=== PATIENT | male | born 1960 | race Caucasian/White ===

== ENCOUNTER → 2016-07-16 | Outpatient (CLI) | payer BC ==
[~2016-07-16] MED LIST: ACET-1311 PO; ADAL1KIT INJ; ADAL40KI SC; ALBUAER19 INH; ALPR0.25 PO; AMLO10TA2 PO; APR25 PO; ASPI81TA21 PO; BUPR-79 PO; BUPR150T5 PO; BUPRTAB PO; BUTA1CAP17 PO; CHOL100010 PO; CIPR1TAB11 PO; DICY10CA55 PO; FLAGYL PO; FLM4 PO; FLUO0.05 TOP; FLUO20CA35 PO; FLUT0.0529 NAE; FLUT0.15 NAE; FLUT1INH INH; LIDO4CRE10 TOP; LISI40TA PO; LPT/40 PO; MAGN1CAP2 PO; MAGN400T6 PO; METO50TA16 PO; NF34 TOP; OMEGCAP2 PO; OMEP20CA9 PO; ONDA4TAB10 SL; OPTIRAY 320 IV PRN; OXGN; PANC1CAP21 PO; PANC5000 PO; POT1TAB PO; TAMS0.4C38 PO; TRAM-10 PO; VITA1TAB6 PO; VITACAP14 PO; VITAMIN B PO; VITATAB19 PO; VNTHFA/IN INH
--- NOTE | 2016-07-16 08:23 | DIAGNOSTIC IMAGING REPORT ---
CT SCAN OF THE ABDOMEN COMBO CLINICAL HISTORY: Generalized abdominal pain. COMPARISON STUDY: Abdominal CT dated 03/22/2016. TECHNIQUE: Before and following the IV administration of 118 cc of Optiray 320, CT scan of the abdomen is performed from the lung bases to the pelvic inlet. Images are reviewed in the axial, sagittal, and coronal planes. IV contrast was administered without complication. Automated dose control exposure was utilized. CT DOSE: 1505.88 mGycm FINDINGS: Lung bases: The heart is normal in size and without pericardial effusion. Emphysema is noted at the lung bases. There is linear scarring versus atelectasis in lower lobes. No airspace consolidation or pleural effusion is seen. There is a tiny hiatal hernia. Liver: The contrast-enhanced liver is normal in size, contour, and attenuation. Scattered hepatic cysts measure up to 1 mm. Additional subcentimeter hepatic hypodensities also likely represent cysts but are too small for definitive characterization. There is no intrahepatic biliary ductal dilatation. The hepatic veins and portal veins are patent. Gallbladder: Surgically absent noting clips in the gallbladder fossa. Spleen: Normal in size and attenuation. Pancreas: Unremarkable. Adrenal glands: Unremarkable. Kidneys: The contrast enhanced kidneys are normal in size and without hydronephrosis. There are at least 7 nonobstructing left renal calculi measuring up to 6 mm. There are least 12 right nonobstructing renal calculi measuring up to 4 mm. No stones are seen in the proximal or mid ureters. A circumaortic left renal vein is incidentally noted. A 7.1 cm cyst is noted in the interpolar left kidney. Additional subcentimeter cortical hypodensities also likely represent cysts but are too small for definitive characterization. No enhancing cortical mass lesion is appreciated. Abdominal vasculature: The abdominal aorta is normal in course and caliber noting moderate atherosclerotic calcification. Bowel: Visualized portions of the small bowel and colon are normal in course and caliber. There is a tiny duodenal diverticulum. The appendix is well-visualized and normal. Peritoneum: There is no intraperitoneal free air or abdominal ascites. There is a small fat-containing local hernia. Lymphadenopathy: None. Skeletal structures: No lytic or blastic lesions are seen. IMPRESSION: 1. There are no acute infectious or inflammatory findings in the abdomen. 2. There are numerous bilateral nonobstructing renal calculi as above. There is no hydronephrosis, and no calculi are identified in the proximal to mid ureters. 3. Emphysematous change is noted at the lung bases. 4. Additional findings as detailed above. Electronically signed by: Ryan Ruiz M.D. 07/16/2016 8:22 AM Dictated Date/Time: 07/16/2016 8:06 AM
== END | disposition home or self-care (01) ==
LOC: C.CTS 05:48
PROVIDERS: ATTEND Family Medicine
DX: R10.84 Generalized abdominal pain (principal); N20.0 Calculus of kidney

== ENCOUNTER → 2016-09-08 | Outpatient (CLI) | payer BC ==
--- NOTE | 2016-09-08 14:08 | DIAGNOSTIC IMAGING REPORT ---
CT SCAN OF THE ABDOMEN AND PELVIS WITH IV CONTRAST CLINICAL HISTORY: Chronic generalized abdominal pain. COMPARISON STUDY: Prior abdominal CT scans, most recently dated 07/16/2016. TECHNIQUE: Following the IV administration of 94 cc of Optiray 320, CT scan of the abdomen and pelvis is performed from the lung bases to the proximal femora. Images reviewed in the axial, sagittal, and coronal planes. IV contrast was administered for without complication. CT DOSE: 826.84 mGycm FINDINGS: Lung bases: The heart is normal in size and without pericardial effusion. There is elevation of the right hemidiaphragm with associated atelectasis. No airspace consolidation or pleural effusion is seen. Mild emphysematous changes are suspected. A small hiatal hernia is noted. Liver: The contrast-enhanced liver is normal in size, contour, and attenuation. An 11 mm cyst is seen in the left lobe. Additional subcentimeter hypodensities also likely represent cysts but are too small for definitive characterization. There is minimal central intrahepatic biliary ductal dilatation, likely related to previous cholecystectomy. The hepatic veins and portal veins are patent. Gallbladder: Surgically absent noting clips in the gallbladder fossa. Spleen: Normal in size and attenuation. Pancreas: Unremarkable. Adrenal glands: Unremarkable. Kidneys: The contrast-enhanced kidneys are normal in size and without hydronephrosis. There are numerous (greater than 10) small bilateral nonobstructing renal calculi. No ureteral calculus is seen. The largest stone is on the left and measures up to 6 mm. There is a 6.8 cm left renal cyst. Additional subcentimeter cortical hypodensities also likely represent cysts but are too small for definitive characterization. The kidneys enhance symmetrically. A circumaortic left renal vein is incidentally noted. Abdominal vasculature: The abdominal aorta is normal in course and caliber noting mild atherosclerotic calcification. Bowel: The small bowel and colon are normal in course and caliber. There is moderate sigmoid diverticulosis without CT evidence of acute diverticulitis. Moderate colonic fecal retention is noted. The appendix is not discretely visualized. A tiny duodenal diverticulum is incidentally noted. Peritoneum: There is no intraperitoneal free air or abdominal ascites. There is a small fat-containing umbilical hernia. Lymphadenopathy: None. Pelvic viscera: The bladder, prostate, and seminal vesicles are normal as visualized. Small varicoceles are suspected. There is a small fat-containing right inguinal hernia. Skeletal structures: No lytic or blastic osseous lesions are seen. There is mild lumbosacral spondylosis. IMPRESSION: 1. There are no acute infectious or inflammatory findings in the abdomen or pelvis. There is been no significant change from recent prior examinations. 2. Moderate sigmoid diverticulosis without CT evidence of acute diverticulitis. 3. Numerous bilateral nonobstructing renal calculi. 4. Emphysematous changes are suspected at the lung bases. 5. Additional findings as detailed above. Electronically signed by: Ryan Ruiz M.D. 09/08/2016 2:06 PM Dictated Date/Time: 09/08/2016 2:00 PM
== END | disposition home or self-care (01) ==
LOC: C.CTS 11:18
PROVIDERS: ATTEND Family Medicine
DX: R10.84 Generalized abdominal pain (principal); K57.32 Diverticulitis of large intestine without perforation or abscess without bleeding; K57.30 Diverticulosis of large intestine without perforation or abscess without bleeding; J43.9 Emphysema, unspecified; N20.0 Calculus of kidney; K40.90 Unilateral inguinal hernia, without obstruction or gangrene, not specified as recurrent; K42.9 Umbilical hernia without obstruction or gangrene

== ENCOUNTER → 2016-09-23 | Outpatient (CLI) | payer BC ==
[~2016-09-23] MED LIST changes: -OPTIRAY 320 IV PRN
--- NOTE | 2016-09-23 09:24 | DIAGNOSTIC IMAGING REPORT ---
GASTROGRAFIN ENEMA CLINICAL HISTORY: Abdominal pain and nausea. Abnormal CT scan. COMPARISON STUDY: CT of the abdomen and pelvis September 08, 2016. FLUOROSCOPY TIME: 1.2 minutes. FINDINGS: Initially, a occupational therapy manager KUB was obtained. A single contrast Gastrografin enema was then performed following placement of a barium enema tip. 4 fluoroscopic images were obtained. Mucosal detail is diminished given single contrast technique with Gastrografin. However, no suspicious mucosal lesion was identified. There is extensive sigmoid diverticulosis. Contrast passed into the cecum. There was reflux of contrast into the small bowel. IMPRESSION: 1. Extensive sigmoid diverticulosis. 2. Otherwise, unremarkable single contrast Gastrografin enema. Decreased sensitivity for detection of mucosal lesions given single contrast Gastrografin technique although no suspicious findings. Electronically signed by: Malick Liz M.D. 09/23/2016 9:23 AM Dictated Date/Time: 09/23/2016 9:20 AM
== END | disposition home or self-care (01) ==
LOC: C.RAD 08:29
PROVIDERS: ATTEND Colon & Rectal Surgery
DX: K57.32 Diverticulitis of large intestine without perforation or abscess without bleeding (principal); R10.84 Generalized abdominal pain; K57.30 Diverticulosis of large intestine without perforation or abscess without bleeding

== ENCOUNTER → 2016-12-02 | Outpatient (CLI) | payer OTHER ==
[~2016-12-02] MED LIST changes: -FLUT1INH INH
--- NOTE | 2016-12-02 12:45 | DIAGNOSTIC IMAGING REPORT ---
CHEST 2 VIEWS ROUTINE CLINICAL HISTORY: J45.909 [id number] dyspnea COMPARISON STUDY: 08/22/2014 FINDINGS: Chronic fibrotic scarring left lung base. Lungs otherwise are clear. Diaphragms are smooth. No evidence for cardiac enlargement. IMPRESSION: Chronic change. No acute process. The above report was generated using voice recognition software. It may contain grammatical, syntax or spelling errors. Electronically signed by: Jerardo Gutierrez M.D. 12/02/2016 12:44 PM Dictated Date/Time: 12/02/2016 12:43 PM
== END | disposition home or self-care (01) ==
LOC: C.RAD1850 12:35
PROVIDERS: ATTEND Physician Assistant
DX: J45.909 Unspecified asthma, uncomplicated (principal)

== ENCOUNTER 2017-01-24 09:23 | Emergency (ER) | payer OTHER ==
[~2017-01-24] VITALS: Ht 180.3 cm; Wt 97.0 kg
[~2017-01-24 09:23] MED LIST changes: -ACET-1311 PO; -ADAL1KIT INJ; -BUPR-79 PO; -BUPRTAB PO; -BUTA1CAP17 PO; -CIPR1TAB11 PO; -FLAGYL PO; -FLUT0.15 NAE; -LIDO4CRE10 TOP; -MAGN400T6 PO; -NF34 TOP; -ONDA4TAB10 SL; -PANC5000 PO; -VITA1TAB6 PO; -VITACAP14 PO; -VNTHFA/IN INH
[2017-01-24 09:27] VITALS: TEMP 36.9; Ht 180.3 cm; Wt 97.0 kg
[2017-01-24] MEDS ORDERED: ACETAMINOPHEN 500 MG TAB PO STA (10:15)
[2017-01-24] MEDS ORDERED: METOCLOPRAMIDE HCL INJ 5 MG/ML 2 ML VIAL IV STA (10:15)
[2017-01-24] MEDS ORDERED: DiphenhydrAMINE HCL 50 MG/ML VIAL IV STA (10:15)
[2017-01-24] MEDS ORDERED: SODIUM CHLORIDE 0.9% 1000ML 1,000 ML IV SCH (10:15)
[2017-01-24 10:31] LABS: BASO % 0.5 %; BASO ABS # 0.06 K/uL (0-0.2); COMPLETE YES; EOS % 1.3 %; HEMATOCRIT 39.9 % (42-52); IG% 0.8 %; LYMPH % 31.4 %; LYMPH ABS # 3.53 K/uL (1.2-3.4); MEAN CELL VOLUME 91.3 fL (80-100); MEAN CORPUSCULAR HEMOGLOBIN 30.2 pg (25-34); MEAN CORPUSCULAR HGB CONC 33.1 g/dl (32-36); MEAN PLATELET VOLUME 10.2 fL (7.4-10.4); MONO % 7.5 %; NEUT % 58.5 %; PLATELET COUNT 237 K/uL (130-400); RED BLOOD COUNT 4.37 M/uL (4.7-6.1); WHITE BLOOD COUNT 11.23 K/uL (4.8-10.8)
[2017-01-24 10:41] LABS: ALT/SGPT 45 U/L (12-78); AST/SGOT 26 U/L (15-37); BLOOD UREA NITROGEN 20 mg/dl (7-18); BUN/CREATININE RATIO 18.4 (10-20); CALCIUM 8.7 mg/dl (8.5-10.1); CARBON DIOXIDE 26 mmol/L (21-32); CHLORIDE 102 mmol/L (98-107); GLUCOSE 109 mg/dl (70-99); MAGNESIUM 1.6 mg/dl (1.8-2.4); POTASSIUM 4.5 mmol/L (3.5-5.1); SODIUM 137 mmol/L (136-145)
[2017-01-24] MEDS ORDERED: FLUT0.15 NAE (10:43)
[2017-01-24] MEDS ORDERED: BUPR-79 PO (10:43)
[2017-01-24] MEDS ORDERED: NF34 TOP (10:43)
[2017-01-24 10:44] LABS: ALKALINE PHOSPHATASE 112 U/L (45-117); PHOSPHORUS 2.9 mg/dl (2.5-4.9)
--- NOTE | 2017-01-24 10:44 | EMERGENCY ROOM VISIT NOTE ---
History Report prepared by Monica: Josr Medellin Under the Supervision of: Dr. Nate Castro M.D. First contact with patient: 09:30 Chief Complaint: NAUSEA Stated Complaint: NAUSEA,DIZZY,NUMBNESS History of Present Illness The patient is a 56 year old white male with a past medical history of HTN, HLD , kidney stones, pancreatitis, IBS, laparoscopic cholecystectomy who presents to the ED with a cc of constant nausea beginning about two weeks ago. Positive headache, numbness, tingling, light headedness, eye twitching, leg twitching, leg swelling, and fatigue. Negative recent trauma, vomiting, recent travel, sick contacts, congestion, and sore throat. He states that he has been having troubles with his magnesium recently, and he thinks that it is low. Source of History: patient Onset: two weeks ago Position: other (global) Quality: other (nausea) Timing: constant Associated Symptoms: + headache, + fatigue, + numbness Note: Associated symptoms: tingling, light headed, eye twitching, leg twitching, leg swelling Review of Systems See HPI for pertinent positives and negatives. A total of ten systems were reviewed and were otherwise negative. Past Medical & Surgical Medical Problems: (1) Depression (2) Diverticulosis (3) GERD (gastroesophageal reflux disease) (4) Hemorrhoids (5) Hiatal hernia (6) High cholesterol (7) HTN (hypertension) (8) HTN (hypertension) (9) IBS (irritable bowel syndrome) (10) Kidney stones (11) Psoriasis Surgical Problems: (1) S/P cholecystectomy Family History FHx: diabetes mellitus FHx: kidney disease Heart disease Social History Smoking Status: Current Every Day Smoker Alcohol Use: occasionally Marital Status: single Occupation Status: employed Current/Historical Medications Scheduled Adalimumab (Humira), 40 MG INJ [id number] Amlodipine Besylate (Norvasc), 10 MG PO QAM Aspirin Enteric Coated (Ecotrin Or Generic), 81 MG PO QAM Atorvastatin (Lipitor), 40 MG PO QPM Bupropion Hcl (Wellbutrin Xl), 150 MG PO DAILY Cholecalciferol (Vitamin D), 1,000 UNITS PO DAILY Clobetasol Propionate (Clobetasol Propionate), 1 APPLN TOP BID Dicyclomine Hcl (Bentyl), 10 MG PO BID Fluoxetine (Prozac), 60 MG PO QAM Fluticasone Propionate (Nasal) (Flonase Allergy Relief), 2 SPRAYS SETH DAILY Home O2 Therapy (Oxygen), 2 LITERS NA HS Hydralazine Hcl (Apresoline), 25 MG PO BID Lidocaine (Anorectal) (Lidocaine), 1 APPLN TOP BID Lisinopril (Zestril), 40 MG PO QAM Magnesium Oxide (Mag-Ox), 800 MG PO AMHS Magnesium Oxide (Mg Supplement (Magnesium), 400 MG PO DAILY Metoprolol Tartrate (Lopressor) (Lopressor), 50 MG PO BID [place]-3 Fatty Acids (Fish Oil), 3 CAP PO QPM Omeprazole (Prilosec), 20 MG PO BID Ondasetron Odt (Zofran Odt), 4 MG SL Q6H Pancrelipase (Lipase-Protease- (Zenpep), 1 CAP PO QID Pot Phosphate Monobasic W/ Sod (Av-Phos 250 Neutral [id number] mg), 1 TAB PO QID Tamsulosin HCl (Tamsulosin HCl), 0.4 MG PO HS Vitamin A (Vitamin A), 8,000 UNITS PO DAILY Scheduled PRN Albuterol Hfa (Ventolin Hfa), 2-4 PUFFS INH Q6H PRN for SOB/Wheezing Alprazolam (Xanax), 0.25 MG PO TID PRN for Anxiety Tramadol (Ultram), 50 MG PO Q6H PRN for Pain Allergies Coded Allergies: Sulfa Drugs (Verified Allergy, Mild, CHILDHOOD, 01/24/17) Physical Exam Vital Signs Date Time Temp Pulse Resp B/P (MAP) Pulse Ox O2 Delivery O2 Flow Rate FiO2 01/24/17 12:54 56 20 115/66 93 01/24/17 11:02 60 16 112/68 90 Room Air 01/24/17 10:47 60 01/24/17 09:27 36.9 66 20 137/88 96 Room Air Physical Exam GENERAL: Awake, alert, well-appearing, NAD HENT: Normocephalic, atraumatic. EYES: Normal conjunctiva. Sclera non-icteric. NECK: Supple. No nuchal rigidity. FROM. RESPIRATORY: CTAB, no rhonchi, wheezing, crackles CARDIAC: RRR, no MRG ABDOMEN: Soft, NTND, BS+ MSK: No chest wall TTP, no LE edema NEURO: GCS 15, CN 2-12 intact, moves all 4s on command. Good finger to nose. No dysmetria. No sensory deficits. SKIN: No rash or jaundice noted. Medical Decision & Procedures Laboratory Results 01/24/17 09:34 Red Blood Count 4.37, Mean Corpuscular Volume 91.3, Mean Corpuscular Hemoglobin 30.2, Mean Corpuscular Hemoglobin Concent 33.1, Mean Platelet Volume 10.2, Neutrophils (%) (Auto) 58.5, Lymphocytes (%) (Auto) 31.4, Monocytes (%) (Auto) 7.5, Eosinophils (%) (Auto) 1.3, Basophils (%) (Auto) 0.5, Neutrophils # (Auto) 6.56, Lymphocytes # (Auto) 3.53, Monocytes # (Auto) 0.84, Eosinophils # (Auto) 0.15, Basophils # (Auto) 0.06 01/24/17 09:34 Test 01/24/17 09:34 01/24/17 10:40 White Blood Count 11.23 K/uL (4.8-10.8) Red Blood Count 4.37 M/uL (4.7-6.1) Hemoglobin 13.2 g/dL (14.0-18.0) Hematocrit 39.9 % (42-52) Mean Corpuscular Volume 91.3 fL (80-100) Mean Corpuscular Hemoglobin 30.2 pg (25-34) Mean Corpuscular Hemoglobin Concent 33.1 g/dl (32-36) Platelet Count 237 K/uL (130-400) Mean Platelet Volume 10.2 fL (7.4-10.4) Neutrophils (%) (Auto) 58.5 % Lymphocytes (%) (Auto) 31.4 % Monocytes (%) (Auto) 7.5 % Eosinophils (%) (Auto) 1.3 % Basophils (%) (Auto) 0.5 % Neutrophils # (Auto) 6.56 K/uL (1.4-6.5) Lymphocytes # (Auto) 3.53 K/uL (1.2-3.4) Monocytes # (Auto) 0.84 K/uL (0.11-0.59) Eosinophils # (Auto) 0.15 K/uL (0-0.5) Basophils # (Auto) 0.06 K/uL (0-0.2) RDW Standard Deviation 43.8 fL (36.4-46.3) RDW Coefficient of Variation 13.2 % (11.5-14.5) Immature Granulocyte % (Auto) 0.8 % Immature Granulocyte # (Auto) 0.09 K/uL (0.00-0.02) Anion Gap 9.0 mmol/L (3-11) Est Creatinine Clear Calc Drug Dose 90.1 ml/min Estimated GFR () 87.1 Estimated GFR (Non- 75.2 BUN/Creatinine Ratio 18.4 (10-20) Calcium Level 8.7 mg/dl (8.5-10.1) Phosphorus Level 2.9 mg/dl (2.5-4.9) Magnesium Level 1.6 mg/dl (1.8-2.4) Total Bilirubin 0.3 mg/dl (0.2-1) Direct Bilirubin < 0.1 mg/dl (0-0.2) Aspartate Amino Transf (AST/SGOT) 26 U/L (15-37) Alanine Aminotransferase (ALT/SGPT) 45 U/L (12-78) Alkaline Phosphatase 112 U/L (45-117) Total Protein 7.3 gm/dl (6.4-8.2) Albumin 3.8 gm/dl (3.4-5.0) Lipase 262 U/L (73-393) Urine Color YELLOW Urine Appearance CLEAR (CLEAR) Urine pH 7.0 (4.5-7.5) Urine Specific [place] 1.004 (1.000-1.030) Urine Protein NEG (NEG) Urine Glucose (UA) NEG (NEG) Urine Ketones NEG (NEG) Urine Occult Blood NEG (NEG) Urine Nitrite NEG (NEG) Urine Bilirubin NEG (NEG) Urine Urobilinogen NEG (NEG) Urine Leukocyte Esterase NEG (NEG) Laboratory results reviewed by me Medications Administered Medications (Trade) Dose Ordered Sig/Silvana Route Start Time Stop Time Status Last Admin Dose Admin Sodium Chloride 1,000 ml @ 999 mls/hr Q1H1M IV 01/24/17 10:15 01/24/17 13:39 DC 01/24/17 10:15 999 MLS/HR Metoclopramide HCl (Reglan Inj) 10 mg NOW STAT IV 01/24/17 10:15 01/24/17 10:17 DC 01/24/17 10:31 10 MG Diphenhydramine HCl (Benadryl Inj) 25 mg NOW STAT IV 01/24/17 10:15 01/24/17 10:17 DC 01/24/17 10:31 25 MG Acetaminophen (Tylenol Tab) 1,000 mg NOW STAT PO 01/24/17 10:15 01/24/17 10:17 DC 01/24/17 10:31 1,000 MG Magnesium Oxide (Mag-Ox Tab) 800 mg ONE STAT PO 01/24/17 11:10 01/24/17 11:11 DC 01/24/17 11:32 800 MG Dexamethasone Sodium Phosphate (Decadron Inj) 10 mg NOW ONCE IV 01/24/17 11:45 01/24/17 11:46 DC 01/24/17 11:40 10 MG Magnesium Sulfate (Magnesium Sulfate) 1 gm NOW STAT IV 01/24/17 11:35 01/24/17 11:36 DC 01/24/17 11:40 1 GM ECG Indication: nausea Rate (beats per minute): 65 Rhythm: normal sinus Findings: other (Normal intervals, questionable ST elevation in AVF and Lead 3 , TWI in AVL) Comparison ECG Date: 07/23/16 Change: no significant change ED Course 0954: The patient was evaluated in room B3. A complete history and physical exam was performed. 1116: I reevaluated the patient, and he feels well. He is going to finish his fluids and magnesium and go home. The patient has no neuro deficits. 1220: I reevaluated the patient. Discussed results and discharge instructions: He verbalized understanding and agreement. The patient is ready for discharge. Medical Decision The patient is a 56 year old white male with a past medical history of HTN, HLD , kidney stones, pancreatitis, IBS, laparoscopic cholecystectomy who presents to the ED with a cc of constant nausea beginning about two weeks ago. Positive headache, numbness, tingling, light headedness, eye twitching, leg twitching, leg swelling, and fatigue. Negative recent trauma, vomiting, recent travel, sick contacts, congestion, and sore throat. He states that he has been having troubles with his magnesium recently, and he thinks that it is low. Triage Nursing notes reviewed. The patient's presentation and history were concerning for etiologies such as metabolic, infection, hypo/hyperglycemia, electrolyte abnormalities, cardiac sources, intracerebral event, toxicologic, neurologic, as well as others were entertained. Patient was seen and evaluated at the bedside. He was complaining of multiple symptoms. Patient states though that this constellation of symptoms normally occurs when his magnesium is low and has been on supplements for this. Patient did not complain of any acute chest pain or shortness of breath. Patient had an EKG with questionable a trace elevations in 3 and aVF however denied any chest pain had a negative troponin. Also this wasn't changed from prior. Less likely ACS given the aforementioned. Patient was feeling improved. Patient was noted to have mild low magnesium which was repleted. Patient's headache improved with symptomatic and supportive care. Patient no neurologic deficits. Unlikely to be stroke or TIA. Patient was given strict follow-up, discharge, and return precautions. Patient agreed with plan of care patient was safely discharged home. Medication Reconcilliation Current Medication List: was personally reviewed by me Blood Pressure Screening Patient's blood pressure: Normal blood pressure Impression Primary Impression: Nausea Additional Impression: Hypomagnesemia Scribe Attestation The scribe's documentation has been prepared under my direction and personally reviewed by me in its entirety. I confirm that the note above accurately reflects all work, treatment, procedures, and medical decision making performed by me. Departure Information Dispostion Home / Self-Care Prescriptions Ondasetron Odt (ZOFRAN ODT) 4 Mg Tab 4 MG SL Q6H for Nausea, #6 TAB Prov: Nate Castro M.D. 01/24/17 Referrals No Doctor, Assigned (PCP) Patient Instructions Hypomagnesemia Cesar, My [facility] [address] Additional Instructions Please return to the emergency department if you have worsening or recurrent symptoms not amenable to at-home treatment. Please call for a follow-up appointment with her primary care physician. Please take your medications as prescribed. If you have other concerns and/or complaints please feel free to also call your primary care physician's office or return the ED for further evaluation, management, and treatment. You have been examined and treated today on an emergency basis only. This is not a substitute for, or an effort to provide, complete comprehensive medical care. It is impossible to recognize and treat all injuries or illnesses in a single emergency department visit. It is therefore important that you follow up closely with [facility]. Call as soon as possible for an appointment. Thank you for your time and consideration. I look forward to speaking with you again soon. Please don't hesitate to call us if you have any questions. Problem Qualifiers
[2017-01-24] MEDS ORDERED: CHOL100010 PO (10:48)
[2017-01-24] MEDS ORDERED: ADAL1KIT INJ (10:48)
[2017-01-24] MEDS ORDERED: VITA1TAB6 PO (10:48)
[2017-01-24] MEDS ORDERED: VNTHFA/IN INH (10:48)
[2017-01-24 10:54] LABS: URINE APPEARANCE CLEAR (CLEAR); URINE BILIRUBIN NEG (NEG); URINE COLOR YELLOW; URINE NITRITE NEG (NEG); URINE SPECIFIC GRAVITY 1.004 (1.000-1.030); UROBILINOGEN NEG (NEG); ZZUR CULT IF INDIC CLEAN CATCH NO
[2017-01-24 10:55] LABS: MANUAL MICROSCOPIC REQUIRED? NO; REVIEW REQ? NO
[2017-01-24] MEDS ORDERED: MAGNESIUM OXIDE 400 MG TAB PO STA (11:10)
[2017-01-24] MEDS ORDERED: MAGN400T6 PO (11:14)
[2017-01-24] MEDS ORDERED: POT1TAB PO (11:14)
[2017-01-24] MEDS ORDERED: LIDO4CRE10 TOP (11:14)
[2017-01-24] MEDS ORDERED: BUPRTAB PO (11:14)
[2017-01-24] MEDS ORDERED: MAGNESIUM SULFATE 1GM / D5W 1 GM BAG IV STA (11:35)
[2017-01-24] MEDS ORDERED: DEXAMETHASONE SOD INJ 10 MG/ML VIAL IV ONE (11:45)
[2017-01-24] MEDS ORDERED: ONDA4TAB10 SL (12:21)
[2017-01-24 12:54] VITALS: BP 115/66; PULSE 56; O2SAT 93
== END 2017-01-24 12:55 | disposition home or self-care (01) ==
LOC: C.EDB 09:27
DX: R11.0 Nausea (principal); E83.42 Hypomagnesemia; I10 Essential (primary) hypertension; E78.5 Hyperlipidemia, unspecified; Z87.442 Personal history of urinary calculi; K58.9 Irritable bowel syndrome, unspecified; Z90.49 Acquired absence of other specified parts of digestive tract; F32.9 Major depressive disorder, single episode, unspecified; K21.9 Gastro-esophageal reflux disease without esophagitis; L40.9 Psoriasis, unspecified; Z83.3 Family history of diabetes mellitus; Z84.1 Family history of disorders of kidney and ureter; F17.210 Nicotine dependence, cigarettes, uncomplicated; Z79.82 Long term (current) use of aspirin; Z79.899 Other long term (current) drug therapy

== ENCOUNTER → 2017-04-27 | Outpatient (CLI) | payer OTHER ==
[~2017-04-27] MED LIST changes: +ADAL1KIT INJ; -ADAL40KI SC; -ALBUAER19 INH; -BUPR150T5 PO; +BUPRTAB PO; -FLUO0.05 TOP; -FLUT0.0529 NAE; +FLUT0.15 NAE; +FLUT1INH INH; +LIDO4CRE10 TOP; -MAGN1CAP2 PO; +NF34 TOP; +ONDA4TAB10 SL; +SLWMEC PO; -TAMS0.4C38 PO; -TRAM-10 PO; +VITA1TAB6 PO; -VITAMIN B PO; -VITATAB19 PO; +VNTHFA/IN INH
[2017-04-27 12:59] LABS: BLOOD UREA NITROGEN 21 mg/dl (7-18); GLUCOSE 119 mg/dl (70-99)
[2017-04-27 13:00] LABS: CALCIUM 8.8 mg/dl (8.5-10.1); CARBON DIOXIDE 30 mmol/L (21-32); CREATININE 0.98 mg/dl (0.60-1.40); POTASSIUM 3.9 mmol/L (3.5-5.1); SODIUM 134 mmol/L (136-145)
== END | disposition home or self-care (01) ==
LOC: C.LAB1850 11:10
PROVIDERS: ATTEND Physician Assistant
DX: G47.30 Sleep apnea, unspecified (principal)

== ENCOUNTER 2017-05-28 18:57 | Emergency (ER) | payer OTHER ==
[~2017-05-28] VITALS: Ht 180.3 cm; Wt 96.8 kg
[2017-05-28 19:00] VITALS: TEMP 36.8; Ht 180.3 cm; Wt 96.8 kg
[2017-05-28] MEDS ORDERED: ONDANSETRON INJ 2 MG/ML 2 ML VIAL IV STA (19:16)
[2017-05-28] MEDS ORDERED: KETOROLAC TROMETHAMINE 30 MG/ML VIAL IV STA (19:16)
[2017-05-28] MEDS ORDERED: MoRPHine SULFATE 4 MG/ML 1 ML CARP\\VIAL IV PRN (19:30)
[2017-05-28 19:33] LABS: BASO % 0.4 %; BASO ABS # 0.05 K/uL (0-0.2); EOS % 1.8 %; EOS ABS # 0.21 K/uL (0-0.5); HEMATOCRIT 36.3 % (42-52); HEMOGLOBIN 12.7 g/dL (14.0-18.0); IG# 0.04 K/uL (0.00-0.02); LYMPH % 38.9 %; MEAN CELL VOLUME 90.8 fL (80-100); MEAN CORPUSCULAR HEMOGLOBIN 31.8 pg (25-34); MEAN PLATELET VOLUME 9.8 fL (7.4-10.4); MONO % 9.4 %; MONO ABS # 1.11 K/uL (0.11-0.59); NEUT % 49.2 %; NEUT ABS # 5.83 K/uL (1.4-6.5); PLATELET COUNT 211 K/uL (130-400); RED CELL DISTRIBUTION WIDTH CV 13.1 % (11.5-14.5); RED CELL DISTRIBUTION WIDTH SD 43.6 fL (36.4-46.3); WHITE BLOOD COUNT 11.84 K/uL (4.8-10.8)
--- NOTE | 2017-05-28 19:41 | EMERGENCY ROOM VISIT NOTE ---
History Report prepared by Monica: Tawanda Angelo Under the Supervision of: Dr. Ryan Yanez M.D. First contact with patient: 19:09 Chief Complaint: ABDOMINAL PAIN Stated Complaint: SEVERE ABD PAIN History of Present Illness The patient is a 56 year old male who presents to the Emergency Room with complaints of waxing/waning lower quadrant abdominal pain that started two days ago. He rates his pain as a 9/10 in severity and describes his pain as a stabbing sensation. He states that his pain is worsened with leaning over. The patient states that he had two bowel movements two days ago that he describes as "mucousy and pus-like". He reports that in the two days he had 20 bowel movements. The patient states that he has been experiencing lower abdominal pain that moved into the right lower quadrant of his abdomen over the last couple of days. He reports that the pain is from his umbilicus to his rectum. He states that he has also been febrile and has been experiencing diaphoresis and nausea for the last couple of days. The patient reports that whenever he urinates, he has been experiencing pain and notices it has been "harder to urinate". 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 Cadena, yesterday and he was put on Cipro. He reports that he has had 3 doses of Cipro so far. The patient states that he does not believe the underlying cause is diverticulitis since his diverticulitis is typically on his left side. He reports a history of diverticulitis, hernia repair, cholecystectomy, herniated disc, and pancreatitis. Per the patient's record, the patient has had [address] scan in the last 5 years. Source of History: patient Onset: two days ago Position: abdomen (RLQ) Symptom Intensity: 9/10 Quality: stabbing Timing: waxes/wanes Modifying Factors (Worsening): other (leaning over) Modifying Factors (Relieving): other (Cipro) Associated Symptoms: + nausea, + diarrhea, + urinary symptoms Review of Systems See HPI for pertinent positives & negatives. A total of 10 systems reviewed and were otherwise negative. Past Medical & Surgical Medical Problems: (1) Abdominal pain (2) Acute left flank pain (3) Back pain with sciatica (4) Dehydration (5) Depression (6) Diarrhea (7) Diverticulitis (8) Diverticulosis (9) Electrolyte abnormality (10) GERD (gastroesophageal reflux disease) (11) Hemorrhoids (12) Hiatal hernia (13) High cholesterol (14) HTN (hypertension) (15) HTN (hypertension) (16) Hypocalcemia (17) Hypokalemia (18) Hypomagnesemia (19) Hypomagnesemia (20) IBS (irritable bowel syndrome) (21) Inguinal hernia (22) Kidney stones (23) Kidney stones (24) Pancreatitis (25) Paresthesia (26) Paresthesia (27) Paresthesias (28) Psoriasis (29) Shoulder dislocation Surgical Problems: (1) S/P cholecystectomy Family History FHx: diabetes mellitus FHx: kidney disease Heart disease Social History Smoking Status: Current Every Day Smoker Alcohol Use: occasionally Marital Status: single Housing Status: lives alone Occupation Status: employed Current/Historical Medications Scheduled Adalimumab (Humira), 40 MG INJ [id number] Amlodipine Besylate (Norvasc), 10 MG PO QAM Aspirin Enteric Coated (Ecotrin Or Generic), 81 MG PO QAM Atorvastatin (Lipitor), 40 MG PO QPM Bupropion Hcl (Wellbutrin Xl), 150 MG PO DAILY Cholecalciferol (Vitamin D), 1,000 UNITS PO DAILY Ciprofloxacin Hcl (Cipro), 500 MG PO BID Dicyclomine Hcl (Bentyl), 10 MG PO BID Fluoxetine (Prozac), 60 MG PO QAM Fluticasone Furoate-Vilanterol (Breo Ellipta), 1 PUFF INH QAM Fluticasone Propionate (Nasal) (Flonase Allergy Relief), 2 SPRAYS SETH DAILY Home O2 Therapy (Oxygen), 2 LITERS NA HS Hydralazine Hcl (Apresoline), 25 MG PO BID Lisinopril (Zestril), 40 MG PO QAM Magnesium Chloride (Slow-Mag Tab), 2 TABS PO TID Metoprolol Tartrate (Lopressor) (Lopressor), 50 MG PO BID Metronidazole (Flagyl), 500 MG PO TID Avon-3 Fatty Acids (Fish Oil), 3 CAP PO QPM Omeprazole (Prilosec), 20 MG PO BID Ondasetron Odt (Zofran Odt), 4 MG SL Q6H Pancrelipase (Lipase-Protease- (Zenpep), 1 CAP PO TID Pot Phosphate Monobasic W/ Sod (Av-Phos 250 Neutral 155-852-130 mg), 250 TAB PO BID Tamsulosin HCl (Tamsulosin HCl), 0.4 MG PO HS Vitamin A (Vitamin A), 8,000 UNITS PO DAILY Scheduled PRN Albuterol Hfa (Ventolin Hfa), 2 PUFFS INH Q4 PRN for SOB/Wheezing Alprazolam (Xanax), 0.25 MG PO TID PRN for Anxiety Clobetasol Propionate (Clobetasol Propionate), 1 APPLN TOP BID PRN for Lidocaine (Anorectal) (Lidocaine), 1 APPLN TOP BID PRN for affected area Allergies Coded Allergies: Sulfa Antibiotics (Verified Allergy, Mild, childhood, 05/18/17) Physical Exam Vital Signs Date Time Temp Pulse Resp B/P (MAP) Pulse Ox O2 Delivery O2 Flow Rate FiO2 05/28/17 22:54 84 16 120/72 98 05/28/17 22:29 64 18 157/90 94 Room Air 05/28/17 19:00 36.8 84 18 144/97 95 Room Air Physical Exam GENERAL: Patient is in no acute distress. HEENT: No acute trauma, normocephalic atraumatic, mucous membranes moist, no nasal congestion, no scleral icterus. NECK: No stridor, no adenopathy, no meningismus, trachea is midline. LUNGS: Clear to auscultation bilaterally, no wheeze, no rhonchi, breath sounds equal. HEART: Without murmurs gallops or rubs, regular rate and rhythm. ABDOMEN: Soft, tender to palpation in both lower quadrants but mostly on the right. Bowel sounds positive, no hernias, no peritonitis. EXTREMITIES: No cyanosis or edema, full range of motion of all the joints without pain or difficulty, no signs for acute trauma. NEUROLOGIC: Oriented x 3, no acute motor or sensory deficits, no focal weakness. SKIN: No rash, no jaundice, no diaphoresis. Medical Decision & Procedures ER Provider Diagnostic Interpretation: Radiology results as stated below per my review and radiologist interpretation: ABD/PELVIS IV AND ORAL CONT CLINICAL HISTORY: 56 years-old Male presenting with ABDOMINAL PAIN/GI--?APPY--GIVE PO AND IV CONTRAST, mid abdominal pain, bloating. TECHNIQUE: Multidetector CT of the abdomen and pelvis was performed after the administration of oral and intravenous contrast. IV contrast: 94 mL of Optiray 320. A dose lowering technique was used consistent with the principles of ALARA (as low as reasonably achievable). COMPARISON: 09/08/2016. CT DOSE (mGy.cm): The estimated cumulative dose is 737.95 mGy.cm. 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 Cholecystectomy clips. Lung bases: Minimal basilar opacities, likely atelectasis. Normal heart size. No pericardial or pleural effusion. Liver: Normal morphology. Few scattered well-defined hypodensities in the liver likely hepatic cysts or hamartomas. Patent hepatic vasculature. Biliary: Mild biliary ductal prominence likely a reservoir effect in the post cholecystectomy state. Gallbladder surgically absent. Pancreas: Normal. Spleen: Normal. Adrenal glands: Normal. Kidneys and ureters: Multiple well-defined hypodensities in the kidneys bilaterally, the largest on the left, likely simple cysts. Multiple bilateral nonobstructing renal calculi, the largest on the right measuring 6 mm and on the left measuring 4 mm. No hydronephrosis. Mild nonspecific perinephric fat stranding. Normal ureters. Bladder: Normal. Pelvic organs: Prostate and seminal vesicles normal. Bowel: Diverticulosis and wall thickening of the distal sigmoid colon. Minimal associated pericolonic fat stranding at this level immediately superior to the bladder dome. No bowel obstruction. Stomach mildly distended with contrast. Peritoneal cavity: No free fluid or intraperitoneal gas. No focal fluid collection to suggest abscess. No evidence of chapis perforation. Lymph nodes: No enlarged lymph nodes in the abdomen or pelvis. Vasculature: Atherosclerosis of the normal caliber abdominal aorta. IVC patent. Abdominal wall: Small fat-containing umbilical hernia. Musculoskeletal: Normal. IMPRESSION: 1. Findings consistent with acute uncomplicated diverticulitis in the distal sigmoid colon and immediately superior to the bladder dome. No evidence of abscess or chapis perforation. 2. Bilateral nephrolithiasis. No hydronephrosis. Electronically signed by: Giovanny Parmar M.D. 05/28/2017 10:09 PM Dictated Date/Time: 05/28/2017 10:03 PM Laboratory Results 05/28/17 19:20 Red Blood Count 4.00, Mean Corpuscular Volume 90.8, Mean Corpuscular Hemoglobin 31.8, Mean Corpuscular Hemoglobin Concent 35.0, Mean Platelet Volume 9.8, Neutrophils (%) (Auto) 49.2, Lymphocytes (%) (Auto) 38.9, Monocytes (%) (Auto) 9.4, Eosinophils (%) (Auto) 1.8, Basophils (%) (Auto) 0.4, Neutrophils # (Auto) 5.83, Lymphocytes # (Auto) 4.60, Monocytes # (Auto) 1.11, Eosinophils # (Auto) 0.21, Basophils # (Auto) 0.05 05/28/17 19:20 Test 05/28/17 19:20 05/28/17 19:36 White Blood Count 11.84 K/uL (4.8-10.8) Red Blood Count 4.00 M/uL (4.7-6.1) Hemoglobin 12.7 g/dL (14.0-18.0) Hematocrit 36.3 % (42-52) Mean Corpuscular Volume 90.8 fL (80-100) Mean Corpuscular Hemoglobin 31.8 pg (25-34) Mean Corpuscular Hemoglobin Concent 35.0 g/dl (32-36) Platelet Count 211 K/uL (130-400) Mean Platelet Volume 9.8 fL (7.4-10.4) Neutrophils (%) (Auto) 49.2 % Lymphocytes (%) (Auto) 38.9 % Monocytes (%) (Auto) 9.4 % Eosinophils (%) (Auto) 1.8 % Basophils (%) (Auto) 0.4 % Neutrophils # (Auto) 5.83 K/uL (1.4-6.5) Lymphocytes # (Auto) 4.60 K/uL (1.2-3.4) Monocytes # (Auto) 1.11 K/uL (0.11-0.59) Eosinophils # (Auto) 0.21 K/uL (0-0.5) Basophils # (Auto) 0.05 K/uL (0-0.2) RDW Standard Deviation 43.6 fL (36.4-46.3) RDW Coefficient of Variation 13.1 % (11.5-14.5) Immature Granulocyte % (Auto) 0.3 % Immature Granulocyte # (Auto) 0.04 K/uL (0.00-0.02) Anion Gap 8.0 mmol/L (3-11) Est Creatinine Clear Calc Drug Dose 92.5 ml/min Estimated GFR () 90.1 Estimated GFR (Non- 77.7 BUN/Creatinine Ratio 20.0 (10-20) Calcium Level 8.6 mg/dl (8.5-10.1) Total Bilirubin 0.3 mg/dl (0.2-1) Aspartate Amino Transf (AST/SGOT) 26 U/L (15-37) Alanine Aminotransferase (ALT/SGPT) 35 U/L (12-78) Alkaline Phosphatase 101 U/L (45-117) Total Protein 7.3 gm/dl (6.4-8.2) Albumin 3.7 gm/dl (3.4-5.0) Globulin 3.6 gm/dl (2.5-4.0) Albumin/Globulin Ratio 1.0 (0.9-2) Lipase 337 U/L (73-393) Urine Color YELLOW Urine Appearance CLEAR (CLEAR) Urine pH 5.5 (4.5-7.5) Urine Specific [place] 1.028 (1.000-1.030) Urine Protein NEG (NEG) Urine Glucose (UA) NEG (NEG) Urine Ketones NEG (NEG) Urine Occult Blood NEG (NEG) Urine Nitrite NEG (NEG) Urine Bilirubin NEG (NEG) Urine Urobilinogen NEG (NEG) Urine Leukocyte Esterase NEG (NEG) Laboratory results reviewed by me. Medications Administered Medications (Trade) Dose Ordered Sig/Silvana Route Start Time Stop Time Status Last Admin Dose Admin Ondansetron HCl (Zofran Inj) 4 mg NOW STAT IV 05/28/17 19:16 05/28/17 19:18 DC 05/28/17 19:38 4 MG Morphine Sulfate (MoRPHine SULFATE INJ) 4 mg Q30M PRN IV 05/28/17 19:30 05/28/17 23:27 DC 05/28/17 19:38 4 MG Ketorolac Tromethamine (Toradol Inj) 30 mg NOW STAT IV 05/28/17 19:16 05/28/17 19:18 DC 05/28/17 19:38 30 MG Metronidazole (Flagyl Tab) 500 mg NOW STAT PO 05/28/17 22:43 05/28/17 22:44 DC 05/28/17 22:43 500 MG ED Course 191: The patient was evaluated in room C01B. A complete history and physical exam was performed. 1915: Ordered Toradol Injection 30 mg Iv, Zofran Injection 4 mg IV. 1929: Ordered Morphine Sulfate 4 mg IV. 2237: Reevaluated the patient. Discussed results and discharge instructions: She verbalized understanding and agreement. The patient is ready for discharge. Medical Decision The patient is a 56 year old male who presents to the Emergency Room with complaints of waxing/waning lower abdominal pain that started two days ago. Differential diagnoses considered include diverticulitis or appendicitis, diverticular abscess, UTI, dehydration, electrolyte imbalance, viral illness, hernia, and colitis. There is a mild leukocytosis which could be consistent with infection. No concerning anemia. No significant electrolyte abnormality, kidney failure or hepatitis. There is no pancreatitis. Urinalysis does not show evidence for infection. Abdominal and pelvis CT shows diverticulitis, no abscess. On exam, there was no peritonitis. The patient received IV morphine, IV Zofran, IV Toradol and IV saline. He was given oral Flagyl. The patient is not febrile or toxic. He does have a history of diverticulitis and appears to have the same diagnosis again today. He already is on Cipro, I will add Flagyl. He was given a few oxycodone to use for breakthrough pain. He will follow with GI or his family doctor this week and return if worsening. Medication Reconcilliation Current Medication List: was personally reviewed by me Blood Pressure Screening Patient's blood pressure: Elevated blood pressure Blood pressure disposition: Referred to PCP Impression Primary Impression: Acute diverticulitis Scribe Attestation The scribe's documentation has been prepared under my direction and personally reviewed by me in its entirety. I confirm that the note above accurately reflects all work, treatment, procedures, and medical decision making performed by me. Departure Information Dispostion Home / Self-Care Prescriptions Metronidazole (FLAGYL) 500 Mg Tab 500 MG PO TID for 10 Days, #30 TAB Prov: Ryan Yanez M.D. 05/28/17 Referrals Alphonso Cherry MD (PCP) Forms Call Back Authorization, HOME CARE DOCUMENTATION FORM, IMPORTANT VISIT INFORMATION Patient Instructions My [facility] Additional Instructions cipro as before add flagyl 3x per day for 10 days may use oxy ir 1 tab as needed for severe pain see porsha santos or GI this week for a recheck return for worsening pain, vomiting or fever
[2017-05-28 19:49] LABS: ALBUMIN 3.7 gm/dl (3.4-5.0); CALCIUM 8.6 mg/dl (8.5-10.1); CREATININE 1.07 mg/dl (0.60-1.40); POTASSIUM 3.8 mmol/L (3.5-5.1)
[2017-05-28 19:52] LABS: TOTAL PROTEIN 7.3 gm/dl (6.4-8.2)
[2017-05-28] MEDS ORDERED: ONDA4TAB10 SL (20:02)
[2017-05-28] MEDS ORDERED: CIPR1TAB10 PO (20:04)
[2017-05-28] MEDS ORDERED: OPTIRAY 320 IV PRN (20:15)
--- NOTE | 2017-05-28 22:10 | DIAGNOSTIC IMAGING REPORT ---
ABD/PELVIS IV AND ORAL CONT CLINICAL HISTORY: 56 years-old Male presenting with ABDOMINAL PAIN/GI--?APPY--GIVE PO AND IV CONTRAST, mid abdominal pain, bloating. TECHNIQUE: Multidetector CT of the abdomen and pelvis was performed after the administration of oral and intravenous contrast. IV contrast: 94 mL of Optiray 320. A dose lowering technique was used consistent with the principles of ALARA (as low as reasonably achievable). COMPARISON: 09/08/2016. CT DOSE (mGy.cm): The estimated cumulative dose is 737.95 mGy.cm. 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 Cholecystectomy clips. Lung bases: Minimal basilar opacities, likely atelectasis. Normal heart size. No pericardial or pleural effusion. Liver: Normal morphology. Few scattered well-defined hypodensities in the liver likely hepatic cysts or hamartomas. Patent hepatic vasculature. Biliary: Mild biliary ductal prominence likely a reservoir effect in the post cholecystectomy state. Gallbladder surgically absent. Pancreas: Normal. Spleen: Normal. Adrenal glands: Normal. Kidneys and ureters: Multiple well-defined hypodensities in the kidneys bilaterally, the largest on the left, likely simple cysts. Multiple bilateral nonobstructing renal calculi, the largest on the right measuring 6 mm and on the left measuring 4 mm. No hydronephrosis. Mild nonspecific perinephric fat stranding. Normal ureters. Bladder: Normal. Pelvic organs: Prostate and seminal vesicles normal. Bowel: Diverticulosis and wall thickening of the distal sigmoid colon. Minimal associated pericolonic fat stranding at this level immediately superior to the bladder dome. No bowel obstruction. Stomach mildly distended with contrast. Peritoneal cavity: No free fluid or intraperitoneal gas. No focal fluid collection to suggest abscess. No evidence of chapis perforation. Lymph nodes: No enlarged lymph nodes in the abdomen or pelvis. Vasculature: Atherosclerosis of the normal caliber abdominal aorta. IVC patent. Abdominal wall: Small fat-containing umbilical hernia. Musculoskeletal: Normal. IMPRESSION: 1. Findings consistent with acute uncomplicated diverticulitis in the distal sigmoid colon and immediately superior to the bladder dome. No evidence of abscess or chapis perforation. 2. Bilateral nephrolithiasis. No hydronephrosis. Electronically signed by: Giovanny Parmar M.D. 05/28/2017 10:09 PM Dictated Date/Time: 05/28/2017 10:03 PM
[2017-05-28] MEDS ORDERED: METRONIDAZOLE 250 MG TAB PO STA (22:43)
[2017-05-28] MEDS ORDERED: OXYCODONE IR HOME PACK PO ONE (22:45)
[2017-05-28] MEDS ORDERED: METR-162 PO (22:46)
[2017-05-28 22:54] VITALS: BP 120/72; PULSE 84; O2SAT 98
== END 2017-05-28 22:54 | disposition home or self-care (01) ==
LOC: C.EDB 18:59 → C.EDC 22:54
DX: K57.32 Diverticulitis of large intestine without perforation or abscess without bleeding (principal); F32.9 Major depressive disorder, single episode, unspecified; K57.90 Diverticulosis of intestine, part unspecified, without perforation or abscess without bleeding; K21.9 Gastro-esophageal reflux disease without esophagitis; E78.00 Pure hypercholesterolemia, unspecified; I10 Essential (primary) hypertension; E83.51 Hypocalcemia; E87.6 Hypokalemia; E83.42 Hypomagnesemia; K58.9 Irritable bowel syndrome, unspecified; Z87.442 Personal history of urinary calculi; K85.90 Acute pancreatitis without necrosis or infection, unspecified; L40.9 Psoriasis, unspecified; Z83.3 Family history of diabetes mellitus; Z84.1 Family history of disorders of kidney and ureter; Z82.49 Family history of ischemic heart disease and other diseases of the circulatory system; F17.210 Nicotine dependence, cigarettes, uncomplicated; Z79.82 Long term (current) use of aspirin; Z79.899 Other long term (current) drug therapy; Z88.2 Allergy status to sulfonamides

== ENCOUNTER 2023-05-26 11:12 | Inpatient (IN) ==
--- NOTE | 2023-05-19 08:48 | Anesthesiology Consultation ---
Date of Service May 19, 2023 Assessment & Plan (1) Encounter for pre-operative examination: Plan - check BSG and BMP STAT am DOS. Fluid orders to anesthesiologist review of BMP am DOS. - hyperkalemia: Case discussed in detail with Dr. Wu who advised repeat BMP am DOS and patient otherwise acceptable to proceed as planned. - will request most recent PCP office note, Dr. Moore [facility]. - pulmonology office note 04/28/23 [place]: "...Dyspnea: Dyspnea at this time is minimal. Patient not on any maintenance inhalers. Prior PFTs without evidence of obstructive or restrictive lung disease. Emphysema lung: No signs of obstruction seen on PFTs. Sleep apnea: Patient following up with sleep medicine clinic. Compliant with CPAP..." - cardiology office note 12/02/22: "...BP occasionally higher, is using cpap. hasn't needed mag infusion for about 6-7 weeks...occasional orthostatic symptoms...denies chest pain or chest pressure...no significant shortness of breath...lightheadedness is much improved...blood pressure today is very well controlled...does have mild orthostatic symptoms which if anything are better than they previously were...denies anginal symptoms...negative cardiac catheterization in 2019 and a negative stress test in 03/2022..." [f/u in 6 months]. - Per family intervention specialist on 05/18/23: No known infectious disease contacts, current infectious disease symptoms in past 10 days or COVID positive test result in the past 30 days. Chart Review Chart Review: Pending: Refer to Additional Notes / Consult section and Patient NOT seen in Pre Admission Testing History Surgery Operation Date: 05/26/23 11:55 Proposed Procedures p Laparoscopic Sigmoid Colectomy - Sunday Calle, Height/Weight Height: 5 ft 10 in Weight: 103.419 kg Allergies Allergy/AdvReac Type Severity Reaction Status Date / Time Sulfa (Sulfonamide Allergy Unknown CHILDHOOD Verified 05/18/23 11:01 Antibiotics) ALLERGY/not sure reaction prednisone AdvReac Unknown AGITATED/SW Verified 05/18/23 11:01 EATY/JITTER Y/NAUSEATED Medications Home Medications Medication Instructions Recorded Confirmed Last Taken albuterol sulfate 90 mcg/actuation 2 puff inhalation Q4H PRN 1005/18/23 10/07/19 aerosol inhaler Shortness Of Breath alprazolam 0.25 mg tablet 0.25 mg PO TID PRN Anxiety 02/12/18 05/18/23 10/07/19 amlodipine 10 mg tablet 10 mg PO QAM 02/12/18 05/18/23 02/27/23 aspirin 81 mg tablet,delayed 81 mg PO QAM 02/12/18 05/18/23 02/27/23 release (Jimy Low Dose Aspirin) bupropion HCl 150 mg 24 hr tablet, 150 mg PO QPM 02/12/18 05/18/23 02/26/23 extended release (Wellbutrin XL) clobetasol 0.025 % topical cream 1 applic topical BID PRN Dry Skin 02/12/18 05/18/23 02/14/18 lidocaine 5 % topical cream 1 applic topical BID PRN Dry Skin 02/12/18 05/18/23 02/14/18 omeprazole 20 mg capsule,delayed 20 mg PO QAM 02/12/18 05/18/23 02/27/23 release tamsulosin 0.4 mg capsule 0.4 mg PO HS 02/12/18 05/18/23 02/26/23 dicyclomine 10 mg capsule 10 mg PO TID #15 caps 03/22/18 05/18/23 02/27/23 13:00 fluoxetine 20 mg capsule 40 mg PO BID 03/22/18 05/18/23 02/27/23 ondansetron 4 mg disintegrating 4 mg PO BID PRN Nausea 03/22/18 05/18/23 10/08/19 tablet magnesium chloride 64 mg 400 mg PO TID 03/21/19 05/18/23 02/27/23 13:00 (magnesium chloride) tablet,delayed release fenofibrate nanocrystallized 48 mg 48 mg PO QPM 09/21/19 05/18/23 02/26/23 tablet (Tricor) sumatriptan succinate 50 mg tablet 50 mg PO DIRECTED PRN Migraine 09/21/19 05/18/23 Unknown (Imitrex) Headache vitamin B complex 1 tab PO QAM 09/21/19 05/18/23 02/27/23 isosorbide mononitrate 30 mg 30 mg PO BID 02/12/20 05/18/23 02/27/23 tablet,extended release 24 hr rosuvastatin 40 mg tablet (Crestor) 40 mg PO HS 02/12/20 05/18/23 02/27/23 secukinumab 150 mg/mL subcutaneous 300 mg subcut UD 03/19/20 05/18/23 Unknown pen injector (Cosentyx Pen) gabapentin 100 mg capsule 400 mg PO TID 05/07/20 05/18/23 02/27/23 13:00 cholecalciferol (vitamin D3) 25 2,000 unit PO QAM 05/23/20 05/18/23 02/27/23 mcg (1,000 unit) capsule lisinopril 20 mg tablet 20 mg PO DAILY #30 tabs 06/10/20 05/18/23 02/27/23 metoprolol succinate 50 mg 50 mg PO QPM 11/20/20 05/18/23 02/27/23 tablet,extended release 24 hr (Toprol XL) coenzyme Q10 200 mg capsule (Co 200 mg PO QAM 01/06/21 05/18/23 02/27/23 Q-10) hydralazine 25 mg tablet 25 mg PO BID 08/05/21 05/18/23 02/27/23 08:00 amiloride 5 mg tablet 2.5 mg (1/2 x 5 mg) PO DAILY #45 01/27/23 05/18/23 02/27/23 tabs ciprofloxacin HCl 500 mg tablet 500 mg PO BID #60 tabs 04/20/23 05/18/23 Unknown metronidazole 500 mg tablet 500 mg PO TID #90 tabs 04/20/23 05/18/23 Unknown Magnesium Infusions 1 dose UD PRN low magensium levels 05/18/23 05/18/23 05/12/23 amadwq-[id number]-xzzvbpv 1 cap PO TID 05/18/23 05/18/23 Unknown 10,000-32,000-42,000 unit capsule,delayed rel (Zenpep) magnesium L-lactate 84 mg 84 mg PO QAM 05/18/23 05/18/23 Unknown tablet,extended release metformin 1,000 mg tablet 1,000 mg PO BID 05/18/23 05/18/23 Unknown methocarbamol 500 mg tablet 500 mg PO UD PRN muscle spasms 05/18/23 05/18/23 Unknown vitamin A 2,400 mcg capsule 2,400 mcg PO QAM 05/18/23 05/18/23 Unknown Past Medical History Medical History (Updated 05/19/23 @ 08:47 by Talia Larsen PA-C) Anemia hx Asthma controlled/last use a few weeks ago x1 use. Denies recent flares. Clostridium difficile infection hx Diverticulitis Enlarged prostate History of colon polyps none on most recent colonoscopy. Hyperlipidemia Hypertension Hypomagnesemia follows with [place] nephrology Irritable bowel disease Kidney stones current/no problems with. Migraines JAY (obstructive sleep apnea) CPAP Overactive bladder Pancreatitis HX Personal history of nicotine dependence Potassium disorder h/o hyperkalemia and hypokalemia-follows with [place] nephrology with notation of hypokalemia 05/04/23 office note 5.3 04/28/23 Pre-diabetes on metformin Prinzmetal angina follows with [facility] cardio, stable per 12/02/22 note Psoriasis (a type of skin inflammation) Torn rotator cuff left Past Family History Family History Mother Cancer Diabetes Grandmother Colorectal cancer Brother Clotting disorder Diabetes Family/Other Hypertension Other Heart disease Past Surgical History Surgical History H/O colonoscopy (08/23/22) H/O esophagogastroduodenoscopy (08/23/22) Dr. Cadena H/O hemorrhoidectomy H/O hernia repair History of cardiac cath yrs ago/Princess/no stent(s). Highest blockage around 50 %. Hx of cholecystectomy Social History Smoking Status: Former smoker Do You Dip or Chew Tobacco: No Smoking End Date: 2 yr ago Alcohol type: beer alcohol intake frequency: other Alcohol Intake Frequency Comment: social use/none for past few months substance use type: marijuana Substance Use Type Other:: smoke pot occassionally - advised Last Used Substance Other:: 2 weeks ago Lab Results Anesthesia Preop Results Results Anesthesia Widget: WBC 5.37 K/ul (4.8-10.8) 04/28/23 Hgb 12.0 g/dl (14.0-18.0) L 04/28/23 Hct 37.4 % (42.0-52.0) L 04/28/23 Plt 207 K/uL (130-400) 04/28/23 Na 131 mmol/L (136-145) L 04/28/23 K 5.3 mmol/L (3.5-5.1) H 04/28/23 Cl 102 mmol/L (98-107) 04/28/23 CO2 22 mmol/L (21-32) 04/28/23 BUN 39 mg/dl (6-23) H 04/28/23 Creat 1.42 mg/dl (0.6-1.4) H 04/28/23 Glucose Level 93 mg/dl (70-99(Fasting)) 04/28/23 Testing Laboratory Results 05/11/23 M.5 Electrocardiogram Date: 04/28/23 NSR, rate 65 bpm Echocardiogram Date: 02/04/20 EF 60% Basal to mid inferolateral and mid to distal anterolateral mayo are hypokinetic when compared to the opposite mayo No LVH Dilated RC Mildly dilated atria Lipomatous atrial septum, appears intact No significant valvular pathology Stress Test Date: 03/16/22 Exercise METS 7 MPHR 78% Negative for ischemia EF 65% Mildly dilated LV No LV regional wall motion abnormalities Pulmonary Function Test Date: 06/03/22 No obstruction per provider note. Other Testing Low dose lung CT 04/13/23 No suspicious pulmonary nodules. No change in several tiny pulmonary nodules since initial CT of March 31, 2010. These are benign given stability. Lung RADS Category: 1 - Negative - No nodules and definitely benign nodules. Continue annual screening. Abdomen pelvis CT 02/27/23 1. Acute sigmoid diverticulitis. 2. A 3 mm stone either within or just beyond the right ureterovesical junction. However, no right-sided hydronephrosis. 3. Bilateral nephrolithiasis. 4. Additional findings as described above.
[~2023-05-26 11:12] MED LIST changes: -ADAL1KIT INJ; -ALPR0.25 PO; -AMLO10TA2 PO; -APR25 PO; -ASPI81TA21 PO; -BUPRTAB PO; -CHOL100010 PO; +DEXAMETHASONE SOD INJ 4 MG/ML VIAL ONE; -DICY10CA55 PO; -FLM4 PO; -FLUO20CA35 PO; -FLUT0.15 NAE; -FLUT1INH INH; -LIDO4CRE10 TOP; +LIDOCAINE 2% 2 ML VIAL/AMP(20MG/ML) INFIL ONE; -LISI40TA PO; -LPT/40 PO; -METO50TA16 PO; +MIDAZOLAM HCL 1 MG/ML 2ML VIAL ONE; -NF34 TOP; -OMEGCAP2 PO; -OMEP20CA9 PO; -ONDA4TAB10 SL; +ONDANSETRON INJ 2 MG/ML 2 ML VIAL ONE; -OXGN; -PANC1CAP21 PO; -POT1TAB PO; +PROPOFOL IV EMULSION 10 MG/ML 20 ML VIAL IV ONE; +ROCURONIUM BROMIDE 10 MG/ML 5 ML VIAL IV ONE; -SLWMEC PO; -VITA1TAB6 PO; -VNTHFA/IN INH; +fentaNYL citrate PF 100 MCG/2 ML VIAL ONE
--- NOTE | 2023-05-26 11:54 | History & Physical Report ---
Date of Service May 26, 2023 Assessment & Plan (1) Diverticulitis: Plan: discussed his options and risks. questions answered. will proceed today with laparoscopic sigmoid colectomy. History of Present Illness Primary Care Provider: Yuri Moore MD pt here for lap sigmoid resection for diverticulitis. There is been no changes to his health status since I seen him last in the office. Allergies Allergy/AdvReac Type Severity Reaction Status Date / Time Sulfa (Sulfonamide Allergy Unknown CHILDHOOD Verified 05/26/23 11:39 Antibiotics) ALLERGY/not sure reaction prednisone AdvReac Unknown AGITATED/SW Verified 05/26/23 11:39 EATY/JITTER Y/NAUSEATED Home Medications Medication Instructions Recorded Confirmed Type albuterol sulfate 90 mcg/actuation 2 puff inhalation Q4H PRN 02/12/18 05/26/23 History aerosol inhaler Shortness Of Breath alprazolam 0.25 mg tablet 0.25 mg PO TID PRN Anxiety 02/12/18 05/26/23 History amlodipine 10 mg tablet 10 mg PO QAM 02/12/18 05/26/23 History aspirin 81 mg tablet,delayed 81 mg PO QAM 02/12/18 05/26/23 History release (Jimy Low Dose Aspirin) bupropion HCl 150 mg 24 hr tablet, 150 mg PO QPM 02/12/18 05/26/23 History extended release (Wellbutrin XL) clobetasol 0.025 % topical cream 1 applic topical BID PRN Dry Skin 02/12/18 05/26/23 History lidocaine 5 % topical cream 1 applic topical BID PRN Dry Skin 02/12/18 05/26/23 History omeprazole 20 mg capsule,delayed 20 mg PO QAM 02/12/18 05/26/23 History release tamsulosin 0.4 mg capsule 0.4 mg PO HS 02/12/18 05/26/23 History dicyclomine 10 mg capsule 10 mg PO TID #15 caps 03/22/18 05/26/23 Rx fluoxetine 20 mg capsule 40 mg PO BID 03/22/18 05/26/23 History ondansetron 4 mg disintegrating 4 mg PO BID PRN Nausea 03/22/18 05/26/23 History tablet magnesium chloride 64 mg 400 mg PO TID 03/21/19 05/26/23 History (magnesium chloride) tablet,delayed release fenofibrate nanocrystallized 48 mg 48 mg PO QPM 09/21/19 05/26/23 History tablet (Tricor) sumatriptan succinate 50 mg tablet 50 mg PO DIRECTED PRN Migraine 09/21/19 05/26/23 History (Imitrex) Headache vitamin B complex 1 tab PO QAM 09/21/19 05/26/23 History isosorbide mononitrate 30 mg 30 mg PO BID 02/12/20 05/26/23 History tablet,extended release 24 hr rosuvastatin 40 mg tablet (Crestor) 40 mg PO HS 02/12/20 05/26/23 History secukinumab 150 mg/mL subcutaneous 300 mg subcut UD 03/19/20 05/26/23 History pen injector (Cosentyx Pen) gabapentin 100 mg capsule 400 mg PO TID 05/07/20 05/26/23 History cholecalciferol (vitamin D3) 25 2,000 unit PO QAM 05/23/20 05/26/23 History mcg (1,000 unit) capsule lisinopril 20 mg tablet 20 mg PO DAILY #30 tabs 06/10/20 05/26/23 Rx metoprolol succinate 50 mg 50 mg PO QPM 11/20/20 05/26/23 History tablet,extended release 24 hr (Toprol XL) coenzyme Q10 200 mg capsule (Co 200 mg PO QAM 01/06/21 05/26/23 History Q-10) hydralazine 25 mg tablet 25 mg PO BID 08/05/21 05/26/23 History ciprofloxacin HCl 500 mg tablet 500 mg PO BID #60 tabs 04/20/23 05/26/23 Rx metronidazole 500 mg tablet 500 mg PO TID #90 tabs 04/20/23 05/26/23 Rx Magnesium Infusions 1 dose UD PRN low magensium levels 05/18/23 05/26/23 History thenuv-rndnymxw-grqxnpc 1 cap PO TID 05/18/23 05/26/23 History 10,000-32,000-42,000 unit capsule,delayed rel (Zenpep) magnesium L-lactate 84 mg 84 mg PO QAM 05/18/23 05/26/23 History tablet,extended release metformin 1,000 mg tablet 1,000 mg PO BID 05/18/23 05/26/23 History methocarbamol 500 mg tablet 500 mg PO UD PRN muscle spasms 05/18/23 05/26/23 History vitamin A 2,400 mcg capsule 2,400 mcg PO QAM 05/18/23 05/26/23 History amiloride 5 mg tablet 2.5 mg (1/2 x 5 mg) PO DAILY #45 05/26/23 05/26/23 Rx tabs Past Med/Surg History Medical History Prinzmetal angina follows with [facility] cardio, stable per 12/02/22 note Potassium disorder h/o hyperkalemia and hypokalemia-follows with [place] nephrology with notation of hypokalemia 05/04/23 office note 5.3 04/28/23 Clostridium difficile infection hx Pre-diabetes on metformin History of colon polyps none on most recent colonoscopy. Hyperlipidemia Enlarged prostate Overactive bladder Psoriasis (a type of skin inflammation) Torn rotator cuff left Kidney stones current/no problems with. Migraines Anemia hx JAY (obstructive sleep apnea) CPAP Personal history of nicotine dependence Diverticulitis Hypertension Asthma controlled/last use a few weeks ago x1 use. Denies recent flares. Irritable bowel disease Pancreatitis HX Hypomagnesemia follows with [place] neph[facility] Surgical History History of cardiac cath yrs ago/Princess/no stent(s). Highest blockage around 50 %. H/O esophagogastroduodenoscopy (08/23/22) Dr. Cadena H/O colonoscopy (08/23/22) Hx of cholecystectomy H/O hernia repair H/O hemorrhoidectomy Family History Mother Cancer Diabetes Grandmother Colorectal cancer Brother Clotting disorder Diabetes Family/Other Hypertension Other Heart disease Social History (Updated 01/10/23 @ 14:24 by Purnima Dobbins RN) Smoking Status: Former smoker Tobacco Type: Cigarettes Age Started Using Tobacco: 17; Age Quit Using Tobacco: 61; packs per day: 1; Smoking End Date: 2 yr ago; Second Hand Exposure: Yes; Do You Dip or Chew Tobacco: No; Preferred Language: Nepalese Communication Ability: Effective Cad Cam Programmer Required: No Beliefs That Will Affect Care: None Current Living Situation: Alone Other Information That Helps Us Care for You: No Feels Safe at Home: Yes Assistive Devices: CPAP and Glasses Review of Systems All systems reviewed & are unremarkable except as noted in HPI & below Physical Exam Constitutional: WD/WN, vitals as above no acute distress and not ill appearing Eyes: PERRL, conjunctivae normal, anicteric sclerae EOM intact bilaterally ENMT: external ear and nose normal, oropharynx normal Ears: no hearing impairment Neck: trachea midline, no thyromegaly Respiratory: normal respiratory effort; no respiratory distress and does not use accessory muscles Cardiovascular: Rate/Rhythm: regular rate and regular rhythm Gastrointestinal (Abdomen): normal bowel sounds, soft, nontender, no hepatosplenomegaly Skin: no rashes, warm and dry Psychiatric: Orientation: alert, oriented x 3 and cooperative
[2023-05-26] MEDS: HEPARIN SOD 5,000 UNIT/0.5 ML VIAL SQ SCH (12:08)
[2023-05-26] MEDS: LACTATED RINGER'S 1,000 ML IV SCH ×2 (12:09→17:13)
[2023-05-26 12:13] LABS: BUN Creatinine Ratio 15.9 (10-20); Calcium 9.5 mg/dl (8.6-10.3); Creatinine Clr Calc Pharmacy 80.9 ml/min; Est GFR (African American) 80.9 ml/min; Est GFR (Non-African American) 69.8 ml/min; Potassium 4.1 mmol/L (3.5-5.1)
[2023-05-26] MEDS: CIPROFLOXACIN / D5W 400 MG/200 ML BAG IV SCH (12:29)
[2023-05-26] MEDS ORDERED: ONDANSETRON INJ 2 MG/ML 2 ML VIAL IV PRN ×2 (12:50→17:02)
[2023-05-26] MEDS ORDERED: ATROPINE SULFATE 0.1 MG/ML 10ML SYR IV PRN (12:50)
[2023-05-26] MEDS ORDERED: ePHEDrine sulfate 50 MG/ML AMP IV PRN (12:50)
[2023-05-26] MEDS ORDERED: KETAMINE HCL 10MG/ML SYR ONE (13:37)
[2023-05-26] MEDS ORDERED: ACETAMINOPHEN 1000 MG/100 ML IV IV ONE (13:37)
[2023-05-26] MEDS: metroNIDAZOLE 500 MG/100 ML BAG IV SCH ×2 (13:42→22:58)
[2023-05-26] MEDS ORDERED: ALBUTEROL HFA 8 GM INHALER INH ONE (14:14)
[2023-05-26] MEDS ORDERED: HYDROmorphone INJ 2 MG/ML SYR/VIAL ONE (14:36)
[2023-05-26] MEDS ORDERED: ROCURONIUM BROMIDE 10 MG/ML 5 ML VIAL IV ONE (14:55)
[2023-05-26] MEDS ORDERED: SUGAMMADEX SODIUM 200 MG/2 ML VIAL IV ONE ×2 (14:57→14:59)
[2023-05-26] MEDS: BUPIVACAINE/EPINEPHRINE 0.5% MPF 1:200,000 30 ML VIAL ONE (15:47)
--- NOTE | 2023-05-26 16:04 | Operative Report ---
PG Post Operative Report Pre & Post Diagnosis Operation Date: 05/26/23 13:10 Pre-Op Diagnosis: Acute Diverticulitis Post-Op Diagnosis: Acute Diverticulitis I identified the patient and participated in the time-out.: Yes Procedure Operation Date: 05/26/23 13:10 Actual Procedures p Laparoscopic Sigmoid Colectomy(Not Applicable) - Sunday Calle DO Surgeon Sunday Calle DO Wet End Supervisor crissy lloyd Estimated Blood Loss 300 Findings Consistent with Post-Op Diagnosis Specimens sigmoid colon Description of Procedure After informed consent was obtained the patient was taken to the operating room and placed in supine position. After successful intubation a Pickard catheter was placed. The right arm was tucked and the abdomen was shaved and sterilely prepped and draped in usual fashion. A periumbilical incision was made with an 11 blade scalpel. Cautery was used to carry this down to the fascia. Two #0 Vicryl stay sutures were placed. Peritoneum was then entered with blunt finger penetration and a finger sweep was performed. A 12 mm Lott trocar was placed and the abdomen was insufflated to 18 mmHg. Laparoscope was inserted and the abdomen was examined in 360 degrees. No gross abnormalities were identified. A right lower quadrant 12 mm port , a right mid abdominal 5 mm port and a left lower quadrant 5 mm port were all placed under direct visualization. The patient was placed in a Trendellenberg position and slightly airplaned to the right . The sigmoid colon did have rather extensive diverticulosis. There was no evidence of acute active infection. There was also a rather redundant sigmoid colon. I began by mobilizing the colon along the white line of Toldt using the harmonic scalpel. I carried this essentially up to the spleen superiorly and to the peritoneal reflection distally. Next, I created a window in the mesentery at the recto-sigmoid junction. I used a 60 mm purple cartridege BLAKE stapler to transect the colon. The sonocision was used to take down the mesentery proximally until we reached normal appearing bowel. Next, I opened the LLQ trocar incision for several cm medially and laterally including fascia. Next I pulled the colon out through this incision. I did towel off the incision. A bowel clamp was placed and the bowel divided using scissors. The specimen was passed off. I used a 2-0 silk to create a hand sewn purse string. Next I used sizers to estimate the size of the lumen to be 28 mm. A 28 mm anvil was placed into the lumen and the pursestring used to secure it. I trimmed some additional fat around the anvil and placed it back into the abdominal cavity. At this point we changed our gloves. I closed the fascia using #1 PDS in running fashion. We then re-insufflated the abdomen. I was able to lay it over the pelvic brim without difficulty and were able to do the anastomosis with no tension. We used sizers to come in through the rectal stump. We followed this with the handle of the circular stapler. The spike was deployed anterior to the staple line and we connected the anvil to the handle. They were secured together and fired creating a circular end and anastomosis. Both donuts were intact. Using a rigid sigmoidoscope I insufflated the anastomosis under water and it was completely airtight. I thoroughly irrigated the pelvis. There was adequate hemostasis. No other abnormalities were noted. A 10 flat Tomy- Dillon drain was placed in the pelvis and brought out through the right lower quadrant incision and secured to the skin using 0 Vicryl. The fascia of the camera port was closed using 0 Vicryl in a [id number] fashion. All wounds were thoroughly irrigated. The larger incision was closed with 3-0 Vicryl and 4-0 Monocryl. The smaller incisions were closed using 4 Monocryl. Marcaine with epinephrine was injected around the incisions for postoperative analgesia. Dermabond glue benzoin Steri-Strips gauze and tape were used for the incisions. The patient was awakened extubated and transferred to recovery in stable condition. My nurse practitioner was present for the entire case was instrumental in providing exposure running the camera assisting with the resection anastomosis and dressing placement. I attest to the content of the Intraoperative Record and any orders documented therein. Any exceptions are noted below.
[2023-05-26] MEDS: fentaNYL citrate PF 100 MCG/2 ML VIAL IV PRN (16:23)
--- NOTE | 2023-05-26 16:50 | Anesthesiology Progress Note ---
Date of Service May 26, 2023 Anesthesia Post Procedure Vital Signs Vital Signs: Temp Pulse Pulse Resp BP Pulse Ox O2 Del Method 05/26/23 16:40 90 14 151/63 H 92 Nasal Cannula 05/26/23 16:30 37.1 C 93 H 10 L 164/78 H 92 Oxymask 05/26/23 16:20 91 H 12 152/80 H 94 Oxymask 05/26/23 16:10 92 H 18 153/79 H 94 Oxymask 05/26/23 16:03 36.1 C L 97 H 20 146/86 H 99 Oxymask 05/26/23 11:47 Room Air, CPAP 05/26/23 11:47 37.1 C 70 18 173/90 H 93 Room Air, CPAP O2 Flow Rate 05/26/23 16:40 3 05/26/23 16:30 4 05/26/23 16:20 6 05/26/23 16:10 8 05/26/23 16:03 10 05/26/23 11:47 05/26/23 11:47 Pain Intensity Abdomen: Pain Intensity: 4 Transfer of Care Handoff Completed per policy Notes Mental Status: alert / awake / arousable and participated in evaluation Patient Amnestic to Procedure: Yes Nausea / Vomiting: adequately controlled Pain: adequately controlled Airway Patency, RR, SpO2: stable & adequate BP & HR: stable & adequate Hydration State: stable & adequate Anesthetic Complications: no major complications apparent and Pt Satisfied with anesthetic care
[2023-05-26] MEDS ORDERED: CARBOHYDRATES FOR HYPOGLYCEMIA PO PRN (17:02)
[2023-05-26] MEDS ORDERED: GLUCOSE 10 TAB/TUBE PO PRN (17:02)
[2023-05-26] MEDS ORDERED: PHARMACY GLYCEMIC MGMT CONSULT PRN (17:02)
[2023-05-26] MEDS ORDERED: GLUCOSE 40% GEL 15 GM TUBE PO PRN (17:02)
[2023-05-26] MEDS ORDERED: DEXTROSE 50% 50 ML SYRINGE IV PRN (17:02)
[2023-05-26] MEDS ORDERED: ALBUTEROL HFA 8 GM INHALER INH PRN (17:02)
[2023-05-26] MEDS ORDERED: GLUCAGON FOR INJ 1 MG VIAL SQ PRN (17:02)
[2023-05-26] MEDS ORDERED: HYDROmorphone INJ 0.5 MG/0.5 ML SYR IV PRN ×2 (17:02)
[2023-05-26] MEDS ORDERED: Nursing to Pharmacy Communication SCH (17:15)
[2023-05-26] MEDS: oxyCODONE HCL IR 5 MG TAB (IMMEDIATE RELEASE) PO PRN (17:22)
[2023-05-26] MEDS: INSULIN ASPART PER UNIT CHARGE SC SCH ×2 (17:27→17:29)
--- NOTE | 2023-05-26 18:41 | Hospitalist Consultation ---
Date of Consultation May 26, 2023 Assessment & Plan (1) Anemia: (2) Asthma: (3) Anxiety and depression: (4) CAD (coronary artery disease): (5) HTN (hypertension): (6) High cholesterol: (7) GERD (gastroesophageal reflux disease): (8) Emphysema lung: (9) Chronic pancreatitis: (10) Sleep apnea: (11) S/P colectomy: Plan #S/p colectomy Pain management per surgery #Anemia No CBC this admission Baseline 12-12.5 f/u CBC #Anxiety/Depression Chronic xanax .25mg TID PRN bupropion fluoxetine #CAD ASA imdur metoprolol #HTN amlodipine lisinopril hydralazine #HLD fenofibrate rosuvastatin #GERD omeprazole #Emphysema Albuterol PRN #Chronic Pancreatitis Pancreatic enzyme replacement #T2DM metformin held ISS #BPH flomax FENGI: NPO Code status: Full DVT prophylaxis: SCDs Isolation: none Disposition: med/surg History of Present Illness Reason for Consultation: Medical Management Requesting Physician: Mari HERNANEDZ Attending Physician: Sunday Calle, DO History of Present Illness 62 yo male PMHx Anemia, anxiety/depression, HTN, GERD, chronic back pain, fibromyalgia, asthma, COPD, T2DM, HLD, sleep apnea, chronic pancreatitis admitted for colectomy by Dr. Calle. Medicine consulted for managment of medical conditions. Patient seen and evaluated at bedside. NAD, Pain well controlled. Patient denies CP, SOB, nausea, vomiting, lightheadedness, dizziness, and diarrhea. Labs: BNP ordered by surgery unremarkable VSS Allergies Allergy/AdvReac Type Severity Reaction Status Date / Time Sulfa (Sulfonamide Allergy Unknown CHILDHOOD Verified 05/26/23 11:39 Antibiotics) ALLERGY/not sure reaction prednisone AdvReac Unknown AGITATED/SW Verified 05/26/23 11:39 EATY/JITTER Y/NAUSEATED Home Medications Medication Instructions Recorded Confirmed Type albuterol sulfate 90 mcg/actuation 2 puff inhalation Q4H PRN 02/12/18 05/26/23 History aerosol inhaler Shortness Of Breath alprazolam 0.25 mg tablet 0.25 mg PO TID PRN Anxiety 02/12/18 05/26/23 History amlodipine 10 mg tablet 10 mg PO QAM 02/12/18 05/26/23 History aspirin 81 mg tablet,delayed 81 mg PO QAM 02/12/18 05/26/23 History release (Jimy Low Dose Aspirin) bupropion HCl 150 mg 24 hr tablet, 150 mg PO QPM 02/12/18 05/26/23 History extended release (Wellbutrin XL) clobetasol 0.025 % topical cream 1 applic topical BID PRN Dry Skin 02/12/18 05/26/23 History lidocaine 5 % topical cream 1 applic topical BID PRN Dry Skin 02/12/18 05/26/23 History omeprazole 20 mg capsule,delayed 20 mg PO QAM 02/12/18 05/26/23 History release tamsulosin 0.4 mg capsule 0.4 mg PO HS 02/12/18 05/26/23 History dicyclomine 10 mg capsule 10 mg PO TID #15 caps 03/22/18 05/26/23 Rx fluoxetine 20 mg capsule 40 mg PO BID 03/22/18 05/26/23 History ondansetron 4 mg disintegrating 4 mg PO BID PRN Nausea 03/22/18 05/26/23 History tablet magnesium chloride 64 mg 400 mg PO TID 03/21/19 05/26/23 History (magnesium chloride) tablet,delayed release fenofibrate nanocrystallized 48 mg 48 mg PO QPM 09/21/19 05/26/23 History tablet (Tricor) sumatriptan succinate 50 mg tablet 50 mg PO DIRECTED PRN Migraine 09/21/19 05/26/23 History (Imitrex) Headache vitamin B complex 1 tab PO QAM 09/21/19 05/26/23 History isosorbide mononitrate 30 mg 30 mg PO BID 02/12/20 05/26/23 History tablet,extended release 24 hr rosuvastatin 40 mg tablet (Crestor) 40 mg PO HS 02/12/20 05/26/23 History secukinumab 150 mg/mL subcutaneous 300 mg subcut UD 03/19/20 05/26/23 History pen injector (Cosentyx Pen) gabapentin 100 mg capsule 400 mg PO TID 05/07/20 05/26/23 History cholecalciferol (vitamin D3) 25 2,000 unit PO QAM 05/23/20 05/26/23 History mcg (1,000 unit) capsule lisinopril 20 mg tablet 20 mg PO DAILY #30 tabs 06/10/20 05/26/23 Rx metoprolol succinate 50 mg 50 mg PO QPM 11/20/20 05/26/23 History tablet,extended release 24 hr (Toprol XL) coenzyme Q10 200 mg capsule (Co 200 mg PO QAM 01/06/21 05/26/23 History Q-10) hydralazine 25 mg tablet 25 mg PO BID 08/05/21 05/26/23 History ciprofloxacin HCl 500 mg tablet 500 mg PO BID #60 tabs 04/20/23 05/26/23 Rx metronidazole 500 mg tablet 500 mg PO TID #90 tabs 04/20/23 05/26/23 Rx Magnesium Infusions 1 dose UD PRN low magensium levels 05/18/23 05/26/23 History fyqlqc-zepybztn-zgjrtol 1 cap PO TID 05/18/23 05/26/23 History 10,000-32,000-42,000 unit capsule,delayed rel (Zenpep) magnesium L-lactate 84 mg 84 mg PO QAM 05/18/23 05/26/23 History tablet,extended release metformin 1,000 mg tablet 1,000 mg PO BID 05/18/23 05/26/23 History methocarbamol 500 mg tablet 500 mg PO UD PRN muscle spasms 05/18/23 05/26/23 History vitamin A 2,400 mcg capsule 2,400 mcg PO QAM 05/18/23 05/26/23 History amiloride 5 mg tablet 2.5 mg (1/2 x 5 mg) PO DAILY #45 05/26/23 05/26/23 Rx tabs Patient History Medical History (Updated 05/26/23 @ 19:04 by Theron Orosco DO) Prinzmetal angina follows with [facility] cardio, stable per 12/02/22 note Potassium disorder h/o hyperkalemia and hypokalemia-follows with [facility] with notation of hypokalemia 05/04/23 office note 5.3 04/28/23 Clostridium difficile infection hx Pre-diabetes on metformin History of colon polyps none on most recent colonoscopy. Hyperlipidemia Enlarged prostate Overactive bladder Psoriasis (a type of skin inflammation) Torn rotator cuff left Kidney stones current/no problems with. Migraines Anemia hx JAY (obstructive sleep apnea) CPAP Personal history of nicotine dependence Diverticulitis Hypertension Asthma controlled/last use a few weeks ago x1 use. Denies recent flares. Irritable bowel disease Pancreatitis HX Hypomagnesemia follows with [facility] Surgical History (Updated 05/26/23 @ 19:20 by Theorn Orosco DO) History of cardiac cath yrs ago/[facility]/no stent(s). Highest blockage around 50 %. H/O esophagogastroduodenoscopy (08/23/22) Dr. Cadena H/O colonoscopy (08/23/22) Hx of cholecystectomy H/O hernia repair H/O hemorrhoidectomy Family History Mother Cancer Diabetes Grandmother Colorectal cancer Brother Clotting disorder Diabetes Family/Other Hypertension Other Heart disease Social History (Updated 01/10/23 @ 14:24 by Purnima Dobbins RN) Smoking Status: Former smoker Tobacco Type: Cigarettes Age Started Using Tobacco: 17; Age Quit Using Tobacco: 61; packs per day: 1; Smoking End Date: 2 yr ago; Second Hand Exposure: Yes; Do You Dip or Chew Tobacco: No; Preferred Language: Colombian Communication Ability: Effective Bioinformatics Support Specialist Required: No Beliefs That Will Affect Care: None Current Living Situation: Alone Other Information That Helps Us Care for You: No Feels Safe at Home: Yes Assistive Devices: CPAP and Glasses Review of Systems Review of Systems: reviewed, per HPI Physical Exam Physical Exam: Constitutional: well-appearing, no acute distress HEENT: NCAT, no conjunctival injection CV: regular rhythm, no murmur appreciated, extremities well-perfused, no LE edema Resp: CTABL, no wheezes/rales/rhonchi appreciated, no increased work of breathing GI: soft, nondistended, TTP near incision sites MSK: no gross deformities appreciated Skin: warm, dry, no rash appreciated, incisons C/D/I Neuro: alert, oriented, no focal neurologic deficit appreciated Results & Data Results & Data Vital Signs (Past 12 Hours) Vital Signs Temp Pulse Pulse Resp BP Pulse Ox O2 Del Method 05/26/23 18:01 36.9 C 74 16 131/73 94 Nasal Cannula 05/26/23 17:55 Nasal Cannula 05/26/23 17:30 36.8 C 80 16 150/76 H 94 Nasal Cannula 05/26/23 17:03 37.2 C 84 16 146/75 H 93 Nasal Cannula 05/26/23 16:40 90 14 151/63 H 92 Nasal Cannula 05/26/23 16:30 37.1 C 93 H 10 L 164/78 H 92 Oxymask 05/26/23 16:20 91 H 12 152/80 H 94 Oxymask 05/26/23 16:10 92 H 18 153/79 H 94 Oxymask 05/26/23 16:03 36.1 C L 97 H 20 146/86 H 99 Oxymask 05/26/23 11:47 Room Air, CPAP 05/26/23 11:47 37.1 C 70 18 173/90 H 93 Room Air, CPAP O2 Flow Rate 05/26/23 18:01 3 05/26/23 17:55 3 05/26/23 17:30 3 05/26/23 17:03 3 05/26/23 16:40 3 05/26/23 16:30 4 05/26/23 16:20 6 05/26/23 16:10 8 05/26/23 16:03 10 05/26/23 11:47 05/26/23 11:47
--- OUTSIDE RECORDS SUMMARY | 2023-05-26 19:56 | External Medical Summary | Continuity of Care Document ---
Author Name Unknown Organization [facility] [address] Address [address] [place], [place] [id number] Care Team Providers Care Headliner Installer Name Role Phone Roman Montse Ha Primary Care P kenn [phone] Encounter [facility] [id number] Date(s): 05/11/23 - 05/11/23 [facility] [address] [facility] [address] [facility], [address] [place], [place] [phone] Encounter Diagnosis Hypomagnesemia(Final) - Discharge Disposition: Home or Self Care Attending Physician: MD Moore Jesse Referring Physician: MD Moore Jesse Allergies, Adverse Reactions, Alerts Substance Reaction Severity Status predniSONE unknown Active sulfa drugs unknown Active Immunizations Given and Recorded Vaccine Date Status Refusal Reason SARS-CoV-2 mRNA-1273 (6y+ bivalent) 1 05/07/22 Rec orded influenza virus vaccine, inactivated 02/01/22 Rahul rded influenza virus vaccine, inactivated 01/29/20 Give n influenza virus vaccine, inactivated 01/16/18 Give n influenza virus vaccine, inactivated 01/05/17 Give n influenza virus vaccine, inactivated 02/06/16 Give n influenza virus vaccine, inactivated 02/25/15 Give n influenza virus vaccine, inactivated 12/17/13 Rahul rded influenza virus vaccine, inactivated 11/23/13 Rahul rded influenza virus vaccine, inactivated 03/29/13 Rahul rded influenza virus vaccine, inactivated 02/18/12 Rahul rded influenza virus vaccine, inactivated 03/26/10 Rahul rded SARS-CoV-2 (COVID-19) mRNA-1273 vaccine 12/04/20 R ecorded SARS-CoV-2 (COVID-19) mRNA-1273 vaccine 2 07/24/20 Recorded SARS-CoV-2 (COVID-19) mRNA-1273 vaccine 07/22/20 R ecorded SARS-CoV-2 (COVID-19) mRNA-1273 vaccine 06/25/20 R ecorded SARS-CoV-2 (COVID-19) mRNA-1273 vaccine 3 06/18/20 Recorded zoster vaccine, inactivated 4 08/29/19 Given zoster vaccine, inactivated 5 05/24/19 Given tetanus toxoids-diphtheria, Td (Adult) 07/21/17 Gi shahnaz pneumococcal 23-valent vaccine 07/21/17 Given pneumococcal 23-valent vaccine 6 04/01/10 Recorded pneumococcal 13-valent vaccine 04/01/10 Recorded tetanus/diphtheria/pertuss, acel (Tdap) 04/27/07 R ecorded 1Result Comment: 2022-05-28: Historical information-source unspecified 2Result Comment: 2022-05-28: Historical information-source unspecified 3Result Comment: 2022-05-28: Historical information-source unspecified 4Result Comment: Dillulent lot# [id number] exp: 08/30/2021 5Result Comment: STERILE DILUENT LOT: [id number] EXP: 08/01/21 6Result Comment: 2022-05-28: Historical information-source unspecified Medications ALPRAZolam 0.25 mg oral tablet Start: 10/25/22 14:50:00 EDT, 1 tab, PO, tid, Disp# 270 tab, Refills: 0, Note to Pharmacy: PDMP, PRN: as needed for anxiety, Pharmacy: [facility] Start Date: 10/25/22 Status: Ordered ALPRAZolam 0.25 mg oral tablet Start: 10/25/22 15:00:00 EDT, 1 tab, PO, tid, Disp# 270 tab, Refills: 0, Note to Pharmacy: PDMP, PRN: as needed for anxiety, Pharmacy: [facility] Start Date: 10/25/22 Status: Ordered amLODIPine 5 mg oral tablet Start: 03/15/23 8:40:00 EST, 1 tab, PO, Daily, Disp# 90 tab, Refills: 3, Pharmacy: [facility] Start Date: 03/15/23 Status: Ordered aspirin 81 mg oral tablet Start: 04/22/14 15:47:00, 1 tab, PO, Daily Start Date: 04/22/14 Status: Ordered Augmentin 875 mg-125 mg oral tablet Start: 04/08/23 10:37:00 EST, amoxicillin 1 tab, PO, q12h, Disp# 20, Refills: 0, Pharmacy: [id number] Start Date: 04/08/23 Stop Date: 04/18/23 Status: Ordered budesonide-formoterol 160 mcg-4.5 mcg/inh inhalation aerosol Start: 02/10/22 16:17:00 EDT, 2 puff, inhaled, bid, Disp# 30.6 g, Refills: 3, Pharmacy: [facility] Start Date: 02/10/22 Status: Ordered buPROPion 150 mg/24 hours (XL) oral tablet, extended release Start: 04/21/23 9:41:00 EST, 1 tab, PO, Daily, Disp# 90 tab, Refills: 3, Pharmacy: [facility] Start Date: 04/21/23 Status: Ordered ciprofloxacin 500 mg oral tablet Start: 12/21/22 14:18:00 EDT, 1 tab, PO, q12h, Disp# 20 tab, 20 each, TAKE ONE TABLET BY MOUTH EVERY 12 HOURS, Pharmacy: [id number] Start Date: 12/21/22 Stop Date: 12/31/22 Status: Ordered Cosentyx Sensoready Pen 150 mg/mL SQ solution Start: 03/17/23 14:13:00 EST, See Instructions, Disp# 12 pen_needle, Refills: 3, inject 2 every 4 weeks rotate injection sites, Note to Pharmacy: attn: specialty pharmacy, Pharmacy: [facility] Start Date: 03/17/23 Status: Ordered Crestor 40 mg oral tablet Start: 12/28/22 12:11:00 EDT, 1 tab, PO, qhs, Disp# 90 tab, Refills: 3, Pharmacy: [facility] Start Date: 12/28/22 Status: Ordered dicyclomine 10 mg oral capsule Start: 12/28/22 12:11:00 EDT, 1 cap, PO, qid, Disp# 360 cap, Refills: 3, Pharmacy: [facility] Start Date: 12/28/22 Status: Ordered fenofibrate micronized 200 mg oral capsule Start: 12/28/22 12:11:00 EDT, 1 cap, PO, Daily, Disp# 90 cap, Refills: 3, Pharmacy: [facility] Start Date: 12/28/22 Status: Ordered Flomax 0.4 mg oral capsule Start: 11/09/22 11:59:00 EDT, 1 cap, PO, Daily, Disp# 90 cap, Refills: 3, Pharmacy: [facility] Start Date: 11/09/22 Status: Ordered fluocinonide 0.05% topical cream Start: 12/14/22 14:03:00 EDT, 1 appl, topical, bid, Disp# 45 g, Refills: 3, apply to arms and legs,Pharmacy: [facility] Start Date: 12/14/22 Status: Ordered FLUoxetine 20 mg oral capsule Start: 12/31/22 8:31:00 EDT, 2 cap, PO, bid, Disp# 360 cap, Refills: 3, Pharmacy: [facility] Start Date: 12/31/22 Status: Ordered gabapentin 400 mg oral capsule Start: 03/23/23 16:03:00 EST, 1 cap, PO, tid, Disp# 270 cap, Refills: 3, Pharmacy: [facility] Start Date: 03/23/23 Status: Ordered GoLYTELY oral powder for reconstitution Start: 07/10/18 12:19:00 EDT, See Instructions, Disp# 4,000 mL, Take over 1-2 days until bowels evacuated, then start taking Miralax and stool softener daily, Pharmacy: [id number] Start Date: 07/10/18 Status: Ordered hydrALAZINE 25 mg oral tablet Start: 04/22/23 14:26:00 EST, 1 tab, PO, bid, Disp# 180 tab, Refills: 3, Pharmacy: [facility] Start Date: 04/22/23 Status: Ordered Imdur 30 mg oral tablet, extended release Start: 12/28/22 12:11:00 EDT, 1 tab, PO, bid, Disp# 180 tab, Refills: 3, Pharmacy: [facility] Start Date: 12/28/22 Status: Ordered Imitrex 50 mg oral tablet Start: 02/01/22 10:12:00 EDT, 1 tab, PO, ONCE, Disp# 90 tab, Refills: 3, may repeat dose once in 2 hours, PRN: as needed for migraine headache, Pharmacy: [facility] Start Date: 02/01/22 Status: Ordered lidocaine 5% topical cream Start: 04/22/14 15:35:00, PRN apply to affected area twice daily Start Date: 04/22/14 Status: Ordered lisinopril 20 mg oral tablet Start: 03/15/23 8:40:00 EST, 1 tab, PO, Daily, Disp# 90 tab, Refills: 3, Pharmacy: [facility] Start Date: 03/15/23 Status: Ordered magnesium oxide 400 mg (241.3 mg elemental magnesium) oral tablet Start: 12/07/21 16:53:00 EDT, 400 mg =, PO, tid, Disp# 90 tab, Refills: 11, Pharmacy: [id number] Start Date: 12/07/21 Status: Ordered magnesium sulfate 1 g/50 mL-D5% intravenous solution Start: 12/08/20 15:29:00 EDT, See Instructions, Disp# 400 mL, please provide 1 g in 100 mL of D5% IV over 4 hours for total of 4 grams, called to pharmacy Start Date: 12/08/20 Status: Ordered metFORMIN 500 mg oral tablet Start: 02/16/23 11:14:00 EDT, 2 tab, PO, bid, Disp# 360 tab, Refills: 3, Pharmacy: [facility] Start Date: 02/16/23 Status: Ordered metroNIDAZOLE 500 mg oral tablet Start: 12/21/22 14:18:00 EDT, 1 tab, PO, q8h, Disp# 30 tab, 30 each, TAKE ONE TABLET BY MOUTH EVERY8 HOURS FOR 10 DAYS, Pharmacy: [id number] Start Date: 12/21/22 Stop Date: 12/31/22 Status: Ordered nitroglycerin 0.4 mg sublingual tablet Start: 01/31/20 13:54:00 EDT, 1 tab, SL, q5min, Disp# 25 tab, Refills: 1, not to exceed 3 doses/15 min--if pain persists, seek medical attention, PRN: as needed for chest pain, Pharmacy: [facility] Start Date: 01/31/20 Status: Ordered omeprazole 20 mg oral delayed release capsule Start: 12/28/22 16:33:00 EDT, 1 cap, PO, Daily, Disp# 90 cap, Refills: 3, Pharmacy: [facility] Start Date: 12/28/22 Status: Ordered ondansetron 4 mg oral tablet, disintegrating Start: 02/01/22 10:12:00 EDT, 1 tab, PO, bid, Disp# 180 tab, Refills: 3, PRN: as needed for nausea/vomiting, Pharmacy: [facility] Start Date: 02/01/22 Status: Ordered oxygen Start: 01/29/20 14:32:00 EDT, oxygen, 2 liters of o2 bled in to cpap Start Date: 01/29/20 Status: Ordered Pepcid 20 mg oral tablet Start: 04/27/23 8:10:00 EST, 1 tab, PO, bid, Disp# 180 tab, Refills: 3, Pharmacy: [facility] Start Date: 04/27/23 Status: Ordered Robaxin 500 mg oral tablet Start: 04/27/23 8:10:00 EST, 1 tab, PO, qhs, Disp# 30 tab, Refills: 0, take at night as needed; no heavy machinery use or driving after taking, Pharmacy: [facility] Start Date: 04/27/23 Status: Ordered Toprol-XL 50 mg oral tablet, extended release Start: 02/03/23 20:36:00 EDT, 1 tab, PO, qhs, Disp# 90 tab, Refills: 3, Pharmacy: [facility] Start Date: 02/03/23 Status: Ordered Veltassa 8.4 g oral powder for reconstitution Start: 03/18/22 14:57:00 EST, 8.4 g =, PO, Daily, Disp# 60 g, Refills: 0, Pharmacy: [facility] Start Date: 03/18/22 Status: Ordered Ventolin HFA 90 mcg/inh inhalation aerosol Start: 02/10/22 16:16:00 EDT, See Instructions, Disp# 20.1 g, Refills: 3, 2 puffs every 4 hrs as needed for cough or wheezing, Pharmacy: [facility] Start Date: 02/10/22 Status: Ordered Vitamin A, D oral capsule Start: 04/22/14 15:43:00, 1 cap, PO, Daily, Start Date: 04/22/14 Status: Ordered Vitamin B Complex Start: 04/05/17 14:33:00 Start Date: 04/05/17 Status: Ordered Zenpep 10,000 units-32,000 units-42,000 units oral delayed release capsule Start: 04/19/23 12:20:00 EST, 1 cap, PO, tid, Disp# 300 cap, Refills: 1, Pharmacy: [facility] Start Date: 04/19/23 Status: Ordered Problem List Condition Confirmation Course Effective Dates Status Health Status Informant Anemia 1 Confirmed Active Angina pectoris Confirmed Active Raymond's esophagus Confirmed Active Benign hypertension Confirmed Active Elevated C-reactive protein (CRP) 2 Confirmed Active Chronic low back pain Confirmed Active Chronic pancreatitis Confirmed Active Low serum HDL Confirmed Active Diaphragmatic hernia 3 Confirmed Active Dyslipidemia 4 Confirmed Active Exocrine pancreatic insufficiency Confirmed Active Hemorrhoids, external Confirmed Active Fibromyalgia Confirmed Active GE reflux Confirmed Active Abdominal pain Confirmed Active Anxiety Confirmed Active History of iron deficiency anemia Confirmed Active Hx of Clostridium difficile infection Confirmed Active History of obsessive compulsive disorder 5 Confirmed Active Personal history of immunosupression therapy Confirmed Active Personal history of colonic polyps 6 Confirmed Active Lipidemia Confirmed Active Hyperglyceridemia 7 Confirmed Active Hypomagnesemia Confirmed Active Irritable bowel syndrome (IBS) 8 Confirmed Active Nephrolithiasis Confirmed Active Migraine headache Confirmed Active Asthma Confirmed Active Nausea & vomiting Confirmed Active Psoriasis Confirmed Active Emphysema of lung Confirmed Active Depression Confirmed Active Seasonal allergies Confirmed Active Sleep apnea Confirmed Active Fatty liver 9 Confirmed Active Tobacco user Confirmed Active Weight disorder Confirmed Active 30/03/14 taken from [facility] records. take from [facility] [employer] [facility] records 3taken from [facility] records 4taken from [facility] records. 5taken from [facility] record 02/14/2004 6taken from [employer] 7taken from [facility] records. 8taken from [employer] [facility] records. 9taken from [employer] Procedures Procedure Date Related Diagnosis Body Site Status CAT scan 1 05/28/17 Completed Upper GI endoscopy 2 04/22/17 Comp leted Gastrografin enema 3 09/23/[address] of abdomen and pelvis wit h contrast 4 09/08/[address] of abdomen and pelvis 5 07/16/[address] of abdomen and pelvis 6 03/22/16 Completed Colonoscopy 7 01/27/16 Completed PFT - lung volume testing 8 01/20/[address] of abdomen and pelvis 9 01/07/16 Completed Laboratory findings data interpretation 10 12/11/15 Completed Ultrasound finding 11, 12 09/26/[address] of abdomen and pelvis wit h contrast 13, 14 08/27/[address] of abdomen and pelvis 15, 16 07/11/[address] of abdomen and pelvis 17, 18 05/30/15 Completed Emergency department patient visit 19 05/30/15 Completed Nerve root irritation lumbar spine L4-L5 03/27/15 Completed Procedure 20 03/27/15 Completed MRI of lumbar spine 21 01/02/15 Co mpleted Esophagogastroduodenoscopy 22, 23, 24 09/03/14 Completed Emergency department patient visit 25 08/22/14 Completed KUB X-ray 26 08/22/14 Completed CAT scan 27, 28 02/08/14 Completed Stress echocardiography test interpretation 29 12/18/13 Completed Hemorrhoidectomy 11/20/13 Complete d Polysomnography 30 09/21/13 Comple castro Capsule endoscopy of small i ntestine 31 09/2013 Completed Colonoscopy 32 09/11/13 Completed Esophagogastroduodenoscopy 33 09/11/[address] brain w/o contrast 34 06/19/13 Completed Duplex 35, 36 06/2013 Completed Repair inguinal hernia, slid ing, any age 1204/17/[address] of abdomen and pelvis 37 03/19/13 Completed Ultrasound finding 38 03/19/13 Com pleted Laparoscopic cholecystectomy with cholangiography 12/03/09 Completed Esophagogastroduodenoscopy 09/04/09 Completed Endoscopic ultrasound of upp er gastrointestinal tract 39 08/2009 Comple castro Colonoscopy 40, 41 07/25/[address] of abdomen 07/17/[address] - Computerized tomography 42 07/2009 Completed Esophagogastroduodenoscopy 07/09/09 Completed Procedure 43 06/23/09 Completed US - Ultrasound 06/23/09 Completed Cholecystectomy 2009 Completed Hernia repair Completed Procedure 44 Completed 1abd/pelvis IV and oral contrast findings consistent with acute ncomplicated diverticulitis in the distal sigmoid colon and immediately superior to the bladder dome. no evidence of absecess or chapis perforation bilateral nephrolithiasis. no hydronephrosis. 2Examined esophagus was normal. there was no endoscopic evidence of Raymond's. The entire examined stomach was normal. Biopsies were taken with a cold forceps for histology. 3Impression: Extensive sigmoid diverticulosis. Otherwise, unremarkable single contrast Gastrografin enema. Decreased sensitivity for detection of mucosal lesions gien signle contrast Gastrografin technique although no suspicious findings. 4Impression: There are no acute infectious or inflammatory findings in the abdomen or pelvis. There is been no significant change from recent prior examinations. Moderate sigmoid diverticulosis without CT evidence of acute diverticulitis. Numerous bilateral nonobstructing renal calculi Emphysematous changes are suspected at the lung bases. Additional findings as detailed above. 5Impression: There are no acute infectious or inflammatory findings in the abdomen There are numerous bilateral nonobstructing renal calculi as above. There is no hydronephrosis, andno calculi are identified in the proximal to mid ureters. Emphysematous change is noted a the lung bases. Additional findings as detailed above. 6Impression: Bilateral nephrolithiasis. No ureteral or bladder calculi identified. 6.6 cm left renal cyst Proastamegaly No evidence of bowel obstruction. No evidence of free air Diverticulosis. No evidence of acute diverticulitis Stable hepatic hypodensities likely representing cysts. 7Impression: one 3 mm polyp in the rectum, removed with a cold biopsy forceps. Resected and retrieved. The examination is otherwise normal The examined portion of the ileum was normal scar in the rectum. 8The spirometry reveals mild obstruction with no change in the airflow with the use of albuterol. 91. Bilateral nephrolithiasis. No hydronephrosis. 2. Subotimal evaluation for bowel pathology d/t the lack of IV and oral contrast. owever, there is no definite bowel wall thickening or obstruction. 3. Colonic diverticulosis 4. Normal appendix. 5. Cholecystectomy. 6. Stable hepatic and renal hypodense lesions. These are incompletely characterize on this noncontrast study but favor cysts. 10Serum durges of abuse screen negative. 11Mesenteric Doppler normal. 12incidental renal cyst noted. 13A/P CT scan CT scan showed 11 mm cyst in liver and other liver lesions likely cysts but too small to characterize, minimal central intrahepatic biliary duct dilatation s/p swetha, renal stones, renal cysts and other renal lesions likely cysts but too small for definitive characterization, tin moderate fecal retention, emyphsema, renal stones, tiny duodenal diverticulum. 14Impression: Theree are no acute infectious or inflammatory findings in the abdomen or pelvis. moderate sigmoid diverticulosis without Ct evidence of acute diverticulitis. Numerous bilateral nonobstructing renal calculi. Emphysematous changes are suspected at the lung bases. Additional changes as detailed above. 15A/P CT report reviewed with conclusions as noted. 161) Diverticulosis coli. Findings of idverticulitis preciously are improved. No drainable fluid collections are seen. 2) Presumed hepatic and renal cysts 3) B/L renal calcifications/calculi 4) S/P cholecystectomy 17Impression: Suboptimal examination without oral and IV contrast. Findings are consistent with mild acute diverticulitis in the sigmoid colon. there is no intraperitoneal free aire identified and no evidnece of diverticular abscess on this unenhanced examination. Numerous bilateral nonobstructing renal calculi Emphysematous changes are suspected at the lung base. Additional changes as detailed above. 18report reviewed with conclusions as noted. addiitonal findings renal cysts, liver cysts, R inguinalhernia 19[facility] ER abd pain. A/P CT c/w sigmoid diverticulitis.CBC WBC 11.2 H, o/w nl, CMP nl, lipase normal. 20Irratation L4-5, Dr. Clair Stephen 21Spinal stenosis, renal cysts, disc bulging 22EGD small HH, possible tongue of Barretts bx, antrum bx done 23path EG inflammation but NO Barretts, antrum inflammation 24repeat EGD 3 years for hx of Barretts 25ER for abd pain, black stool, No rectal done that I can see. CMP alk phos 136, gluc 112, otherwise nl. lipase normal. CBC WBC 10.96 H abd series neg. 26abd series in ER bilateral renal calcifications 27of pancreas w and with out iv few punctate pancreatic calcifications. pancreas otherwise shows normal morphology scattered subcentimeter hepatic and splenic hypodense lesions and most likely cysts . bilateral renal cysts and too small to characterize hypodense renal foci. 28Reviewed whole report and calcifications in pancreas c/w chronic pancreatitis, slight interval development of probable liver and renal cysts, new renal cyst, nonobstructing renal calculi. 29Stress echo neg 30severe sleep apnea 2 liters of 02 31Capsule endoscopy mentioned in [facility] records as negative but do not have primary report. 32diverticulosis, rectal prolapse,hemorrhoids 33EGD irregular Z line, enlarged gastric fold, normal duodenum path GERD, Barretts, nl duodenum, gastric path benign 34[facility] records. Brain parenchyma the brain is normal in appearance . there is no hemorrhage mass-effect or evidence of acute of acute territorial ischemia by ct criteria sandoval white matter differentation is maintained no extra axist fluid collection is seen. ventricies ronnie and cisterns normal inconfiguration. intracrainal vasculature unremarkable. sinuses and mastoids the imaged paranasal sinuses are clear the mastoid air. 35Duplex done 06/2013 showing above 36renal artery from [facility] records. conclusion no evidence of hemodynamically significant renal artery stenosis. normal results described above. a cystic mas was identified on the left kidney images. 37CT A/P liver cysts, bilateral renal calculi, diverticulosis coli, tiny subpleural nodule lingula, s/p swetha, inguinal hernias 38U/S Inguinal Left inguinal hernia bowewl and fat reducible. 39[facility] records mentions summary of EUS 2009 showing chronic pancreattisi but do not have primaryreport. colo [facility] summarized as HP polyps but do not have primary report. 41with bx rectum 42per [facility] records mentions a CT 07/2009 showing pancrease calcified. Do not have primary report 43UGI 44fracture Results Laboratory List Name Date Magnesium Level (MAGNESIUM) 05/11/23 Request to FAX Report (First Location) ( ACC NO TO BE FAXED) 05/11/23 Most recent to oldest [Reference Range]: 1 Phone No [phone] (05/11/23 1:18 PM) Faxed on: 05/12/23 09:45 (05/11/23 1:18 PM) Mg [1.6-2.3 mg/dL] 1.5 mg/dL 2 *LOW* (05/11/23 1:18 PM) 1Result Comment: Testing Performed By: Dept of Pathology [facility] [address], [place] [address] 2Result Comment: Testing Performed By: Dept of Pathology [facility] [address], [address], [place] [address] Social History Social History Type Response Tobacco Former smoker, Cigar ettes, 7 per day. 36 year(s). Stopped age 55 Years. Smoking Status Former Smoker, quit > 1 yr Sex Male Patient Care team information Care Team Personnel Name: Abel Ha DO, Mariana Annette Position: Physician - Family Med Member Role: Primary Care Provider Address: Address: [address] [place] [address] [address] [place] [address] Name: Poncho Azul Kelly B Position: Pharmacist Member Role: Pharmacy - Lifetime Address: Address: [address] [place] [id number] [place] Care Team Related Persons Name: MARISA OLIVEIRA Address: home [address] [facility] [facility] [place] [phone]
--- OUTSIDE RECORDS SUMMARY | 2023-05-26 19:56 | External Medical Summary | Continuity of Care Document ---
Author Name Unknown Organization [address] Address [address] [place] [phone] Care Team Providers Care Control Director Name Role Phone [facility] hysicinader [phone] [id number] Date(s): 05/13/23 - 05/13/[address] [place] [address], [address] [place] [address] [phone] Encounter Diagnosis Diverticulitis(Discharge Diagnosis) - 12/21/22 Body mass index [BMI] 33.0-33.9, adult(Discharge Diagnosis) - 05/13/23 Benign hypertension(Discharge Diagnosis) - 05/13/23 Chronic low back pain(Discharge Diagnosis) - 05/13/23 Weight disorder(Discharge Diagnosis) - 05/13/23 Discharge Disposition: Home or Self Care Attending [...] PDMP, PRN: as needed for anxiety, Pharmacy: [facility] Start Date: 10/25/22 Status: Ordered ALPRAZolam 0.25 mg oral tablet Start: 10/25/22 15:00:00 EDT, 1 tab, PO, tid, Disp# 270 tab, Refills: 0, Note to Pharmacy: PDMP, PRN: as needed for anxiety, Pharmacy: [facility] Start Date: 10/25/22 Status: Ordered amLODIPine 5 mg oral tablet Start: 03/15/23 8:40:00 EST, 1 tab, PO, Daily, Disp# 90 tab, Refills: 3, Pharmacy: [facility] Start Date: 03/15/23 Status: Ordered aspirin 81 mg oral tablet Start: 04/22/14 15:47:00, 1 tab, PO, Daily Start Date: 04/22/14 Status: Ordered Augmentin 875 mg-125 mg oral tablet Start: 04/08/23 10:37:00 EST, amoxicillin 1 tab, PO, q12h, Disp# 20, Refills: 0, Pharmacy: [id number] Start Date: 04/08/23 Stop Date: 04/18/23 Status: Ordered budesonide-formoterol 160 mcg-4.5 mcg/inh inhalation aerosol Start: 02/10/22 16:17:00 EDT, 2 puff, inhaled, bid, Disp# 30.6 g, Refills: 3, Pharmacy: [facility] Start Date: 02/10/22 Status: Ordered buPROPion 150 mg/24 hours (XL) oral tablet, extended release Start: 04/21/23 9:41:00 EST, 1 tab, PO, Daily, Disp# 90 tab, Refills: 3, Pharmacy: [facility] Start Date: 04/21/23 Status: Ordered ciprofloxacin 500 mg oral tablet Start: 12/21/22 14:18:00 EDT, 1 tab, PO, q12h, Disp# 20 tab, 20 each, TAKE ONE TABLET BY MOUTH EVERY 12 HOURS, Pharmacy: [id number] Start Date: 12/21/22 Stop Date: [...] qhs, Disp# 90 tab, Refills: 3, Pharmacy: [facility] Start Date: 12/28/22 Status: Ordered dicyclomine 10 mg oral capsule Start: 12/28/22 12:11:00 EDT, 1 cap, PO, qid, Disp# 360 cap, Refills: 3, Pharmacy: [facility] Start Date: 12/28/22 Status: Ordered fenofibrate micronized 200 mg oral capsule Start: 12/28/22 12:11:00 EDT, 1 cap, PO, Daily, Disp# 90 cap, Refills: 3, [facility] Start Date: 12/28/22 Status: Ordered Flomax 0.4 mg oral capsule Start: 11/09/22 11:59:00 EDT, 1 cap, PO, Daily, Disp# 90 cap, Refills: 3, Pharmacy: [facility] Start Date: 11/09/22 Status: Ordered fluocinonide 0.05% topical cream Start: 12/14/22 14:03:00 EDT, 1 appl, topical, bid, Disp# 45 g, Refills: 3, apply to arms and legs,Pharmacy: [facility] Start Date: 12/14/22 Status: Ordered FLUoxetine 20 mg oral capsule Start: 12/31/22 8:31:00 EDT, 2 cap, PO, bid, Disp# 360 cap, Refills: 3, Pharmacy: [facility] Start Date: 12/31/22 Status: Ordered gabapentin 400 mg oral capsule Start: 03/23/23 16:03:00 EST, 1 cap, PO, tid, Disp# 270 cap, Refills: 3, [facility] Start Date: 03/23/23 Status: Ordered GoLYTELY oral powder for reconstitution Start: 07/10/18 12:19:00 EDT, See Instructions, Disp# 4,000 mL, Take over 1-2 days until bowels evacuated, then start taking Miralax and stool softener daily, Pharmacy: [facility] [id number] Start Date: 07/10/18 Status: Ordered hydrALAZINE 25 mg oral tablet Start: 04/22/23 14:26:00 EST, 1 tab, PO, bid, Disp# 180 tab, Refills: 3, [facility] Start Date: 04/22/23 Status: Ordered Imdur 30 mg oral tablet, extended release Start: 12/28/22 12:11:00 EDT, 1 tab, PO, bid, Disp# 180 tab, Refills: 3, Pharmacy: [facility] Start Date: 12/28/22 Status: Ordered Imitrex 50 mg oral tablet Start: 02/01/22 10:12:00 EDT, 1 tab, PO, ONCE, Disp# 90 tab, Refills: 3, may repeat dose once in 2 hours, PRN: as needed for migraine headache, [facility] Start Date: 02/01/22 Status: Ordered lidocaine 5% topical cream Start: 04/22/14 15:35:00, PRN apply to affected area twice daily Start Date: 04/22/14 Status: Ordered lisinopril 20 mg oral tablet Start: 03/15/23 8:40:00 EST, 1 tab, PO, Daily, Disp# 90 tab, Refills: 3, Pharmacy: [facility] Start Date: 03/15/23 Status: Ordered magnesium oxide 400 mg (241.3 mg elemental magnesium) oral tablet Start: 12/07/21 16:53:00 EDT, 400 mg =, PO, tid, Disp# 90 tab, Refills: 11, Pharmacy: [id number] Start Date: 12/07/21 Status: Ordered magnesium sulfate [...] bid, Disp# 360 tab, Refills: 3, Pharmacy: [facility] Start Date: 02/16/23 Status: Ordered metroNIDAZOLE 500 mg oral tablet Start: 12/21/22 14:18:00 EDT, 1 tab, PO, q8h, Disp# 30 tab, 30 each, TAKE ONE TABLET BY MOUTH EVERY8 HOURS FOR 10 DAYS, Pharmacy: [id number] Start Date: 12/21/22 Stop Date: 12/31/22 Status: Ordered nitroglycerin 0.4 mg sublingual tablet Start: 01/31/20 13:54:00 EDT, 1 tab, SL, q5min, Disp# 25 tab, Refills: 1, not to exceed 3 doses/15 min--if pain persists, seek medical attention, PRN: as needed for chest pain, Pharmacy: [facility] [place] [id number] Start Date: 01/31/20 Status: Ordered omeprazole 20 mg oral delayed release capsule Start: 12/28/22 16:33:00 EDT, 1 cap, PO, Daily, Disp# 90 cap, Refills: 3, Pharmacy: [facility] Start Date: 12/28/22 Status: Ordered ondansetron 4 mg oral tablet, disintegrating Start: 02/01/22 10:12:00 EDT, 1 tab, PO, bid, Disp# 180 tab, Refills: 3, PRN: as needed for nausea/vomiting, [facility] Start Date: 02/01/22 Status: Ordered oxygen Start: 01/29/20 14:32:00 EDT, oxygen, 2 liters of o2 bled in to cpap Start Date: 01/29/20 Status: Ordered Pepcid 20 mg oral tablet Start: 04/27/23 8:10:00 EST, 1 tab, PO, bid, Disp# 180 tab, Refills: 3, Pharmacy: [facility] Start Date: 04/27/23 Status: Ordered Robaxin 500 mg oral tablet Start: 04/27/23 8:10:00 EST, 1 tab, PO, qhs, Disp# 30 tab, Refills: 0, take at night as needed; no heavy machinery use or driving after taking, [facility] Start Date: 04/27/23 Status: Ordered Toprol-XL 50 mg oral tablet, extended release Start: 02/03/23 20:36:00 EDT, 1 tab, PO, qhs, Disp# 90 tab, Refills: 3, [facility] Start Date: 02/03/23 Status: Ordered Veltassa 8.4 g oral powder for reconstitution Start: 03/18/22 14:57:00 EST, 8.4 g =, PO, Daily, Disp# 60 g, Refills: 0, Pharmacy: [facility] [place] [id number] Start Date: 03/18/22 Status: Ordered Ventolin HFA 90 mcg/inh inhalation aerosol Start: 02/10/22 16:16:00 EDT, See Instructions, Disp# 20.1 g, Refills: 3, 2 puffs every 4 hrs as needed for cough or wheezing, Pharmacy: [facility] Start Date: 02/10/22 Status: Ordered Vitamin A, D oral capsule Start: 04/22/14 15:43:00, 1 cap, PO, Daily, Start Date: 04/22/14 Status: Ordered Vitamin B Complex Start: 04/05/17 14:33:00 Start Date: 04/05/17 Status: Ordered Zenpep 10,000 units-32,000 units-42,000 units oral delayed release capsule Start: 04/19/23 12:20:00 EST, 1 cap, PO, tid, Disp# 300 cap, Refills: 1, Pharmacy: [facility] Start Date: 04/19/23 Status: Ordered Mental Status 05/13/23 Barriers to Learning one year Vision imp airment, Other: wears eye glasses. Mandatory Health Literacy Documentation Yes Health Literacy Communication Barriers N ever Primary Language Korean Problem List Condition Confirmation Course Effective Dates [...] Weight disorder Confirmed Active 30/03/14 taken from [facility] records. take from [facility] records 3taken from [facility] records 4taken from [facility] records. 5taken from [facility] record 02/14/2004 6taken from [facility] 7taken from [facility] records. 8taken from [facility] records. 9taken from [facility] Diagnosis Diagnosis Type Effective Dates Health Status Clinical Service Informant Diverticulitis Discharge Diagnosis 12/21/22 Non-Specified Body mass index [BMI] 33.0-33.9, adult Discharge Diagnosis 05/13/23 Non-Specified Benign hypertension Discharge Diagnosis 05/13/23 Chronic low back pain Discharge Diagnosis 05/13/23 Weight disorder Discharge Diagnosis 05/13/23 Procedures Procedure Date Related Diagnosis Body Site [...] castro Capsule endoscopy of small i ntestine 09/2013 Completed Colonoscopy 32 09/11/13 Completed Esophagogastroduodenoscopy [...] findings renal cysts, liver cysts, R inguinalhernia 19[facility] ER abd pain. A/P CT c/w sigmoid [...] liters of 02 31Capsule endoscopy mentioned in [facility] records as negative but do not have [...] done 06/2013 showing above 36renal artery from [facility] records. conclusion no evidence of hemodynamically significant [...] chronic pancreattisi but do not have primaryreport. 404/2009 colo [facility] summarized as HP polyps but do not have primary report. 41with bx rectum 42per [facility] records mentions a CT 07/2009 showing pancrease calcified. Do not have primary report 43UGI 44fracture Vital Signs Most recent to oldest [Reference Range]: 1 Height 176.4 cm (05/13/23 9:23 AM) Patient Weight 104.9 kg (05/13/23 9:23 AM) Body Mass Index 33.71 kg/m2 (05/13/23 9:23 AM) Temperature [36.5-37.9 DegC] 36.2 DegC *LOW* (05/13/23 9:23 AM) Blood Pressure 115/70mmHg (05/13/23 9:23 AM) Cuff Pulse Pressure 45 mmHg (05/13/23 9:23 AM) Social History Social History Type Response Tobacco Former smoker, Cigar ettes, 7 per day. 35 year(s). Stopped age 55 Years. Smoking Status Former Smoker, quit > 1 yr Sex Male Patient Care team information Care Team Personnel Name: Abel Ha DO, Mariana Annette Position: Physician - Family Med Member Role: Primary Care Provider Address: Address: [address] [place] [address] [address] [place] [address] Name: Poncho Azul Kelly B Position: Pharmacist Member Role: Pharmacy - Lifetime Address: Address: [address] [place] [address] [place] [address] Care Team Related Persons Name: MARISA OLIVEIRA Address: home [address] [facility] [place] [phone]
--- OUTSIDE RECORDS SUMMARY | 2023-05-26 19:56 | External Medical Summary | Continuity of Care Document ---
Author Name Unknown Organization [facility] [address] [place] [id number] Care Team Providers Care Dulser Name Role Phone Roman Montse Ha Primary [facility] P kenn [phone] [id number] Date[facility]s): 05/17/23 - 05/17/23 [facility] [address] [facility] [address] [facility], [address] [place], [phone] Encounter Diagnosis Hypomagnesemia(Final) - Discharge Disposition: Home [...] PDMP, PRN: as needed for anxiety, Pharmacy: [facility] Start Date: 10/25/22 Status: Ordered ALPRAZolam 0.25 mg oral tablet Start: 10/25/22 15:00:00 EDT, 1 tab, PO, tid, Disp# 270 tab, Refills: 0, Note to Pharmacy: PDMP, PRN: as needed for anxiety, Pharmacy: [facility] Start Date: 10/25/22 Status: Ordered amLODIPine 5 mg oral tablet Start: 03/15/23 8:40:00 EST, 1 tab, PO, Daily, Disp# 90 tab, Refills: 3, Pharmacy: [facility] Start Date: 03/15/23 Status: Ordered aspirin 81 mg oral tablet Start: 04/22/14 15:47:00, 1 tab, PO, Daily Start Date: 04/22/14 Status: Ordered Augmentin 875 mg-125 mg oral tablet Start: 04/08/23 10:37:00 EST, amoxicillin 1 tab, PO, q12h, Disp# 20, Refills: 0, Pharmacy: [id number] Start Date: 04/08/23 Stop Date: 04/18/23 Status: Ordered budesonide-formoterol 160 mcg-4.5 mcg/inh inhalation aerosol Start: 02/10/22 16:17:00 EDT, 2 puff, inhaled, bid, Disp# 30.6 g, Refills: 3, Pharmacy: [facility] Start Date: 02/10/22 Status: Ordered buPROPion 150 mg/24 hours (XL) oral tablet, extended release Start: 04/21/23 9:41:00 EST, 1 tab, PO, Daily, Disp# 90 tab, Refills: 3, Pharmacy: [facility] Start Date: 04/21/23 Status: Ordered ciprofloxacin 500 mg oral tablet Start: 12/21/22 14:18:00 EDT, 1 tab, PO, q12h, Disp# 20 tab, 20 each, TAKE ONE TABLET BY MOUTH EVERY 12 HOURS, Pharmacy: [id number] Start Date: 12/21/22 Stop Date: 12/31/22 Status: Ordered Cosentyx Sensoready Pen 150 mg/mL SQ solution Start: 05/18/23 8:56:00 EST, See Instructions, Disp# 12 pen_needle, Refills: 3, inject 2 every 4 weeks rotate injection sites, Note to Pharmacy: attn: specialty pharmacy, Pharmacy: [facility] Start Date: 05/18/23 Status: Ordered Crestor 40 mg oral tablet Start: 12/28/22 12:11:00 EDT, 1 tab, PO, qhs, Disp# 90 tab, Refills: 3, Pharmacy: [facility] Start Date: 12/28/22 Status: Ordered dicyclomine 10 mg oral capsule Start: 12/28/22 12:11:00 EDT, 1 cap, PO, qid, Disp# 360 cap, Refills: 3, [facility] Start Date: 12/28/22 Status: Ordered fenofibrate micronized 200 mg oral capsule Start: 12/28/22 12:11:00 EDT, 1 cap, PO, Daily, Disp# 90 cap, Refills: 3, Pharmacy: [facility] Start Date: 12/28/22 Status: Ordered Flomax 0.4 mg oral capsule Start: 11/09/22 11:59:00 EDT, 1 cap, PO, Daily, Disp# 90 cap, Refills: 3, Pharmacy: [facility] Start Date: 11/09/22 Status: Ordered fluocinonide 0.05% topical cream Start: 12/14/22 14:03:00 EDT, 1 appl, topical, bid, Disp# 45 g, Refills: 3, apply to arms and legs,Pharmacy: [facility] Start Date: 12/14/22 Status: Ordered FLUoxetine 20 mg oral capsule Start: 12/31/22 8:31:00 EDT, 2 cap, PO, bid, Disp# 360 cap, Refills: 3, Pharmacy: [facility] Start Date: 12/31/22 Status: Ordered gabapentin 400 mg oral capsule Start: 03/23/23 16:03:00 EST, 1 cap, PO, tid, Disp# 270 cap, Refills: 3, Pharmacy: [facility] Start Date: 03/23/23 Status: Ordered GoLYTELY oral powder for reconstitution Start: 07/10/18 12:19:00 EDT, See Instructions, Disp# 4,000 mL, Take over 1-2 days until bowels evacuated, then start taking Miralax and stool softener daily, Pharmacy: [facility] 61 Start Date: 07/10/18 Status: Ordered hydrALAZINE 25 mg oral tablet Start: 04/22/23 14:26:00 EST, 1 tab, PO, bid, Disp# 180 tab, Refills: 3, Pharmacy: [facility] Start Date: 04/22/23 Status: Ordered Imdur 30 mg oral tablet, extended release Start: 12/28/22 12:11:00 EDT, 1 tab, PO, bid, Disp# 180 tab, Refills: 3, Pharmacy: [facility] Start Date: 12/28/22 Status: Ordered Imitrex 50 mg oral tablet Start: 02/01/22 10:12:00 EDT, 1 tab, PO, ONCE, Disp# 90 tab, Refills: 3, may repeat dose once in 2 hours, PRN: as needed for migraine headache, Pharmacy: [facility] Start Date: 02/01/22 Status: Ordered lidocaine 5% topical cream Start: 04/22/14 15:35:00, PRN apply to affected area twice daily Start Date: 04/22/14 Status: Ordered lisinopril 20 mg oral tablet Start: 03/15/23 8:40:00 EST, 1 tab, PO, Daily, Disp# 90 tab, Refills: 3, Pharmacy: [facility] Start Date: 03/15/23 Status: Ordered magnesium oxide 400 mg (241.3 mg elemental magnesium) oral tablet Start: 12/07/21 16:53:00 EDT, 400 mg =, PO, tid, Disp# 90 tab, Refills: 11, Pharmacy: [facility] Start Date: 12/07/21 Status: Ordered magnesium sulfate [...] bid, Disp# 360 tab, Refills: 3, Pharmacy: [facility] Start Date: 02/16/23 Status: Ordered metroNIDAZOLE 500 mg oral tablet Start: 12/21/22 14:18:00 EDT, 1 tab, PO, q8h, Disp# 30 tab, 30 each, TAKE ONE TABLET BY MOUTH EVERY8 HOURS FOR 10 DAYS, Pharmacy: [facility] Start Date: 12/21/22 Stop Date: 12/31/22 Status: Ordered nitroglycerin 0.4 mg sublingual tablet Start: 01/31/20 13:54:00 EDT, 1 tab, SL, q5min, Disp# 25 tab, Refills: 1, not to exceed 3 doses/15 min--if pain persists, seek medical attention, PRN: as needed for chest pain, Pharmacy: [facility] Start Date: 01/31/20 Status: Ordered omeprazole 20 mg oral delayed release capsule Start: 12/28/22 16:33:00 EDT, 1 cap, PO, Daily, Disp# 90 cap, Refills: 3, Pharmacy: [facility] Start Date: 12/28/22 Status: Ordered ondansetron 4 mg oral tablet, disintegrating Start: 02/01/22 10:12:00 EDT, 1 tab, PO, bid, Disp# 180 tab, Refills: 3, PRN: as needed for nausea/vomiting, Pharmacy: [facility] Start Date: 02/01/22 Status: Ordered oxygen Start: 01/29/20 14:32:00 EDT, oxygen, 2 liters of o2 bled in to cpap Start Date: 01/29/20 Status: Ordered Pepcid 20 mg oral tablet Start: 04/27/23 8:10:00 EST, 1 tab, PO, bid, Disp# 180 tab, Refills: 3, Pharmacy: [facility] Start Date: 04/27/23 Status: Ordered Robaxin 500 mg oral tablet Start: 04/27/23 8:10:00 EST, 1 tab, PO, qhs, Disp# 30 tab, Refills: 0, take at night as needed; no heavy machinery use or driving after taking, Pharmacy: [facility] Start Date: 04/27/23 Status: Ordered Toprol-XL 50 mg oral tablet, extended release Start: 02/03/23 20:36:00 EDT, 1 tab, PO, qhs, Disp# 90 tab, Refills: 3, Pharmacy: [facility] Start Date: 02/03/23 Status: Ordered Veltassa 8.4 g oral powder for reconstitution Start: 03/18/22 14:57:00 EST, 8.4 g =, PO, Daily, Disp# 60 g, Refills: 0, Pharmacy: [facility] Start Date: 03/18/22 Status: Ordered Ventolin HFA [...] tid, Disp# 300 cap, Refills: 1, Pharmacy: [facility] Start Date: 04/19/23 Status: [...] Weight disorder Confirmed Active 30/03/14 taken from [facility] records. take from [facility] records 3taken from [facility] records 4taken from [facility] records. 5taken from [facility] record 02/14/2004 6taken from [facility] 7taken from [facility] records. 8taken from [facility] records. 9taken from [facility] Procedures Procedure Date Related Diagnosis Body Site [...] bladder dome. no evidence of absecess or chapsi perforation bilateral nephrolithiasis. no hydronephrosis. 2Examined esophagus [...] addiitonal findings renal cysts, liver cysts, R inguinal hernia [facility] abd pain. A/P CT c/w sigmoid [...] liters of 02 31Capsule endoscopy mentioned in [facility] records as negative but do not have [...] done 06/2013 showing above 36renal [facility] from [facility]. conclusion no evidence of hemodynamically significant [...] have primary report. 41with bx rectum 42per [facility] records mentions a CT 07/2009 showing pancrease calcified. Do not have primary report 43UGI 44fracture Results Laboratory List Name Date Magnesium Level (MAGNESIUM) 05/17/23 Request to FAX Report (First Location) ( ACC NO TO BE FAXED) 05/17/23 Most recent to oldest [Reference Range]: 1 Phone No [phone] (05/17/23 11:01 AM) Faxed on: 05/18/23 09:13 (05/17/23 11:01 AM) Mg [1.6-2.3 mg/dL] 1.8 mg/dL 2 (05/17/23 11:01 AM) 1Result Comment: Testing Performed By: Dept of Pathology [facility] [address], [address], [place] [address] 2Result Comment: Testing Performed By: Dept of Pathology [facility] [address], [address], [place] [address] Social History Social History Type Response Tobacco Former smoker, Cigar ettes, 7 per day. 35 year(s). Stopped age 55 Years. Smoking Status Former Smoker, quit > 1 yr Sex Male Patient Care team information Care Team Personnel Name: Abel Ha DO, Mariana Annette Position: Physician - Family Med Member Role: Primary Care Provider Address: Address: [address] [place] [address] [address] [place] [address] [place] Name: Poncho Azul Kelly B Position: Pharmacist Member Role: Pharmacy - Lifetime Address: Address: [address] [place] [id number] Care Team Related Persons Name: MARISA OLIVEIRA Address: [address] [facility] [facility] [phone]
--- OUTSIDE RECORDS SUMMARY | 2023-05-26 19:56 | External Medical Summary | Continuity of Care Document ---
Author Name Unknown Organization [facility] [address] Address [address] [place], [place] [id number] Care Team Providers Care Finance Broker Name Role Phone Yuri Moore Primary Care Physician [phone] Encounter [facility] [id number] Date(s): 05/04/23 - 05/04/23 [facility] [address] [facility] [address] [facility] 1 [place], [place] [phone] Encounter Diagnosis Hypomagnesemia(Final) - Discharge Disposition: Home [...] PDMP, PRN: as needed for anxiety, Pharmacy: [facility] Start Date: 10/25/22 Status: Ordered ALPRAZolam 0.25 mg oral tablet Start: 10/25/22 15:00:00 EDT, 1 tab, PO, tid, Disp# 270 tab, Refills: 0, Note to Pharmacy: PDMP, PRN: as needed for anxiety, Pharmacy: [facility] Start Date: 10/25/22 Status: Ordered amLODIPine 5 mg oral tablet Start: 03/15/23 8:40:00 EST, 1 tab, PO, Daily, Disp# 90 tab, Refills: 3, [facility] Start Date: 03/15/23 Status: Ordered aspirin 81 mg oral tablet Start: 04/22/14 15:47:00, 1 tab, PO, Daily Start Date: 04/22/14 Status: Ordered Augmentin 875 mg-125 mg oral tablet Start: 04/08/23 10:37:00 EST, amoxicillin 1 tab, PO, q12h, Disp# 20, Refills: 0, Pharmacy: [id number] Start Date: 04/08/23 Stop Date: 04/18/23 Status: Ordered budesonide-formoterol 160 mcg-4.5 mcg/inh inhalation aerosol Start: 02/10/22 16:17:00 EDT, 2 puff, inhaled, bid, Disp# 30.6 g, Refills: 3, Pharmacy: [facility] Start Date: 02/10/22 Status: Ordered buPROPion 150 mg/24 hours (XL) oral tablet, extended release Start: 04/21/23 9:41:00 EST, 1 tab, PO, Daily, Disp# 90 tab, Refills: 3, Pharmacy: [facility] Start Date: 04/21/23 Status: Ordered ciprofloxacin 500 mg oral tablet Start: 12/21/22 14:18:00 EDT, 1 tab, PO, q12h, Disp# 20 tab, 20 each, TAKE ONE TABLET BY MOUTH EVERY 12 HOURS, Pharmacy: [id number] Start Date: 12/21/22 Stop [...] qhs, Disp# 90 tab, Refills: 3, Pharmacy: [facility] Start Date: 12/28/22 Status: Ordered dicyclomine 10 mg oral capsule Start: 12/28/22 12:11:00 EDT, 1 cap, PO, qid, Disp# 360 cap, Refills: 3, Pharmacy: [facility] Start Date: 12/28/22 Status: Ordered fenofibrate micronized 200 mg oral capsule Start: 12/28/22 12:11:00 EDT, 1 cap, PO, Daily, Disp# 90 cap, Refills: 3, Pharmacy: [facility] Start Date: 12/28/22 Status: Ordered Flomax 0.4 mg oral capsule Start: 11/09/22 11:59:00 EDT, 1 cap, PO, Daily, Disp# 90 cap, Refills: 3, Pharmacy: [facility] Start Date: 11/09/22 Status: Ordered fluocinonide 0.05% topical cream Start: 12/14/22 14:03:00 EDT, 1 appl, topical, bid, Disp# 45 g, Refills: 3, apply to arms and legs,Pharmacy: [facility] Start Date: 12/14/22 Status: Ordered FLUoxetine 20 mg oral capsule Start: 12/31/22 8:31:00 EDT, 2 cap, PO, bid, Disp# 360 cap, Refills: 3, Pharmacy: [facility] Start Date: 12/31/22 Status: Ordered gabapentin 400 mg oral capsule Start: 03/23/23 16:03:00 EST, 1 cap, PO, tid, Disp# 270 cap, Refills: 3, Pharmacy: [facility] Start Date: 03/23/23 Status: Ordered GoLYTELY oral powder for reconstitution Start: 07/10/18 12:19:00 EDT, See Instructions, Disp# 4,000 mL, Take over 1-2 days until bowels evacuated, then start taking Miralax and stool softener daily, Pharmacy: [facility] Start Date: 07/10/18 Status: Ordered hydrALAZINE 25 mg oral tablet Start: 04/22/23 14:26:00 EST, 1 tab, PO, bid, Disp# 180 tab, Refills: 3, Pharmacy: [facility] Start Date: 04/22/23 Status: Ordered Imdur 30 mg oral tablet, extended release Start: 12/28/22 12:11:00 EDT, 1 tab, PO, bid, Disp# 180 tab, Refills: 3, Pharmacy: [facility] Start Date: 12/28/22 Status: Ordered Imitrex 50 mg oral tablet Start: 02/01/22 10:12:00 EDT, 1 tab, PO, ONCE, Disp# 90 tab, Refills: 3, may repeat dose once in 2 hours, PRN: as needed for migraine headache, Pharmacy: [facility] Start Date: 02/01/22 Status: Ordered lidocaine 5% topical cream Start: 04/22/14 15:35:00, PRN apply to affected area twice daily Start Date: 04/22/14 Status: Ordered lisinopril 20 mg oral tablet Start: 03/15/23 8:40:00 EST, 1 tab, PO, Daily, Disp# 90 tab, Refills: 3, [facility]: [facility] Start Date: 03/15/23 Status: Ordered magnesium oxide 400 mg (241.3 mg elemental magnesium) oral tablet Start: 12/07/21 16:53:00 EDT, 400 mg =, PO, tid, Disp# 90 tab, Refills: 11, Pharmacy: [facility] Start Date: 12/07/21 Status: Ordered magnesium sulfate [...] bid, Disp# 360 tab, Refills: 3, Pharmacy: [facility] Start Date: 02/16/23 Status: Ordered metroNIDAZOLE 500 mg oral tablet Start: 12/21/22 14:18:00 EDT, 1 tab, PO, q8h, Disp# 30 tab, 30 each, TAKE ONE TABLET BY MOUTH EVERY8 HOURS FOR 10 DAYS, Pharmacy: [id number] Start Date: 12/21/22 Stop Date: 12/31/22 Status: Ordered nitroglycerin 0.4 mg sublingual tablet Start: 01/31/20 13:54:00 EDT, 1 tab, SL, q5min, Disp# 25 tab, Refills: 1, not to exceed 3 doses/15 min--if pain persists, seek medical attention, PRN: as needed for chest pain, Pharmacy: [id number] Start Date: 01/31/20 Status: Ordered omeprazole 20 mg oral delayed release capsule Start: 12/28/22 16:33:00 EDT, 1 cap, PO, Daily, Disp# 90 cap, Refills: 3, [facility] Start Date: 12/28/22 Status: Ordered ondansetron 4 mg oral tablet, disintegrating Start: 02/01/22 10:12:00 EDT, 1 tab, PO, bid, Disp# 180 tab, Refills: 3, PRN: as needed for nausea/vomiting, [facility] Start Date: 02/01/22 Status: Ordered oxygen Start: 01/29/20 14:32:00 EDT, oxygen, 2 liters of o2 bled in to cpap Start Date: 01/29/20 Status: Ordered Pepcid 20 mg oral tablet Start: 04/27/23 8:10:00 EST, 1 tab, PO, bid, Disp# 180 tab, Refills: 3, Pharmacy: [facility] Start Date: 04/27/23 Status: Ordered Robaxin 500 mg oral tablet Start: 04/27/23 8:10:00 EST, 1 tab, PO, qhs, Disp# 30 tab, Refills: 0, take at night as needed; no heavy machinery use or driving after taking, Pharmacy: [facility] Start Date: 04/27/23 Status: Ordered Toprol-XL 50 mg oral tablet, extended release Start: 02/03/23 20:36:00 EDT, 1 tab, PO, qhs, Disp# 90 tab, Refills: 3, Pharmacy: [facility] Start Date: 02/03/23 Status: Ordered Veltassa 8.4 g oral powder for reconstitution Start: 03/18/22 14:57:00 EST, 8.4 g =, PO, Daily, Disp# 60 g, Refills: 0, Pharmacy: [facility] [id number] Start Date: 03/18/22 Status: Ordered Ventolin HFA 90 mcg/inh inhalation aerosol Start: 02/10/22 16:16:00 EDT, See Instructions, Disp# 20.1 g, Refills: 3, 2 puffs every 4 hrs as needed for cough or wheezing, [facility] Start Date: 02/10/22 Status: Ordered Vitamin A, D oral capsule Start: 04/22/14 15:43:00, 1 cap, PO, Daily, Start Date: 04/22/14 Status: Ordered Vitamin B Complex Start: 04/05/17 14:33:00 Start Date: 04/05/17 Status: Ordered Zenpep 10,000 units-32,000 units-42,000 units oral delayed release capsule Start: 04/19/23 12:20:00 EST, 1 cap, PO, tid, Disp# 300 cap, Refills: 1, Pharmacy: [facility] Start Date: 04/19/23 Status: [...] Weight disorder Confirmed Active 30/03/14 taken from [employer] records. take from [employer] records 3taken from [employer] records 4taken from [employer] records. 5taken from [employer] record 02/14/2004 6taken from [employer] 7taken from [employer] records. 8taken from [employer] records. 9taken from [employer] Procedures Procedure Date Related Diagnosis Body Site [...] findings renal cysts, liver cysts, R inguinalhernia [facility] ER abd pain. A/P CT c/w sigmoid [...] liters of 02 31Capsule endoscopy mentioned in [facility] records as negative but do not have [...] done 06/2013 showing above 36[facility]. conclusion no evidence of hemodynamically significant [...] have primary report. 41with bx rectum 42per [facility] records mentions a CT 07/2009 showing pancrease calcified. Do not have primary report 43UGI 44fracture Results Laboratory List Name Date Magnesium Level (MAGNESIUM) 05/04/23 Request to FAX Report (First Location) ( ACC NO TO BE FAXED) 05/04/23 Most recent to oldest [Reference Range]: 1 Phone No [phone] (05/04/23 1:22 PM) Faxed on: 05/05/23 09:15 (05/04/23 1:22 PM) Mg [1.6-2.3 mg/dL] 1.7 mg/dL 2 (05/04/23 1:22 PM) 1Result Comment: Testing Performed By: Dept of Pathology [facility] [address], [address], [place] [address] 2Result Comment: Testing Performed By: Dept of Pathology [facility] [address], [address] [place] [address] Social History Social History Type Response Tobacco Former smoker, Cigar ettes, 7 per day. 35 year(s). Stopped age 55 Years. Smoking Status Former Smoker, quit > 1 yr Sex Male Patient Care team information Care Team Personnel Name: Poncho Azul Kelly B Position: Pharmacist Member Role: Pharmacy - Lifetime Address: Address: [address] [place] [address] [place] Name: MD Oscar, Yuri Position: Physician Member Role: Primary Care Provider Address: Address: [address] [place] [address], [place] [address] Care Team Related Persons Name: MARISA OLIVEIRA Address: home [address] [facility] [place] [id number]
--- OUTSIDE RECORDS SUMMARY | 2023-05-26 19:56 | External Medical Summary | Continuity of Care Document ---
Author Name Unknown Organization [facility] [address] [facility] [address] Address [address] [place], [place] [id number] Care Team Providers Care Timber Robber Name Role Phone Roman Montse Ha Primary Care P kenn [phone] [id number] Date(s): 05/23/23 - 05/23/23 [facility] [address] [facility] [address] 1 [facility] [address] [facility], [address] [place], [place] [phone] Encounter Diagnosis Hypomagnesemia(Final) - Discharge Disposition: Home [...] PDMP, PRN: as needed for anxiety, [facility]: [facility] Start Date: 10/25/22 Status: Ordered ALPRAZolam 0.25 mg oral tablet Start: 10/25/22 15:00:00 EDT, 1 tab, PO, tid, Disp# 270 tab, Refills: 0, Note to Pharmacy: PDMP, PRN: as needed for anxiety, [facility]: [facility] Start Date: 10/25/22 Status: Ordered amLODIPine 5 mg oral tablet Start: 03/15/23 8:40:00 EST, 1 tab, PO, Daily, Disp# 90 tab, Refills: 3, Pharmacy: [facility] Start Date: 03/15/23 Status: Ordered aspirin 81 mg oral tablet Start: 04/22/14 15:47:00, 1 tab, PO, Daily Start Date: 04/22/14 Status: Ordered Augmentin 875 mg-125 mg oral tablet Start: 04/08/23 10:37:00 EST, amoxicillin 1 tab, PO, q12h, Disp# 20, Refills: 0, Pharmacy: [id number] Start Date: 04/08/23 Stop Date: 04/18/23 Status: Ordered budesonide-formoterol 160 mcg-4.5 mcg/inh inhalation aerosol Start: 02/10/22 16:17:00 EDT, 2 puff, inhaled, bid, Disp# 30.6 g, Refills: 3, Pharmacy: [facility] Start Date: 02/10/22 Status: Ordered buPROPion 150 mg/24 hours (XL) oral tablet, extended release Start: 04/21/23 9:41:00 EST, 1 tab, PO, Daily, Disp# 90 tab, Refills: 3, Pharmacy: [facility] Start Date: 04/21/23 Status: Ordered ciprofloxacin 500 mg oral tablet Start: 12/21/22 14:18:00 EDT, 1 tab, PO, q12h, Disp# 20 tab, 20 each, TAKE ONE TABLET BY MOUTH EVERY 12 HOURS, Pharmacy: [facility] Start Date: 12/21/22 Stop Date: 12/31/22 Status: Ordered Cosentyx Sensoready Pen 150 mg/mL SQ solution Start: 05/18/23 8:56:00 EST, See Instructions, Disp# 12 pen_needle, Refills: 3, inject 2 every 4 weeks rotate injection sites, Note to Pharmacy: attn: specialty pharmacy, Pharmacy: [facility] Start Date: 05/18/23 Status: Ordered Crestor 40 mg oral tablet Start: 12/28/22 12:11:00 EDT, 1 tab, PO, qhs, Disp# 90 tab, Refills: 3, Pharmacy: [facility] Start Date: 12/28/22 Status: Ordered dicyclomine 10 mg oral capsule Start: 12/28/22 12:11:00 EDT, 1 cap, PO, qid, Disp# 360 cap, Refills: 3, [facility] Start Date: 12/28/22 Status: Ordered fenofibrate micronized 200 mg oral capsule Start: 12/28/22 12:11:00 EDT, 1 cap, PO, Daily, Disp# 90 cap, Refills: 3, Pharmacy: [facility] Start Date: 12/28/22 Status: Ordered Flomax 0.4 mg oral capsule Start: 11/09/22 11:59:00 EDT, 1 cap, PO, Daily, Disp# 90 cap, Refills: 3, Pharmacy: [facility] Start Date: 11/09/22 Status: Ordered fluocinonide 0.05% topical cream Start: 12/14/22 14:03:00 EDT, 1 appl, topical, bid, Disp# 45 g, Refills: 3, apply to arms and legs,Pharmacy: [facility] Start Date: 12/14/22 Status: Ordered FLUoxetine 20 mg oral capsule Start: 12/31/22 8:31:00 EDT, 2 cap, PO, bid, Disp# 360 cap, Refills: 3, Pharmacy: [facility] Start Date: 12/31/22 Status: Ordered gabapentin 400 mg oral capsule Start: 03/23/23 16:03:00 EST, 1 cap, PO, tid, Disp# 270 cap, Refills: 3, Pharmacy: [facility] Start Date: 03/23/23 Status: Ordered GoLYTELY oral powder for reconstitution Start: 07/10/18 12:19:00 EDT, See Instructions, Disp# 4,000 mL, Take over 1-2 days until bowels evacuated, then start taking Miralax and stool softener daily, Pharmacy: [facility] Start Date: 07/10/18 Status: Ordered hydrALAZINE 25 mg oral tablet Start: 04/22/23 14:26:00 EST, 1 tab, PO, bid, Disp# 180 tab, Refills: 3, Pharmacy: [facility] Start Date: 04/22/23 Status: Ordered Imdur 30 mg oral tablet, extended release Start: 12/28/22 12:11:00 EDT, 1 tab, PO, bid, Disp# 180 tab, Refills: 3, Pharmacy: [facility] Start Date: 12/28/22 Status: Ordered Imitrex 50 mg oral tablet Start: 02/01/22 10:12:00 EDT, 1 tab, PO, ONCE, Disp# 90 tab, Refills: 3, may repeat dose once in 2 hours, PRN: as needed for migraine headache, Pharmacy: [facility] Start Date: 02/01/22 Status: Ordered lidocaine 5% topical cream Start: 04/22/14 15:35:00, PRN apply to affected area twice daily Start Date: 04/22/14 Status: Ordered lisinopril 20 mg oral tablet Start: 03/15/23 8:40:00 EST, 1 tab, PO, Daily, Disp# 90 tab, Refills: 3, Pharmacy: [facility] Start Date: 03/15/23 Status: Ordered magnesium oxide 400 mg (241.3 mg elemental magnesium) oral tablet Start: 12/07/21 16:53:00 EDT, 400 mg =, PO, tid, Disp# 90 tab, Refills: 11, Pharmacy: [facility] Start Date: 12/07/21 Status: Ordered magnesium [...] bid, Disp# 360 tab, Refills: 3, Pharmacy: [facility] Start Date: 02/16/23 Status: Ordered metroNIDAZOLE 500 mg oral tablet Start: 12/21/22 14:18:00 EDT, 1 tab, PO, q8h, Disp# 30 tab, 30 each, TAKE ONE TABLET BY MOUTH EVERY8 HOURS FOR 10 DAYS, Pharmacy: [id number] Start Date: 12/21/22 Stop Date: 12/31/22 Status: Ordered nitroglycerin 0.4 mg sublingual tablet Start: 01/31/20 13:54:00 EDT, 1 tab, SL, q5min, Disp# 25 tab, Refills: 1, not to exceed 3 doses/15 min--if pain persists, seek medical attention, PRN: as needed for chest pain, Pharmacy: [facility] Start Date: 01/31/20 Status: Ordered omeprazole 20 mg oral delayed release capsule Start: 12/28/22 16:33:00 EDT, 1 cap, PO, Daily, Disp# 90 cap, Refills: 3, Pharmacy: [facility] Start Date: 12/28/22 Status: Ordered ondansetron 4 mg oral tablet, disintegrating Start: 02/01/22 10:12:00 EDT, 1 tab, PO, bid, Disp# 180 tab, Refills: 3, PRN: as needed for nausea/vomiting, Pharmacy: [facility] Start Date: 02/01/22 Status: Ordered oxygen Start: 01/29/20 14:32:00 EDT, oxygen, 2 liters of o2 bled in to cpap Start Date: 01/29/20 Status: Ordered Pepcid 20 mg oral tablet Start: 04/27/23 8:10:00 EST, 1 tab, PO, bid, Disp# 180 tab, Refills: 3, Pharmacy: [facility] Start Date: 04/27/23 Status: Ordered Robaxin 500 mg oral tablet Start: 04/27/23 8:10:00 EST, 1 tab, PO, qhs, Disp# 30 tab, Refills: 0, take at night as needed; no heavy machinery use or driving after taking, Pharmacy: [facility] Start Date: 04/27/23 Status: Ordered Toprol-XL 50 mg oral tablet, extended release Start: 02/03/23 20:36:00 EDT, 1 tab, PO, qhs, Disp# 90 tab, Refills: 3, Pharmacy: [facility] Start Date: 02/03/23 Status: Ordered Veltassa 8.4 g oral powder for reconstitution Start: 03/18/22 14:57:00 EST, 8.4 g =, PO, Daily, Disp# 60 g, Refills: 0, Pharmacy: [facility] Start Date: 03/18/22 Status: Ordered Ventolin [...] tid, Disp# 300 cap, Refills: 1, Pharmacy: [facility] Start Date: 04/19/23 Status: [...] Weight disorder Confirmed Active 30/03/14 taken from [employer] records. take from [employer] records 3taken from [employer] records 4taken from [employer] records. 5taken from [employer] record 02/14/2004 6taken from [employer] 7taken from [employer] records. 8taken from [employer] records. 9taken from [employer] Procedures Procedure Date Related Diagnosis Body Site [...] findings renal cysts, liver cysts, R [facility]. A/P CT c/w sigmoid [...] of 02 31Capsule endoscopy mentioned in [facility] records as negative but do [...] showing above 36renal artery from [facility] records. conclusion no evidence of hemodynamically significant [...] primary report. 41with bx rectum 42per [facility] records mentions a CT 07/2009 showing pancrease calcified. Do not have primary report 43UGI 44fracture Results Laboratory List Name Date Magnesium Level (MAGNESIUM) 05/23/23 Request to FAX Report (First Location) ( ACC NO TO BE FAXED) 05/23/23 Most recent to oldest [Reference Range]: 1 Phone No [phone] (05/23/23 1:10 PM) Faxed on: 05/24/23 09:17 (05/23/23 1:10 PM) Mg [1.6-2.3 mg/dL] 1.6 mg/dL 2 (05/23/23 1:10 PM) 1Result Comment: Testing Performed By: Dept of Pathology [facility] [address], [address], [place] [address] 2Result Comment: Testing Performed By: Dept of Pathology [facility] [address], [address], [place] [address] Social History Social History Type Response Tobacco Former smoker, Cigar ettes, 7 per day. 35 year(s). Stopped age 55 Years. Smoking Status Former Smoker, quit > 1 yr Sex Male Patient Care team information Care Team Personnel Name: Abel Ha DO, Mariana Annette Position: Physician - Family Med Member Role: Primary Care Provider Address: Address: [address] [place] [address] [address] [place] [address] [place] Name: Poncho Azul Kelly B Position: Pharmacist Member Role: Pharmacy - Lifetime Address: Address: [address] [place] [address] Care Team Related Persons Name: MARISA OLIVEIRA Address: home [address] [facility] [facility] [phone]
[2023-05-26] MEDS: HYDROmorphone INJ 1 MG/ML SYRINGE IV PRN (20:00)
[2023-05-26] MEDS ORDERED: ALPRAZolam 0.25 MG TABLET PO PRN (20:46)
[2023-05-26] MEDS: ISOSORBIDE MONO EXTENDED REL 30 MG TABCR PO SCH (22:11)
[2023-05-26] MEDS: FENOFIBRATE NANOCRYSTALLIZED 48 MG TABLET PO SCH (22:11)
[2023-05-26] MEDS: TAMSULOSIN HCL 0.4 MG CAP PO SCH (22:11)
[2023-05-26] MEDS: hydrALAZINE HCL 25 MG TAB PO SCH (22:11)
[2023-05-26] MEDS: FLUoxetine HCL 20 MG CAP PO SCH (22:12)
[2023-05-26] MEDS: ROSUVASTATIN CALCIUM 20 MG TAB PO SCH (22:13)
[2023-05-26] MEDS: ACETAMINOPHEN 1,000 MG/100 ML VIAL IV SCH (22:13)
[2023-05-26] MEDS: buPROPion XL 150 MG TABCR PO SCH (22:13)
[2023-05-26] MEDS: METOPROLOL SUCC 50MG EXT REL TAB PO SCH (22:13)
[2023-05-26] MEDS: GABAPENTIN 400 MG CAP PO SCH (22:13)
[2023-05-27] MEDS: CIPROFLOXACIN / D5W 400 MG/200 ML BAG IV SCH (00:18)
[2023-05-27 06:22] LABS: Basophils # (auto) 0.02 K/uL (0.00-0.20); Basophils % (auto) 0.2 %; Eosinophils # (auto) 0.01 K/uL (0.00-0.50); Eosinophils % (auto) 0.1 %; Hematocrit (blood only) 34.1 % (42.0-52.0); Hemoglobin 10.7 g/dl (14.0-18.0); Immature Granulocytes # (auto) 0.03 K/uL (0.01-0.20); Immature Granulocytes % (auto) 0.3 %; Lymphocytes # (auto) 2.32 K/uL (1.20-3.40); Lymphocytes % (auto) 25.4 %; Mean Corpuscular Hemoglobin 28.7 pg (25.0-34.0); Mean Corpuscular Hgb Conc 31.4 g/dL (32.0-36.0); Mean Corpuscular Volume 91.4 fL (80.0-100.0); Mean Platelet Volume 9.6 fL (9.4-12.4); Monocytes # (auto) 0.82 K/uL (0.11-0.59); Neutrophils # (auto) 5.95 K/uL (1.40-6.50); Platelet Count 211 K/uL (130-400); RDW Coefficient of Variation 12.7 % (11.5-14.5); RDW Standard Deviation 42.2 fL (36.4-46.3); Red Blood Count 3.73 M/uL (4.70-6.10); White Blood Count 9.15 K/ul (4.8-10.8)
[2023-05-27 06:35] LABS: BUN Creatinine Ratio 12.6 (10-20); Calcium 8.2 mg/dl (8.6-10.3); Creatinine Clr Calc Pharmacy 88.8 ml/min; Est GFR (African American) 90.4 ml/min; Magnesium 1.9 mg/dl (1.7-2.4); Potassium 3.9 mmol/L (3.5-5.1)
[2023-05-27] MEDS ORDERED: HYDROmorphone INJ 0.5 MG/0.5 ML SYR IV PRN (07:39)
--- NOTE | 2023-05-27 07:45 | Surgery Progress Note ---
Date of Service May 27, 2023 Assessment & Plan (1) S/P laparoscopic-assisted sigmoidectomy: Plan: POD#1 lap sigmoid colectomy WBC 9, Hbg 10. Vitals are stable Pt with pain overnight, but this AM is feeling a bit better. On standing IV apap, prn IV dilaudid, po oxy. will adjust IV pain to q2h, if unable to get comfortable today may consider BACK WEDGER He denies nausea/vomiting. Been taking in water okay. will start clear liquids and see how he fairs D/c bazan catheter Encourage OOB as able and pulmonary toilet with IS LORENA drain with 215cc sanguinous output documented. Will hold Lovenox one more day and consider starting tomorrow Appreciate the hospitalists following along with us for assistance with medical management as above. doing ok....was upset at some nursing care issues but we talked through that. we will add a marine propulsion technician to help with pain management. hold lovenox another day. Admission and Anticipated Discharge Date Admission Date: May 26, 2023 Subjective Patient feeling pretty good this AM. He did not have a great night related to pain and difficulty sleeping (the latter is typical for him). He has been drinking water without issues. Denies nausea/vomiting. Has been out of bed at least 1x. Physical Exam Physical Exam: awake/alert, no distress Respiratory: normal respiratory effort Gastrointestinal (Abdomen): Inspection/Auscultation: + abdomen distended (mild), + abdominal surgical incision (c/d/i) and + abdominal surgical drain present (sangenous; 215cc documented) Percussion/Palpation: + abdomen tender (expected discomfort, mostly upper midline and LLQ) and abdomen soft; no guarding Results & Data Vital Signs (Past 12 Hours) Vital Signs Temp Pulse Pulse Resp BP Pulse Ox O2 Del Method 05/27/23 03:53 98.2 F 84 20 148/81 H 94 Room Air, CPAP 05/27/23 00:18 98.2 F 73 18 119/67 93 Room Air, CPAP 05/26/23 22:09 68 163/90 H 05/26/23 19:57 98.8 F 75 18 165/85 H 97 Nasal Cannula O2 Flow Rate 05/27/23 03:53 05/27/23 00:18 05/26/23 22:09 05/26/23 19:57 3 PG Care Time/CCT Total # of Minutes Spent Total Time Spent with Patient: Total time spent is greater than 50% in coordination of care (as documented) at patient's floor/unit and/or counseling patient: Coding Level of Care Code 21848 Post Operative Follow-Up Diagnoses S/P laparoscopic-assisted sigmoidectomy Z90.49
[2023-05-27] MEDS: aMILoride HCL 5 MG TAB PO SCH (07:58)
[2023-05-27] MEDS: amLODIPine BESYLATE 5 MG TAB PO SCH (07:58)
[2023-05-27] MEDS: lisinopril 20 MG TAB PO SCH (07:59)
[2023-05-27] MEDS: PANCREAZE (LIPASE 10,500U) CAP PO SCH (07:59)
[2023-05-27] MEDS: PANTOprazole 40 MG TAB PO SCH (07:59)
[2023-05-27] MEDS: ASPIRIN 81 MG ECTAB PO SCH (08:00)
--- NOTE | 2023-05-27 08:10 | Hospitalist Progress Note ---
Date of Service May 27, 2023 Assessment & Plan (1) S/P laparoscopic-assisted sigmoidectomy: (2) CAD (coronary artery disease): (3) Anxiety and depression: (4) Hypertension: (5) Hypercholesterolemia: (6) Diabetes mellitus: (7) BPH (benign prostatic hyperplasia): (8) Chronic pancreatitis: Plan S/p Sigmoid colectomy(patient w/ significant hx, had diverticulitis at least 5 times this past year reported) s/p Laparoscopic Sigmoid Colectomy(Not Applicable) - Sunday Calle, DO on 05/26 for diverticulitis.EBL 300cc, LORENA output 215cc thus far this morning Clear liquid diet tolerated IVF per primary, IV Zosyn WBC wnl, afebrile Hgb 12--> 10.7, acute blood loss anemia in setting of surgery/EBL/LORENA output and dilutional aspect from IVF suspected. Asymptomatic at present Pain control, antiemetics per primary service -- adjusted dilaudid to q2h per primary service Ambulation encouraged, pulmonary toilet Bazan to be dc per primary service DVT proph: Lovenox being held one more day per primary given EBL/LORENA output. Castro hose/SCDs in place at present time. Ambulation encouraged CAD Imdur, metoprolol continued Aspirin to rersume when ok w/ primary service- messaged vale from surgery to discuss HTN Chronic, stable 135/83 Continues on amlodipine, lisinopril, hydralazine, amiloride HLD Continues on fenofibrate, rosuvastatin JAY - Ordered CPAP for this evening. Can place order for own unit if has/able to bring Anemia Baseline ~12s, stable at 10 given EBL 300cc/215cc sanguinous output from LORENA drain and will monitor Anxiety/Depression Chronic, stable. Remains on xanax prn, bupropion, fluoxetine GERD Continues on protonix in place of omeprazole while inpatient. No increased reflux reported and will monitor Emphysema Albuterol PRN, no SOB/wheezing -CPAP ordered for this evening Chronic Pancreatitis Pancreatic enzyme replacement T2DM metformin held on admission, pharmacy on consult for glycemic management and BSGs stable BPH Bazan to be removed today, monitor UOP/for any retention issues flomax HS continued Admission and Anticipated Discharge Date Admission Date: May 26, 2023 Supervising Physician Co-Signing Physician Notes The patient was not seen by me. The chart was reviewed. Case discussed with HOMERO Roblero. Agree with assessment and plan Subjective Eval this morning around 9am, doing pretty good. TOlerated some clear liquid di et for breakfast and ambulated the halls. Not sure if passing any gas but discussed continued ambulation. Bazan to be removed this morning, presently with clear yellow urine. No fever/chills, chest pain, shortness of breath. Pain creeping up and would like something in next 20-30 minutes if possible to stay ahead of the pain. No increased LE edema/calf tenderness. Physical Exam Physical Exam: WD/WN male sitting up in bed, NAD but reporting pain creeping back up/need for medication soon HEENT: head atraumatic, normocephalic, mmm, trachea midline, +thick neck Resp: Even/unlabored, slightly diminished in the bases, no w/r, on room air CV: RRR, no significant m/r/g, no pitting edema/calf tenderness, castro hose in place GI: + BS, slightly hypoactive RUQ, +distension, dressings c/d/i, scant bloody drainage to R lap site w/ LORENA, serosanguineous drainage present appropriately tender to palpation no overt warmth/rebound : bazan draining clear yellow urine MSK/Neuro: nonfocal, no slurred speech/facial droop, answering questions appropriately, Results & Data Results & Data Vital Signs (Past 12 Hours) Vital Signs Temp Pulse Pulse Resp BP Pulse Ox O2 Del Method 05/27/23 07:45 36.8 C 65 16 135/83 92 Room Air 05/27/23 03:53 36.8 C 84 20 148/81 H 94 Room Air, CPAP 05/27/23 00:18 36.8 C 73 18 119/67 93 Room Air, CPAP 05/26/23 22:09 68 163/90 H Laboratory Results 05/27/23 05/27/23 05/27/23 Range/Units 07:43 06:01 05:48 WBC 9.15 (4.8-10.8) K/ul RBC 3.73 L (4.70-6.10) M/uL Hgb 10.7 L (14.0-18.0) g/dl Hct 34.1 L (42.0-52.0) % MCV 91.4 (80.0-100.0) fL MCH 28.7 (25.0-34.0) pg MCHC 31.4 L (32.0-36.0) g/dL RDW Std Deviation 42.2 (36.4-46.3) fL RDW Coeff of Lady 12.7 (11.5-14.5) % Plt Count 211 (130-400) K/uL MPV 9.6 (9.4-12.4) fL Immature Gran % (Auto) 0.3 % Neut % (Auto) 65.0 % Lymph % (Auto) 25.4 % White % (Auto) 9.0 % Eos % (Auto) 0.1 % Baso % (Auto) 0.2 % Neut # (Auto) 5.95 (1.40-6.50) K/uL Lymph # (Auto) 2.32 (1.20-3.40) K/uL White # (Auto) 0.82 H (0.11-0.59) K/uL Eos # (Auto) 0.01 (0.00-0.50) K/uL Baso # (Auto) 0.02 (0.00-0.20) K/uL Immature Gran # (Auto) 0.03 (0.01-0.20) K/uL Sodium 136 (136-145) mmol/L Potassium 3.9 (3.5-5.1) mmol/L Chloride 102 (98-107) mmol/L Carbon Dioxide 27 (21-32) mmol/L Anion Gap 7 (3-11) BUN 13 (6-23) mg/dl Creatinine 1.03 (0.6-1.4) mg/dl Est Cr Clr Drug Dosing 88.8 ml/min Est GFR ( Amer) 90.4 ml/min Est GFR (Non-Af Amer) 78.0 ml/min BUN/Creatinine Ratio 12.6 (10-20) Glucose 109 H (70-99(Fasting)) mg/dl POC Glucose 109 H 120 H (70-99) mg/dl Calcium 8.2 L (8.6-10.3) mg/dl Magnesium 1.9 (1.7-2.4) mg/dl Blood Type Antibody Screen 05/27/23 05/26/23 05/26/23 Range/Units 00:15 16:05 12:12 WBC (4.8-10.8) K/ul RBC (4.70-6.10) M/uL Hgb (14.0-18.0) g/dl Hct (42.0-52.0) % MCV (80.0-100.0) fL MCH (25.0-34.0) pg MCHC (32.0-36.0) g/dL RDW Std Deviation (36.4-46.3) fL RDW Coeff of Lady (11.5-14.5) % Plt Count (130-400) K/uL MPV (9.4-12.4) fL Immature Gran % (Auto) % Neut % (Auto) % Lymph % (Auto) % White % (Auto) % Eos % (Auto) % Baso % (Auto) % Neut # (Auto) (1.40-6.50) K/uL Lymph # (Auto) (1.20-3.40) K/uL White # (Auto) (0.11-0.59) K/uL Eos # (Auto) (0.00-0.50) K/uL Baso # (Auto) (0.00-0.20) K/uL Immature Gran # (Auto) (0.01-0.20) K/uL Sodium (136-145) mmol/L Potassium (3.5-5.1) mmol/L Chloride (98-107) mmol/L Carbon Dioxide (21-32) mmol/L Anion Gap (3-11) BUN (6-23) mg/dl Creatinine (0.6-1.4) mg/dl Est Cr Clr Drug Dosing ml/min Est GFR ( Amer) ml/min Est GFR (Non-Af Amer) ml/min BUN/Creatinine Ratio (10-20) Glucose (70-99(Fasting)) mg/dl POC Glucose 134 H 124 H 114 H (70-99) mg/dl Calcium (8.6-10.3) mg/dl Magnesium (1.7-2.4) mg/dl Blood Type Antibody Screen 05/26/23 Range/Units 11:32 WBC (4.8-10.8) K/ul RBC (4.70-6.10) M/uL Hgb (14.0-18.0) g/dl Hct (42.0-52.0) % MCV (80.0-100.0) fL MCH (25.0-34.0) pg MCHC (32.0-36.0) g/dL RDW Std Deviation (36.4-46.3) fL RDW Coeff of Lady (11.5-14.5) % Plt Count (130-400) K/uL MPV (9.4-12.4) fL Immature Gran % (Auto) % Neut % (Auto) % Lymph % (Auto) % White % (Auto) % Eos % (Auto) % Baso % (Auto) % Neut # (Auto) (1.40-6.50) K/uL Lymph # (Auto) (1.20-3.40) K/uL White # (Auto) (0.11-0.59) K/uL Eos # (Auto) (0.00-0.50) K/uL Baso # (Auto) (0.00-0.20) K/uL Immature Gran # (Auto) (0.01-0.20) K/uL Sodium 137 (136-145) mmol/L Potassium 4.1 (3.5-5.1) mmol/L Chloride 102 (98-107) mmol/L Carbon Dioxide 28 (21-32) mmol/L Anion Gap 7 (3-11) BUN 18 (6-23) mg/dl Creatinine 1.13 (0.6-1.4) mg/dl Est Cr Clr Drug Dosing 80.9 ml/min Est GFR ( Amer) 80.9 ml/min Est GFR (Non-Af Amer) 69.8 ml/min BUN/Creatinine Ratio 15.9 (10-20) Glucose 107 H (70-99(Fasting)) mg/dl POC Glucose (70-99) mg/dl Calcium 9.5 (8.6-10.3) mg/dl Magnesium (1.7-2.4) mg/dl Blood Type O Positive Antibody Screen NEGATIVE PG Care Time/CCT Total # of Minutes Spent Total Time Spent with Patient: Total time spent is greater than 50% in coordination of care (as documented) at patient's floor/unit and/or counseling patient: Coding Level of Care Code 72136 SUB INP/OBS CARE MIN Diagnoses S/P laparoscopic-assisted sigmoidectomy Z90.49 CAD (coronary artery disease) I25.10 Anxiety and depression F41.9; F32.A Hypertension I10 Hypercholesterolemia E78.00 Diabetes mellitus E11.9 BPH (benign prostatic hyperplasia) N40.0 Chronic pancreatitis K86.1
[2023-05-27] MEDS: INSULIN ASPART PER UNIT CHARGE SC SCH (08:40)
[2023-05-27] MEDS ORDERED: NON-FORMULARY MEDICATION (Coenzyme Q10 [Co Q-10] 200 mg Capsule) PO SCH (09:00)
[2023-05-27] MEDS: HYDROmorphone INJ 1 MG/ML SYRINGE IV PRN (09:04)
[2023-05-27] MEDS ORDERED: NALOXONE HCL 0.4 MG/1 ML VIAL/CARP IV PRN (12:40)
[2023-05-27] MEDS ORDERED: LORazepam 1 MG in SYRINGE 0.5 ML IV PRN (12:41)
[2023-05-27] MEDS: HYDROmorphone PCA 30 MG/30 ML IV PRN (13:52)
[2023-05-27] MEDS: SODIUM CHLORIDE 0.9% 1,000 ML IV SCH (13:52)
--- NOTE | 2023-05-27 14:03 | Pharmacy Report ---
Pharmacy Glycemic Short Note 2 - Date of Service May 27, 2023 - Glycemic Short BSG Results (Last 24 hours): 05/26/23 05/27/23 05/27/23 16:05 00:15 05:48 Glucose POC Glucose 124 H 134 H 120 H 05/27/23 05/27/23 06:01 07:43 Glucose 109 H POC Glucose 109 H OUTPATIENT ANTIDIABETIC REGIMEN: * Metformin 1gm PO BID * HbA1c: pending with am labs ASSESSMENT: * Mr Magdaleno is a 62yo diabetic M POD #1 s/p sigmoid colectomy. * BSGs have been well-controlled thus far, without the administration of any insulin. * Will hold off on adding any basal insulin at this time, as it does not appear as though pt requires at this time. * Pt has been advanced to clears, which he seems to be tolerating. Insulin needs may change as diet advances. * Pharmacy will continue to follow during admission and adjust regimen as indicated. PLAN FOR INPATIENT GLYCEMIC CONTROL: * Hold outpatient oral diabetes medications * Basal insulin * none * Bolus insulin * NovoLog per scale ACHS or Q6hrs while NPO * Goal Range: Low 110 mg/dL - High 140 mg/dL * Correction Factor: 25 mg/dL/unit * Nutritional / Prandial insulin per carb ratio of 1 unit per 9 grams CHO consumed
[2023-05-27] MEDS: PANCREAZE (LIPASE 10,500U) CAP PO PRN (20:55)
[2023-05-28 07:08] LABS: Basophils # (auto) 0.01 K/uL (0.00-0.20); Basophils % (auto) 0.1 %; Eosinophils # (auto) 0.06 K/uL (0.00-0.50); Eosinophils % (auto) 0.8 %; Hematocrit (blood only) 32.7 % (42.0-52.0); Hemoglobin 10.4 g/dl (14.0-18.0); Immature Granulocytes # (auto) 0.03 K/uL (0.01-0.20); Immature Granulocytes % (auto) 0.4 %; Lymphocytes # (auto) 1.16 K/uL (1.20-3.40); Lymphocytes % (auto) 15.5 %; Mean Corpuscular Hemoglobin 28.7 pg (25.0-34.0); Mean Corpuscular Hgb Conc 31.8 g/dL (32.0-36.0); Mean Corpuscular Volume 90.3 fL (80.0-100.0); Mean Platelet Volume 9.6 fL (9.4-12.4); Monocytes # (auto) 0.74 K/uL (0.11-0.59); Monocytes % (auto) 9.9 %; Neutrophils # (auto) 5.49 K/uL (1.40-6.50); Neutrophils % (auto) 73.3 %; Platelet Count 193 K/uL (130-400); RDW Coefficient of Variation 12.9 % (11.5-14.5); RDW Standard Deviation 42.6 fL (36.4-46.3); Red Blood Count 3.62 M/uL (4.70-6.10); White Blood Count 7.49 K/ul (4.8-10.8)
[2023-05-28 07:24] LABS: Estimated Average Glucose 134 mg/dl; Hemoglobin A1C 6.3 % (4.5-5.6)
--- NOTE | 2023-05-28 07:40 | Hospitalist Progress Note ---
Date of Service May 28, 2023 Assessment & Plan (1) S/P laparoscopic-assisted sigmoidectomy: (2) CAD (coronary artery disease): (3) Anxiety and depression: (4) Hypertension: (5) Hypercholesterolemia: (6) Diabetes mellitus: (7) BPH (benign prostatic hyperplasia): (8) Chronic pancreatitis: (9) Hypomagnesemia: Plan S/p Sigmoid colectomy(patient w/ significant hx, had diverticulitis at least 5 times this past year reported) s/p Laparoscopic Sigmoid Colectomy(Not Applicable) - Sunday Calle, DO on 05/26 for diverticulitis.EBL 300cc, LORENA output 215cc thus far this morning Clear liquid diet tolerated IVF/abx per primary service (abx stopped after 24hrs post-op) WBC wnl, afebrile Hgb 12--> 10.7 --> 10.4 --acute blood loss anemia in setting of surgery/EBL/LORENA output and dilutional aspect from IVF suspected. Asymptomatic at present Pain control, antiemetics per primary service -- on dilaudid ARCHITECTURAL DRAFTER Passing gas Continue ambulation, pulmonary toilet. CPAP ordered but unable to use w/ CO2 monitor for ARCHITECTURAL DRAFTER and utilizing 2L as needed DVT proph: Lovenox SQ added today, continue castro hose/SCDs Hypomagnesemia Mag 1.5 -- 3gm IV ordered. Of note, getting transfusions through [facility] w/ Dr Everett, on PO supplemnetation at baseline which was resumed and will montor on AM labs CAD Imdur, metoprolol continued Aspirin resumed 05/27 HTN Chronic, stable 126/70 Continues on amlodipine, lisinopril, hydralazine, will hold amiloride to prevent dehydration/slightly elevated Cr from prior and will monitor. Monitor for increased LE edema (none today) HLD Continues on fenofibrate, rosuvastatin JAY - Ordered CPAP for this evening. Can place order for own unit if has/able to bring Anemia Baseline ~12s, stable at 10 given EBL 300cc/215cc sanguinous output from LORENA drain and will monitor Anxiety/Depression Chronic, stable. Remains on xanax prn, bupropion, fluoxetine GERD Continues on protonix in place of omeprazole while inpatient. No increased reflux reported and will monitor Emphysema Albuterol PRN, no SOB/wheezing -CPAP ordered, but was unable to use due to CO2 probe from ARCHITECTURAL DRAFTER Chronic Pancreatitis Pancreatic enzyme replacement T2DM metformin held on admission, pharmacy on consult for glycemic management and BSGs stable BPH Pickard removed 05/27, continue flomax HS. Denied any retention issues Hospitalist service will follow along. Please call with any questions/concerns. Admission and Anticipated Discharge Date Admission Date: May 26, 2023 Supervising Physician Co-Signing Physician Notes The patient was not seen by me. The chart was reviewed. Case discussed with HOMERO Roblero. Agree with assessment and plan Subjective Eval this morning, doing well. Pain controlled with ARCHITECTURAL DRAFTER. He got cleaned up this morning and passing increased flatus and reported feeling much better since that. Not yet seen by surgery but discussed would defer advancement of diet to surgery. Discussed holding amiloride to prevent dehydration (he notes urinating a lot yesterday) but that he also tried to holld this in the past with Dr Everett but he had increased ankle edema and was resumed. Mag 1.5, 3gm IV ordered. He notes he does get frequent transfusions through [facility] via Dr Everett for magnesium at baseline, once weekly and previously was up to twice weekly. Will resume slow mag while inpatient as well to prevent lows. No fever/chills, chest pain, shortness of breath at this time. Physical Exam 2 Physical Exam: WD/WN male sitting up in bed, appears much more comfortable HEENT: head atraumatic, normocephalic, mmm, trachea midline, +thick neck Resp: Even/unlabored, slightly diminished in the bases, no w/r, on 2L w/ ARCHITECTURAL DRAFTER pump CV: RRR, no significant m/r/g, no pitting edema/calf tenderness, castro hose in place GI: +bowel sounds improved, less distension, dressings c/d/i, scant output to LORENA drain appropriately tender to palpation no overt warmth/rebound MSK/Neuro: nonfocal, no slurred speech/facial droop, answering questions appropriately Psych: AOX3, cooperative and pleasant Results & Data Results & Data Vital Signs (Past 12 Hours) Vital Signs Temp Pulse Resp BP Pulse Ox O2 Del Method O2 Flow Rate 05/28/23 06:02 36.8 C 84 20 113/73 94 Nasal Cannula 2 05/27/23 23:30 36.9 C 83 16 117/66 94 Nasal Cannula 2 05/27/23 21:00 Nasal Cannula, CPAP 2 Laboratory Results 05/28/23 06:37 A1c 6.3 PG Care Time/CCT Total # of Minutes Spent Total Time Spent with Patient: Total time spent is greater than 50% in coordination of care (as documented) at patient's floor/unit and/or counseling patient: Coding Level of Care Code 81598 SUB INP/OBS CARE 3/50MIN Diagnoses S/P laparoscopic-assisted sigmoidectomy Z90.49 CAD (coronary artery disease) I25.10 Anxiety and depression F41.9; F32.A Hypertension I10 Hypercholesterolemia E78.00 Diabetes mellitus E11.9 BPH (benign prostatic hyperplasia) N40.0 Chronic pancreatitis K86.1 Hypomagnesemia E83.42
[2023-05-28 07:49] LABS: BUN Creatinine Ratio 10.7 (10-20); Calcium 8.5 mg/dl (8.6-10.3); Creatinine Clr Calc Pharmacy 74.9 ml/min; Est GFR (African American) 73.7 ml/min; Est GFR (Non-African American) 63.6 ml/min; Magnesium 1.5 mg/dl (1.7-2.4); Potassium 4.4 mmol/L (3.5-5.1)
[2023-05-28] MEDS: MAGNESIUM SULFATE / D5W 1 GM/100 ML BAG IV SCH (09:03)
--- NOTE | 2023-05-28 09:59 | Pharmacy Report ---
Pharmacy Glycemic Short Note 2 - Date of Service May 28, 2023 - Glycemic Short BSG Results (Last 24 hours): 05/27/23 05/27/23 05/28/23 16:11 20:31 06:37 Glucose 123 H POC Glucose 106 H 92 05/28/23 07:34 Glucose POC Glucose 109 H OUTPATIENT ANTIDIABETIC REGIMEN: * Metformin 1000 mg PO BID * HbA1c: 6.3% (05/28/23) ASSESSMENT: 05/28: * Jg received 3 units of insulin yesterday, all bolus. BSGs were: 120-106-92 mg/dL. Refused lunch BSG. * Fasting BSG was 109 mg/dL this AM. Continue to hold basal insulin. * Given trend down in BSGs yesterday, will loosen Novolog this AM. * If BSGs remain stable today, will likely resume metformin tomorrow and sign off. 05/27: * Mr Magdaleno is a 62yo diabetic M POD #1 s/p sigmoid colectomy. * BSGs have been well-controlled thus far, without the administration of any insulin. * Will hold off on adding any basal insulin at this time, as it does not appear as though pt requires at this time. * Pt has been advanced to clears, which he seems to be tolerating. Insulin needs may change as diet advances. * Pharmacy will continue to follow during admission and adjust regimen as indicated. PLAN FOR INPATIENT GLYCEMIC CONTROL: * Hold outpatient oral diabetes medications * Basal insulin * None * Bolus insulin * NovoLog per scale ACHS or Q6hrs while NPO * Goal Range: Low 110 mg/dL - High 140 mg/dL * Correction Factor: 30 mg/dL/unit * Nutritional / Prandial insulin per carb ratio of 1 unit per 10 grams CHO consumed
--- NOTE | 2023-05-28 11:50 | Surgery Progress Note ---
Date of Service May 28, 2023 Assessment & Plan (1) S/P laparoscopic-assisted sigmoidectomy: Plan: Postoperative day #2 Doing as expected Stay on clear liquids for now until better bowel function Will likely DC CHIEF PAYROLL CLERK tomorrow. Continue ambulation Admission and Anticipated Discharge Date Admission Date: May 26, 2023 Subjective Patient seen. Feeling much better than yesterday. Pain dramatically improved with CHIEF PAYROLL CLERK. He did pass some gas. He is tolerating clear liquids Physical Exam Physical Exam: Alert no acute distress His abdomen is slightly distended. Expected incisional tenderness Results & Data Vital Signs (Past 12 Hours) Vital Signs Temp Pulse Resp BP Pulse Ox O2 Del Method O2 Flow Rate 05/28/23 07:51 36.8 C 74 16 126/70 94 Nasal Cannula 2 05/28/23 06:02 36.8 C 84 20 113/73 94 Nasal Cannula 2 PG Care Time/CCT Total # of Minutes Spent Total Time Spent with Patient: Total time spent is greater than 50% in coordination of care (as documented) at patient's floor/unit and/or counseling patient: Coding Level of Care Code 85203 Post Operative Follow-Up Diagnoses S/P laparoscopic-assisted sigmoidectomy Z90.49
[2023-05-28] MEDS: ENOXAPARIN INJ 40 MG/0.4 ML SYR SQ SCH (11:59)
[2023-05-28] MEDS: MAGNESIUM CHLORIDE W/CALCIUM 64MG DELAYED REL TAB PO SCH (14:17)
[2023-05-28] MEDS: metFORMIN HCL 500 MG TAB PO SCH (16:47)
--- NOTE | 2023-05-29 07:31 | Hospitalist Progress Note ---
Date of Service May 29, 2023 Assessment & Plan (1) S/P laparoscopic-assisted sigmoidectomy: Plan: S/p Sigmoid colectomy(patient w/ significant hx, had diverticulitis at least 5 times this past year reported) s/p Laparoscopic Sigmoid Colectomy(Not Applicable) - Sunday Calle, DO on 05/26 for diverticulitis.EBL 300cc, LORENA output 215cc thus far this morning IVF/abx per primary service (abx stopped after 24hrs post-op) WBC wnl, afebrile Hgb 12--> 10.7 --> 10.4--> 10.2 on continued IVF (discontinued AM 05/29) --acute blood loss anemia in setting of surgery/EBL/LORENA output and dilutional aspect from IVF suspected. Asymptomatic at present Pain control, antiemetics per primary service -- on dilaudid NET SQL DEVELOPER, which is being dc'd today Continues to pass gas, no BM. Ambulation encouraged Diet to be advanced to full liquids this afternoon per primary Continue pulmonary toilet. CPAP ordered but unable to use w/ CO2 monitor for NET SQL DEVELOPER and utilizing 2L as needed DVT proph: Lovenox SQ, castro hose/SCDs (2) CAD (coronary artery disease): Plan: CAD Imdur, metoprolol continued Aspirin resumed 05/27 JAY CPAP ordered (has unit in room) -- hopefully able to utilize this evening once NET SQL DEVELOPER discontinued (3) Hypomagnesemia: Plan: Hypomagnesemia Mag 1.5 -- 3gm IV ordered and 1.6 on repeat. Of note, getting transfusions through [facility] w/ Dr Everett, on PO supplementation at baseline which was resumed a additional 2gm IV ordered and will monitor level in AM (4) Hypertension: Plan: HTN Chronic, stable Continues on amlodipine, lisinopril, hydralazine Amiloride held 05/28 for slight dehydration, improved on repeat exam and slight pedal edema and was resumed for 05/29 and will monitor HLD Continues on fenofibrate, rosuvastatin (5) Hypercholesterolemia: (6) Diabetes mellitus: Plan: T2DM metformin held on admission, pharmacy on consult for glycemic management and BSGs stable (7) Anxiety and depression: Plan: Anxiety/Depression Chronic, stable. Remains on xanax prn, bupropion, fluoxetine (8) BPH (benign prostatic hyperplasia): Plan: BPH Pickard removed 05/27, continue flomax HS. Denied any retention issues (9) Chronic pancreatitis: Plan: Chronic Pancreatitis Pancreatic enzyme replacement Other chronic medical problems Anemia Baseline ~12s, stable at 10 given EBL 300cc/LORENA output and stable on repeat GERD Continues on protonix in place of omeprazole while inpatient. No increased reflux reported and will monitor Mag replacement as above Emphysema Albuterol PRN, no SOB/wheezing -CPAP ordered, but was unable to use due to CO2 probe from NET SQL DEVELOPER - hopeful use tonight as outlined Plan continued inpatient stay through the weekend, awaiting return of bowel function, ambulation encouraged Thank you for allowing hospitalist service to participate in the care of Mr Magdaleno. Hospitalist service will follow along. Please call with any questions/concerns. Admission and Anticipated Discharge Date Admission Date: May 26, 2023 Supervising Physician Co-Signing Physician Notes The patient was not seen by me. The chart was reviewed. Case discussed with HOMERO Roblero. Agree with assessment and plan Subjective Eval this morning, pain much better controlled compared to other days. Possible dc NET SQL DEVELOPER pump once seen by surgery. Passing some gas last night and into this morning. Diet possible advance to full liquids once seen by surgery but defer as would take it slow. Ambulation encouraged. Mag improved but still low and additional replacement ordered and will monitor. No CP/SOB reported. On 2L w/ CO2 probe, hopefully able to use his CPAP tonight once NET SQL DEVELOPER discontinued. Questions/concerns addressed at this time. Physical Exam Physical Exam: WD/WN male sitting up in bed, appears much more comfortable HEENT: head atraumatic, normocephalic, mmm, trachea midline, +thick neck Resp: Even/unlabored, slightly diminished in the bases, no w/r, on 2L w/ NET SQL DEVELOPER pump CV: RRR, no significant m/r/g, no pitting edema/calf tenderness, castro hose in place GI: +bowel sounds improved, less distension, dressings c/d/i, scant output to LORENA drain appropriately tender to palpation, ?possible irritation from stitch to umbilical incision no overt warmth/rebound MSK/Neuro: nonfocal, no slurred speech/facial droop, answering questions appropriately Psych: AOX3, cooperative and pleasant Results & Data Results & Data Vital Signs (Past 12 Hours) Vital Signs Temp Pulse Resp BP Pulse Ox O2 Del Method O2 Flow Rate 05/29/23 00:00 37.3 C 81 18 128/74 94 Room Air 05/28/23 20:45 Nasal Cannula 2 05/28/23 20:19 37.5 C 75 18 136/79 93 Room Air Laboratory Results 05/29/23 05/28/23 05/28/23 Range/Units 07:16 20:37 16:30 WBC 7.40 (4.8-10.8) K/ul RBC 3.51 L (4.70-6.10) M/uL Hgb 10.2 L (14.0-18.0) g/dl Hct 31.6 L (42.0-52.0) % MCV 90.0 (80.0-100.0) fL MCH 29.1 (25.0-34.0) pg MCHC 32.3 (32.0-36.0) g/dL RDW Std Deviation 42.0 (36.4-46.3) fL RDW Coeff of Lady 12.9 (11.5-14.5) % Plt Count 177 (130-400) K/uL MPV 9.5 (9.4-12.4) fL Immature Gran % (Auto) 0.4 % Neut % (Auto) 69.4 % Lymph % (Auto) 20.1 % Garrett % (Auto) 8.6 % Eos % (Auto) 1.2 % Baso % (Auto) 0.3 % Neut # (Auto) 5.13 (1.40-6.50) K/uL Lymph # (Auto) 1.49 (1.20-3.40) K/uL Garrett # (Auto) 0.64 H (0.11-0.59) K/uL Eos # (Auto) 0.09 (0.00-0.50) K/uL Baso # (Auto) 0.02 (0.00-0.20) K/uL Immature Gran # (Auto) 0.03 (0.01-0.20) K/uL Sodium 134 L (136-145) mmol/L Potassium 4.4 (3.5-5.1) mmol/L Chloride 104 (98-107) mmol/L Carbon Dioxide 25 (21-32) mmol/L Anion Gap 5 (3-11) BUN 12 (6-23) mg/dl Creatinine 0.89 D (0.6-1.4) mg/dl Est Cr Clr Drug Dosing 102.7 ml/min Est GFR ( Amer) 107.0 ml/min Est GFR (Non-Af Amer) 92.3 ml/min BUN/Creatinine Ratio 13.5 (10-20) Glucose 103 H (70-99(Fasting)) mg/dl POC Glucose 93 102 H (70-99) mg/dl Calcium 8.7 (8.6-10.3) mg/dl Magnesium 1.6 L (1.7-2.4) mg/dl PG Care Time/CCT Total # of Minutes Spent Total Time Spent with Patient: Total time spent is greater than 50% in coordination of care (as documented) at patient's floor/unit and/or counseling patient: Coding Level of Care Code 32406 SUB INP/OBS CARE 3/50MIN Diagnoses S/P laparoscopic-assisted sigmoidectomy Z90.49 CAD (coronary artery disease) I25.10 Hypomagnesemia E83.42 Hypertension I10 Hypercholesterolemia E78.00 Diabetes mellitus E11.9 Anxiety and depression F41.9; F32.A BPH (benign prostatic hyperplasia) N40.0 Chronic pancreatitis K86.1
[2023-05-29 07:39] LABS: Basophils # (auto) 0.02 K/uL (0.00-0.20); Basophils % (auto) 0.3 %; Eosinophils # (auto) 0.09 K/uL (0.00-0.50); Eosinophils % (auto) 1.2 %; Hematocrit (blood only) 31.6 % (42.0-52.0); Hemoglobin 10.2 g/dl (14.0-18.0); Immature Granulocytes # (auto) 0.03 K/uL (0.01-0.20); Immature Granulocytes % (auto) 0.4 %; Lymphocytes # (auto) 1.49 K/uL (1.20-3.40); Lymphocytes % (auto) 20.1 %; Mean Corpuscular Hemoglobin 29.1 pg (25.0-34.0); Mean Corpuscular Hgb Conc 32.3 g/dL (32.0-36.0); Mean Platelet Volume 9.5 fL (9.4-12.4); Monocytes # (auto) 0.64 K/uL (0.11-0.59); Monocytes % (auto) 8.6 %; Neutrophils # (auto) 5.13 K/uL (1.40-6.50); Neutrophils % (auto) 69.4 %; Platelet Count 177 K/uL (130-400); RDW Coefficient of Variation 12.9 % (11.5-14.5); Red Blood Count 3.51 M/uL (4.70-6.10)
[2023-05-29 07:57] LABS: BUN Creatinine Ratio 13.5 (10-20); Calcium 8.7 mg/dl (8.6-10.3); Creatinine Clr Calc Pharmacy 102.7 ml/min; Est GFR (Non-African American) 92.3 ml/min; Magnesium 1.6 mg/dl (1.7-2.4); Potassium 4.4 mmol/L (3.5-5.1)
[2023-05-29] MEDS: MAGNESIUM SULFATE / D5W 1 GM/100 ML BAG IV SCH (09:36)
--- NOTE | 2023-05-29 11:32 | Surgery Progress Note ---
Date of Service May 29, 2023 Assessment & Plan (1) H/O colectomy: Plan: Postoperative day 3 Awaiting full return of bowel function Will advance to full liquids DC RELATIONS LIAISON Admission and Anticipated Discharge Date Admission Date: May 26, 2023 Subjective Patient seen. He is doing well. No bowel movement but continues to pass gas. He is tolerating clear liquids with no nausea Physical Exam Physical Exam: Alert no acute distress His incisions all look good LORENA with small amount of serosanguineous output Results & Data Vital Signs (Past 12 Hours) Vital Signs Temp Pulse Resp BP Pulse Ox O2 Del Method O2 Flow Rate 05/29/23 08:12 37.3 C 76 16 121/78 94 Nasal Cannula 2 05/29/23 07:45 Nasal Cannula, Nasal CPAP, Other 2 05/29/23 00:00 37.3 C 81 18 128/74 94 Room Air PG Care Time/CCT Total # of Minutes Spent Total Time Spent with Patient: Total time spent is greater than 50% in coordination of care (as documented) at patient's floor/unit and/or counseling patient: Coding Level of Care Code 09654 Post Operative Follow-Up Diagnoses H/O colectomy Z90.49
[2023-05-29] MEDS ORDERED: MoRPHine SULFATE 4 MG/ML 1 ML CARP\\VIAL IV PRN (14:05)
[2023-05-29] MEDS: oxyCODONE HCL IR 5 MG TAB (IMMEDIATE RELEASE) PO PRN (16:53)
[2023-05-29] MEDS: ACETAMINOPHEN 325 MG TAB PO PRN (19:59)
[2023-05-30 06:28] LABS: Basophils # (auto) 0.03 K/uL (0.00-0.20); Basophils % (auto) 0.4 %; Eosinophils # (auto) 0.12 K/uL (0.00-0.50); Eosinophils % (auto) 1.8 %; Hematocrit (blood only) 32.9 % (42.0-52.0); Hemoglobin 10.7 g/dl (14.0-18.0); Immature Granulocytes # (auto) 0.03 K/uL (0.01-0.20); Immature Granulocytes % (auto) 0.4 %; Lymphocytes # (auto) 1.72 K/uL (1.20-3.40); Lymphocytes % (auto) 25.1 %; Mean Corpuscular Hemoglobin 29.2 pg (25.0-34.0); Mean Corpuscular Hgb Conc 32.5 g/dL (32.0-36.0); Mean Corpuscular Volume 89.6 fL (80.0-100.0); Mean Platelet Volume 9.7 fL (9.4-12.4); Monocytes # (auto) 0.76 K/uL (0.11-0.59); Monocytes % (auto) 11.1 %; Neutrophils # (auto) 4.18 K/uL (1.40-6.50); Neutrophils % (auto) 61.2 %; Platelet Count 217 K/uL (130-400); RDW Coefficient of Variation 12.8 % (11.5-14.5); RDW Standard Deviation 42.4 fL (36.4-46.3); Red Blood Count 3.67 M/uL (4.70-6.10); White Blood Count 6.84 K/ul (4.8-10.8)
[2023-05-30 06:44] LABS: BUN Creatinine Ratio 13.2 (10-20); Calcium 9.4 mg/dl (8.6-10.3); Creatinine Clr Calc Pharmacy 75.6 ml/min; Est GFR (African American) 74.4 ml/min; Est GFR (Non-African American) 64.2 ml/min; Magnesium 1.6 mg/dl (1.7-2.4)
--- NOTE | 2023-05-30 08:03 | Hospitalist Progress Note ---
Date of Service May 30, 2023 Assessment & Plan (1) S/P laparoscopic-assisted sigmoidectomy: Plan: S/p Sigmoid colectomy(patient w/ significant hx, had diverticulitis at least 5 times this past year reported) s/p Laparoscopic Sigmoid Colectomy(Not Applicable) - Sunday Calle, DO on 05/26 for diverticulitis.EBL 300cc, LORENA output 215cc thus far this morning IVF/abx per primary service (abx stopped after 24hrs post-op) WBC wnl, afebrile Hgb 12--> 10.7 --> 10.4--> 10.2 on continued IVF (discontinued AM 05/29) --acute blood loss anemia in setting of surgery/EBL/LORENA output and dilutional aspect from IVF suspected. Asymptomatic at present Pain control, antiemetics per primary service -- on dilaudid NOTARY PUBLIC, which is being dc'd today Continues to pass gas, no BM. Ambulation encouraged Diet to be advanced to full liquids this afternoon per primary Pulmonary toilet. CPAP DVT proph: Lovenox SQ, castro hose/SCDs 05/30 - +BM overnight reported by nursing. Additional IV mag ordered for today but will order 3gm IV as was provided 2gm day prior and mag remains at 1.6. Continue PO supplementation at d/c and f/u Dr Everett for ongoing needs Full liquid diet at present -- advancement per primary. Dispo per primary service given patient moving bowels if reasonable to dc, ok w/ medicine (2) CAD (coronary artery disease): Plan: CAD Imdur, metoprolol continued. ASA resumed 05/27 JAY CPAP ordered , able to use last night since NOTARY PUBLIC discontinued (3) Hypomagnesemia: Plan: Hypomagnesemia Mag 1.5 -- 3gm IV ordered and 1.6 on repeat. ?2nd to PPI Of note, getting transfusions through [facility] w/ Dr Everett, on PO supplementation at baseline which was resumed Mag 1.6, 3gm IV ordered -- notable if patient to dc he may request less. Ok w/ nephrology f/u for conitnued needs (4) Hypertension: Plan: HTN Chronic, stable Continues on amlodipine, lisinopril, hydralazine AMiloride held 05/30 AM but can resume at dc. No increased LE edema and K was 5.0 on repeat labs. Outpatient follow up HLD Continues on fenofibrate, rosuvastatin (5) Hypercholesterolemia: (6) Diabetes mellitus: Plan: T2DM metformin held on admission, pharmacy on consult for glycemic management and BSGs stable --> metformin resumed/pharmacy signed off GLu on AM labs 116 and acceptable -- outpt f/u (7) Anxiety and depression: Plan: Anxiety/Depression Chronic, stable. Continues on xanax prn, bupropion, fluoxetine (8) BPH (benign prostatic hyperplasia): Plan: BPH Pickard removed 05/27, continue flomax HS. Denied any retention issues (9) Chronic pancreatitis: Plan: Chronic Pancreatitis Pancreatic enzyme replacement Other chronic medical problems: Anemia Baseline ~12s, stable at 10 given EBL 300cc/LORENA output and stable on repeat. No CP/SOB GERD Continues on protonix in place of omeprazole while inpatient. No increased reflux reported and will monitor Mag replacement as above Emphysema Albuterol PRN, no SOB/wheezing -CPAP Plan Thank you for allowing hospitalist service to participate in the care of Mr Magdaleno. Hospitalist service will sign off at this time as patient for discharge per primary service Please call with any questions/concerns. Admission and Anticipated Discharge Date Admission Date: May 26, 2023 Supervising Physician Co-Signing Physician Notes The patient was not seen by me. The chart was reviewed. Case discussed with HOMERO Roblero. Agree with assessment and plan Subjective Evaluated this morning, improving. +BM overnight. Labs stable, w/ exception of mag and additional IV replacement ordered while inpatient however noting if mag ~1.7 in am he hasn't gotten infusions in past w/ 1.6-1.7 but more in the 1.4 range. Discussed w/ abdominal surgery liking to keep replete. Has been pain controlled on oral meds, tolerating full liquid diet. Not yet seen by surgery. Having a little increased bloody drainage from his RLQ site. Will have RN wait hour/see about surgery seeing but if not would have changed this morning. CPAP utilized last night. No fever/chills, chest pain, shortness of breath, nausea/vomiting. Physical Exam Physical Exam: WD/WN male sitting up in bed, appears much more comfortable, NAD, utilizing oral pain control HEENT: head atraumatic, normocephalic, mmm, trachea midline, +thick neck Resp: Even/unlabored, slightly diminished in the bases, no w/r, on room air CV: RRR, no significant m/r/g, no pitting edema/calf tenderness, castro hose in place GI: +BS, appropriately tender to palpation, no guarding/rigidity, +blood to RLQ site, LORENA w/ scant output. RN to change dressing once seen by surgery (entering room after I left) MSK/Neuro: nonfocal, no slurred speech/facial droop, answering questions appropriately Psych: AOX3, cooperative and pleasant Results & Data Results & Data Vital Signs (Past 12 Hours) Vital Signs Temp Pulse Resp BP Pulse Ox O2 Del Method 05/30/23 07:33 36.5 C 74 18 128/80 95 Room Air 05/30/23 06:19 37.0 C 81 16 132/85 95 Room Air Laboratory Results 05/30/23 Range/Units 05:47 WBC 6.84 (4.8-10.8) K/ul RBC 3.67 L (4.70-6.10) M/uL Hgb 10.7 L (14.0-18.0) g/dl Hct 32.9 L (42.0-52.0) % MCV 89.6 (80.0-100.0) fL MCH 29.2 (25.0-34.0) pg MCHC 32.5 (32.0-36.0) g/dL RDW Std Deviation 42.4 (36.4-46.3) fL RDW Coeff of Lady 12.8 (11.5-14.5) % Plt Count 217 (130-400) K/uL MPV 9.7 (9.4-12.4) fL Immature Gran % (Auto) 0.4 % Neut % (Auto) 61.2 % Lymph % (Auto) 25.1 % [place] % (Auto) 11.1 % Eos % (Auto) 1.8 % Baso % (Auto) 0.4 % Neut # (Auto) 4.18 (1.40-6.50) K/uL Lymph # (Auto) 1.72 (1.20-3.40) K/uL [place] # (Auto) 0.76 H (0.11-0.59) K/uL Eos # (Auto) 0.12 (0.00-0.50) K/uL Baso # (Auto) 0.03 (0.00-0.20) K/uL Immature Gran # (Auto) 0.03 (0.01-0.20) K/uL Sodium 134 L (136-145) mmol/L Potassium 5.0 (3.5-5.1) mmol/L Chloride 103 (98-107) mmol/L Carbon Dioxide 26 (21-32) mmol/L Anion Gap 5 (3-11) BUN 16 (6-23) mg/dl Creatinine 1.21 D (0.6-1.4) mg/dl Est Cr Clr Drug Dosing 75.6 ml/min Est GFR ( Amer) 74.4 ml/min Est GFR (Non-Af Amer) 64.2 ml/min BUN/Creatinine Ratio 13.2 (10-20) Glucose 116 H (70-99(Fasting)) mg/dl Calcium 9.4 (8.6-10.3) mg/dl Magnesium 1.6 L (1.7-2.4) mg/dl PG Care Time/CCT Total # of Minutes Spent Total Time Spent with Patient: Total time spent is greater than 50% in coordination of care (as documented) at patient's floor/unit and/or counseling patient: Coding Level of Care Code 98190 SUB INP/OBS CARE 3/50MIN Diagnoses S/P laparoscopic-assisted sigmoidectomy Z90.49 CAD (coronary artery disease) I25.10 Hypomagnesemia E83.42 Hypertension I10 Hypercholesterolemia E78.00 Diabetes mellitus E11.9 Anxiety and depression F41.9; F32.A BPH (benign prostatic hyperplasia) N40.0 Chronic pancreatitis K86.1
[2023-05-30] MEDS: MAGNESIUM SULFATE / D5W 1 GM/100 ML BAG IV SCH (08:38)
--- NOTE | 2023-05-30 10:48 | Surgery Progress Note ---
Date of Service May 30, 2023 Assessment & Plan (1) S/P laparoscopic-assisted sigmoidectomy: Plan: Doing well. Okay for discharge. Instructions reviewed. Follow-up with me in 1 week Admission and Anticipated Discharge Date Admission Date: May 26, 2023 Subjective Patient seen. Feeling well. Had large bowel movement yesterday and is tolerating diet Physical Exam Physical Exam: Alert. No acute distress Incisions all look good. Results & Data Vital Signs (Past 12 Hours) Vital Signs Temp Pulse Resp BP Pulse Ox O2 Del Method 05/30/23 07:33 36.5 C 74 18 128/80 95 Room Air 05/30/23 07:25 Room Air 05/30/23 06:19 37.0 C 81 16 132/85 95 Room Air PG Care Time/CCT Total # of Minutes Spent Total Time Spent with Patient: Total time spent is greater than 50% in coordination of care (as documented) at patient's floor/unit and/or counseling patient: Coding Level of Care Code 77709 Post Operative Follow-Up Diagnoses S/P laparoscopic-assisted sigmoidectomy Z90.49
== END 2023-05-30 12:44 | disposition home or self-care (01) | DRG 330 ==
LOC: ASU 11:12 → 3E 16:03